=== PATIENT | female | born 1930 | race Caucasian/White ===

== ENCOUNTER 2020-03-03 10:48 | Inpatient (IN) | payer MEDICARE, OTHER ==
[~2020-03-03] VITALS: Ht 165.1 cm; Wt 74.6 kg
[2020-03-03] MEDS ORDERED: MORPHINE SULFATE 10 MG/ML VIAL. IV ONE ×3 (11:00→13:30)
--- NOTE | 2020-03-03 11:01 | EKG ---
[facility] [address] [place] [address] Test Date: 2020-03-03 Test Time: 10:59:15 Pat Name: CHANG RYAN Department: Room: Gender: F [employer]: : 1930 Requested By: GURINDER HATCH Order Number: [id number] Reading MD: Measurements Intervals [place] Rate: 105 P: 67 MO: 126 QRS: -36 QRSD: 150 T: 38 QT: 354 QTc: 472 Interpretive Statements SINUS TACHYCARDIA ATRIAL PREMATURE COMPLEX(ES) INTERPOLATED ATRIAL PREMATURE COMPLEX(ES) LEFT ATRIAL ABNORMALITY ABNORMAL LEFT AXIS DEVIATION LEFT ANTERIOR FASCICULAR BLOCK RIGHT BUNDLE BRANCH BLOCK BIFASCICULAR BLOCK QRS(T) CONTOUR ABNORMALITY CONSIDER INFERIOR MYOCARDIAL DAMAGE ABNORMAL ECG
[2020-03-03] MEDS ORDERED: ONDANSETRON PF 4 MG/2 ML VIAL. IVP ONE (11:15)
--- NOTE | 2020-03-03 11:18 | RAD ---
CHEST AP ONLY History: Reason: post CPR / Spl. Instructions: / History: Comparison: None. Findings: Diffuse interstitial thickening. Patchy mid lung opacities. Small left pleural effusion. Normal heart size. No pneumothorax. Impression: 1. Diffuse interstitial thickening and mid lung patchy opacities, may represent pulmonary edema or infection including viral pneumonia. 2. Small left pleural effusion. Electronically signed by: Hong Murray DO (03/03/2020 11:15 AM) [id number]
[2020-03-03 12:14] LABS: BASO # 0.2 x10^3/uL (0.0-0.2); BASO % 1 % (0-3); EOS # 0.9 x10^3/uL (0.0-0.7); EOS % 4 % (0-3); HEMATOCRIT 34.1 % (36.0-47.0); HEMOGLOBIN 11.3 g/dL (12.0-15.5); LYMPH # 2.3 x10^3/uL (1.0-4.8); LYMPH % 9 % (24-48); MEAN CORPUSCULAR HEMOGLOBIN 30 pg (25-35); MEAN CORPUSCULAR HGB CONC 33 g/dL (31-37); MEAN CORPUSCULAR VOLUME 90 fL (79-100); MONO # 0.9 x10^3/uL (0.0-1.1); MONO % 4 % (0-9); NEUT # 20.6 x10^3/uL (1.8-7.7); NEUT % 83 % (31-73); RED BLOOD COUNT 3.79 x10^6/uL (3.50-5.40); RED CELL DISTRIBUTION WIDTH 17.4 % (11.5-14.5); WHITE BLOOD COUNT 24.9 x10^3/uL (4.0-11.0)
[2020-03-03 12:23] LABS: CALCIUM 8.3 mg/dL (8.5-10.1); CREATININE 1.2 mg/dL (0.6-1.0); GFR 42.3; POTASSIUM 3.9 mmol/L (3.5-5.1)
[2020-03-03 13:28] LABS: PROTHROMBIN TIME PATIENT 16.6 SEC (11.7-14.0)
[2020-03-03 13:31] LABS: ALBUMIN 3.5 g/dL (3.4-5.0); DIRECT BILIRUBIN 0.1 mg/dL (0.0-0.2); TOTAL BILIRUBIN 0.3 mg/dL (0.2-1.0)
--- NOTE | 2020-03-03 14:10 | PHYS DOC ---
Past Medical History Past Medical History: Anemia, Arthritis, CHF, Constipation, COPD, Diverticulitis, Other Additional Past Medical Histor: Hypoxemia, Bursitis, Edema, Spinal Stenosis, see attached paperwork Past Surgical History: Other Additional Past Surgical Histo: unknown Smoking Status: Never Smoker Alcohol Use: None General Adult EDM: Chief Complaint: CPR/FULL ARREST HPI: HPI: Patient is a 89 year old female who presents after a possible code. According to EMS patient was at the diagnostic center getting a CT scan when she became apneic and lost a pulse. They did compressions for 9 minutes. She did not receive any medications. Upon EMS arrival patient had a pulse and was breathing on her own. Patient is moaning in pain but awake. She is complaining of shortness of breath. She is unable to provide much history at this time. Review of Systems: Review of Systems: Unable to obtain due to altered mental status Heart Score: Risk Factors: Risk Factors: DM, Current or recent (<one month) smoker, HTN, HLP, family history of CAD, obesity. Risk Scores: Score 0 - 3: 2.5% MACE over next 6 weeks - Discharge Home Score 4 - 6: 20.3% MACE over next 6 weeks - Admit for Clinical Observation Score 7 - 10: 72.7% MACE over next 6 weeks - Early Invasive Strategies Current Medications: Current Medications Medications (Trade) Dose Ordered Sig/Leobardo Start Time Stop Time Status Last Admin Dose Admin Morphine Sulfate (Morphine Sulfate) 5 mg 1X ONCE 03/03/20 13:30 03/03/20 13:31 DC 03/03/20 13:39 5 MG Ondansetron HCl (Zofran) 4 mg 1X ONCE 03/03/20 11:15 03/03/20 11:23 DC 03/03/20 11:46 4 MG Allergies: Allergies: Allergies Coded Allergies Type Severity Reaction Last Updated Verified Penicillins Allergy Intermediate rash 03/03/20 Yes Physical Exam: PE: General: Awake, alert, NAD. Well Nourished, well hydrated. Cooperative HEENT: Atraumatic, EOMI, PERRL, airway patent, moist oral mucosa Neck: Supple, trachea midline Respiratory: CTA bilaterally, normal effort, no wheezing/crackles CV: RRR, no murmur, cap refill <2 GI: Soft, nondistended, nontender, no masses MSK: No obvious deformities Skin: Warm, dry, intact Neuro: Moaning, sensory and motor grossly intact, no focal deficits Psych: Normal affect, normal mood, not suicidal or homicidal Current Patient Data: Labs: Laboratory Tests Test 03/03/20 11:55 White Blood Count 24.9 x10^3/uL (4.0-11.0) H Red Blood Count 3.79 x10^6/uL (3.50-5.40) Hemoglobin 11.3 g/dL (12.0-15.5) L Hematocrit 34.1 % (36.0-47.0) L Mean Corpuscular Volume 90 fL (79-100) Mean Corpuscular Hemoglobin 30 pg (25-35) Mean Corpuscular Hemoglobin Concent 33 g/dL (31-37) Red Cell Distribution Width 17.4 % (11.5-14.5) H Platelet Count 5410 x10^3/uL (140-400) *H Neutrophils (%) (Auto) 83 % (31-73) H Lymphocytes (%) (Auto) 9 % (24-48) L Monocytes (%) (Auto) 4 % (0-9) Eosinophils (%) (Auto) 4 % (0-3) H Basophils (%) (Auto) 1 % (0-3) Neutrophils # (Auto) 20.6 x10^3/uL (1.8-7.7) H Lymphocytes # (Auto) 2.3 x10^3/uL (1.0-4.8) Monocytes # (Auto) 0.9 x10^3/uL (0.0-1.1) Eosinophils # (Auto) 0.9 x10^3/uL (0.0-0.7) H Basophils # (Auto) 0.2 x10^3/uL (0.0-0.2) Platelet Estimate Pending Prothrombin Time 16.6 SEC (11.7-14.0) H Prothrombin Time INR 1.4 (0.8-1.1) H Sodium Level 134 mmol/L (136-145) L Potassium Level 3.9 mmol/L (3.5-5.1) Chloride Level 99 mmol/L (98-107) Carbon Dioxide Level 28 mmol/L (21-32) Anion Gap 7 (6-14) Blood Urea Nitrogen 18 mg/dL (7-20) Creatinine 1.2 mg/dL (0.6-1.0) H Estimated GFR (Cockcroft-Gault) 42.3 Glucose Level 130 mg/dL (70-99) H Calcium Level 8.3 mg/dL (8.5-10.1) L Total Bilirubin 0.3 mg/dL (0.2-1.0) Direct Bilirubin 0.1 mg/dL (0.0-0.2) Aspartate Amino Transferase (AST) 917 U/L (15-37) H Alanine Aminotransferase (ALT) 1067 U/L (14-59) H Alkaline Phosphatase 75 U/L (46-116) Total Protein 6.0 g/dL (6.4-8.2) L Albumin 3.5 g/dL (3.4-5.0) Laboratory Tests 03/03/20 11:55 Laboratory Tests 03/03/20 11:55 Vital Signs: Vital Signs Date Time Temp Pulse Resp B/P (MAP) Pulse Ox O2 Delivery O2 Flow Rate FiO2 03/03/20 13:39 21 90 NonRebreather Mask 03/03/20 10:48 96.6 92 159/73 (101) 96.6 EKG: EKG: [] Radiology/Procedures: Radiology/Procedures: [] Course & Med Decision Making: Course & Med Decision Making Pertinent Labs and Imaging studies reviewed. (See chart for details) Patient is an 89-year-old female presents to the emergency room after having a possible cardiac event. She did receive compressions. She is having chest pain or shortness of breath at this time. Is unclear if this why she had a cardiac event or if the symptoms are caused by her getting chest compressions. Patient is a DNR. This was noted as no further compressions will be done. CT chest, abdomen, pelvis will be ordered. Dragon Disclaimer: Dragon Disclaimer: This electronic medical record was generated, in whole or in part, using a voice recognition dictation system. Departure Departure Impression: Primary Impression: Cardiac arrest Additional Impression: Thrombocythemia Disposition: ADMITTED INPATIENT Condition: STABLE Referrals: JOHNNY BA MD (PCP) Justicifation of Admission Dx: Justifications for Admission: Justification of Admission Dx: Yes Critical Care Time Critical Care: Authorized and Performed by: Gurinder Max MD Total critical care time: approximately 35 minutes Due to a high probability of clinically significant, life threatening deterioration, the patient required my highest level of preparedness to intervene emergently and I personally spent this critical care time directly and personally managing the patient. This critical care time included obtaining a history; examining the patient; pulse oximetry; ventilator management if necessary; ordering and review of studies; arranging urgent treatment with development of a management plan; evaluation of patient's response to treatment; frequent reassessment; discussion with patient/family; and, discussions with other providers. This critical care time was performed to assess and manage the high probability of imminent, life-threatening deterioration that could result in multi-organ failure. It was exclusive of separately billable procedures and treating other patients and teaching time. Please see MDM section and the rest of the note for further information on patient assessment and treatment. GURINDER MAX MD Mar 03, 2020 14:10
--- NOTE | 2020-03-03 14:28 | PDOC1 ---
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 According to EMS patient was at the diagnostic center getting a CT scan of her abdomen and pelvis when she became apneic and lost a pulse. They did compressions for 9 minutes, no medications administered. EMS notes on arrival patient had a pulse and was breathing on her own and was able to talk. She is complaining of shortness of breath and abdominal and chest pain. She tells me she is tired and a little out of sorts. Does note she has had some right-sided numbness that been intermittent recently and is not told the other physicians about this is a little concerned. She does note that prior to this episode she did not have any chest pain. She has been struggling with abdominal pain and swelling and that is the reason she was going for CT scan. She has had dysuria and constipation for the past month. Labs significant for WBC 24.9, hemoglobin 11.3, platelets 5410, INR 1.4, AST 917, ALT 1067, NA 134, K3.4, BUN 18, CR 1.2 Admitted for further care. Past Medical History Cardiovascular: CHF, HTN, Hyperlipidemia Pulmonary: Other (Hypoxia) GI: Constipation, Diverticulosis Heme/Onc: Anemia NOS Hepatobiliary: No pertinent hx Psych: No pertinent hx Rheumatologic: No pertinent hx Infectious disease: No pertinent hx ENT: No pertinent hx Renal/: No pertinent hx Endocrine: No pertinent hx Dermatology: No pertinent hx Past Surgical History Past Surgical History: Total hip replacement (left) Family History Family History: Family History Unknown Social History Smoke: No ALCOHOL: none Drugs: None Current Problem List Problem List Problems Medical Problems: (1) Cardiac arrest Status: Acute (2) Thrombocythemia Status: Acute Current Medications Current Medications Current Medications Morphine Sulfate (Morphine Sulfate) 5 mg 1X ONCE IV Last administered on 03/03/20at 11:25; Start 03/03/20 at 11:00; Stop 03/03/20 at 11:23; Status DC Ondansetron HCl (Zofran) 4 mg 1X ONCE IVP Last administered on 03/03/20at 11:46; Start 03/03/20 at 11:15; Stop 03/03/20 at 11:23; Status DC Morphine Sulfate (Morphine Sulfate) 5 mg 1X ONCE IV Last administered on 03/03/20at 11:46; Start 03/03/20 at 11:45; Stop 03/03/20 at 11:46; Status DC Morphine Sulfate (Morphine Sulfate) 5 mg 1X ONCE IV Last administered on 03/03/20at 13:39; Start 03/03/20 at 13:30; Stop 03/03/20 at 13:31; Status DC Allergies Allergies: Coded Allergies: Penicillins (Verified Allergy, Intermediate, rash, 03/03/20) ROS General: YES: Fatigue, Malaise; No: Chills, Night Sweats, Appetite, Other PSYCHOLOGICAL ROS: YES: Disorientation; No: Anxiety, Behavioral Disorder, Concentration difficultie, Decreased libido, Depression, Hallucinations, Hostility, Irritablity, Memory difficulties, Mood Swings, Obsessive thoughts, Physical abuse, Sexual abuse, Sleep disturbances, Suicidal ideation, Other Eyes: No Blurry vision, No Decreased vision, No Double vision, No Dry eyes, No Excessive tearing, No Eye Pain, No Itchy Eyes, No Loss of vision, No Photo phobia, No Scotomata, No Uses contacts, No Uses glasses, No Other HEENT: No: Heacaches, Visual Changes, Hearing change, Nasal congestion, Nasal discharge, Oral lesions, Sinus pain, Sore Throat, Epistaxis, Sneezing, Snoring, Tinnitus, Vertigo, Vocal changes, Other ALLERGY AND IMMUNOLOGY: No: Hives, Insect Bite Sensitivity, Itchy/Watery Eyes, Nasal Congestion, Post Nasal Drip, Seasonal Allergies, Other Hematological and Lymphatic: No: Bleeding Problems, Blood Clots, Blood Transfusions, Brusing, Night Sweats, Pallor, Swollen Lymph Nodes, Other ENDOCRINE: No: Breast Changes, Galactorrhea, Hair Pattern Changes, Hot Flashes, Malaise/lethargy, Mood Swings, Palpitations, Polydipsia/polyuria, Skin Changes, Temperature Intolerance, Unexpected Weight Changes, Other Breast: No New/Changing Breast Lumps, No Nipple changes, No Nipple discharge, No Other Respiratory: YES: Shortness of breath; No: Cough, Hemoptysis, Orthopnea, Pleuritic Pain, SOB with excertion, Sputum Changes, Stridor, Tachypnea, Wheezing, Other Cardiovascular: yes Chest Pain; No Palpitations, No Orthopnea, No Paroxysmal Noc. Dyspnea, No Edema, No Lt Headedness, No Other Gastrointestinal: Yes Nausea, Yes Abdominal Pain, Yes Diarrhea, Yes Constipation; No Vomiting, No Melena, No Hematochezia, No Other Genitourinary: YES Dysuria, YES Frequency, YES Retention, YES Urgency; No Incontinence, No Hematuria, No Discharge, No Pain, No Flank Pain, No Other, No , No , No , No , No , No , No Musculoskeletal: No Gait Disturbance, No Joint Pain, No Joint Stiffness, No Joint Swelling, No Muscle Pain, No Muscular Weakness, No Pain In:, No Swelling In:, No Other Neurological: No Behavorial Changes, No Bowel/Bladder ControlChng, No Confusion, No Dizziness, No Gait Disturbance, No Headaches, No Impaired Coord/balance, No Memory Loss, No Numbness/Tingling, No Seizures, No Speech Problems, No Tremors, No Visual Changes, No Weakness, No Other Skin: No Dry Skin, No Eczema, No Hair Changes, No Lumps, No Mole Changes, No Mottling, No Nail Changes, No Pruritus, No Rash, No Skin Lesion Changes, No Other, No Acne Physical Exam General: Alert, Cooperative, moderate distress HEENT: Atraumatic, PERRLA, EOMI, Mucous membr. moist/pink Lungs: Other (Basilar crackles) Heart: S1S2, RRR, no thrills, no rubs, no gallops, no murmurs, other (Chest wall tenderness) Abdomen: Normal bowel sounds, No hepatosplenomegaly, No masses, Other (distended, tender RLQ) Rectal Exam: not examined Extremities: No clubbing, No cyanosis, No edema, Normal pulses, No tenderness/swelling Skin: No rashes, No breakdown, No significant lesion Neuro: Normal speech, Strength at 5/5 X4 ext, Normal tone, Sensation intact, Cranial nerves 3-12 NL, Reflexes 2+ Psych/Mental Status: Mental status NL, Mood NL Vitals Vitals Vital Signs Date Time Temp Pulse Resp B/P (MAP) Pulse Ox O2 Delivery O2 Flow Rate FiO2 03/03/20 13:49 98 23 100/56 (71) 100 NonRebreather Mask 15.0 03/03/20 10:48 96.6 96.6 Labs Labs Laboratory Tests Test 03/03/20 11:55 White Blood Count 24.9 x10^3/uL (4.0-11.0) Red Blood Count 3.79 x10^6/uL (3.50-5.40) Hemoglobin 11.3 g/dL (12.0-15.5) Hematocrit 34.1 % (36.0-47.0) Mean Corpuscular Volume 90 fL (79-100) Mean Corpuscular Hemoglobin 30 pg (25-35) Mean Corpuscular Hemoglobin Concent 33 g/dL (31-37) Red Cell Distribution Width 17.4 % (11.5-14.5) Platelet Count 5410 x10^3/uL (140-400) Neutrophils (%) (Auto) 83 % (31-73) Lymphocytes (%) (Auto) 9 % (24-48) Monocytes (%) (Auto) 4 % (0-9) Eosinophils (%) (Auto) 4 % (0-3) Basophils (%) (Auto) 1 % (0-3) Neutrophils # (Auto) 20.6 x10^3/uL (1.8-7.7) Lymphocytes # (Auto) 2.3 x10^3/uL (1.0-4.8) Monocytes # (Auto) 0.9 x10^3/uL (0.0-1.1) Eosinophils # (Auto) 0.9 x10^3/uL (0.0-0.7) Basophils # (Auto) 0.2 x10^3/uL (0.0-0.2) Prothrombin Time 16.6 SEC (11.7-14.0) Prothromb Time International Ratio 1.4 (0.8-1.1) Sodium Level 134 mmol/L (136-145) Potassium Level 3.9 mmol/L (3.5-5.1) Chloride Level 99 mmol/L (98-107) Carbon Dioxide Level 28 mmol/L (21-32) Anion Gap 7 (6-14) Blood Urea Nitrogen 18 mg/dL (7-20) Creatinine 1.2 mg/dL (0.6-1.0) Estimated GFR (Cockcroft-Gault) 42.3 Glucose Level 130 mg/dL (70-99) Calcium Level 8.3 mg/dL (8.5-10.1) Total Bilirubin 0.3 mg/dL (0.2-1.0) Direct Bilirubin 0.1 mg/dL (0.0-0.2) Aspartate Amino Transf (AST/SGOT) 917 U/L (15-37) Alanine Aminotransferase (ALT/SGPT) 1067 U/L (14-59) Alkaline Phosphatase 75 U/L (46-116) Total Protein 6.0 g/dL (6.4-8.2) Albumin 3.5 g/dL (3.4-5.0) Laboratory Tests Test 03/03/20 11:55 White Blood Count 24.9 x10^3/uL (4.0-11.0) Red Blood Count 3.79 x10^6/uL (3.50-5.40) Hemoglobin 11.3 g/dL (12.0-15.5) Hematocrit 34.1 % (36.0-47.0) Mean Corpuscular Volume 90 fL (79-100) Mean Corpuscular Hemoglobin 30 pg (25-35) Mean Corpuscular Hemoglobin Concent 33 g/dL (31-37) Red Cell Distribution Width 17.4 % (11.5-14.5) Platelet Count 5410 x10^3/uL (140-400) Neutrophils (%) (Auto) 83 % (31-73) Lymphocytes (%) (Auto) 9 % (24-48) Monocytes (%) (Auto) 4 % (0-9) Eosinophils (%) (Auto) 4 % (0-3) Basophils (%) (Auto) 1 % (0-3) Neutrophils # (Auto) 20.6 x10^3/uL (1.8-7.7) Lymphocytes # (Auto) 2.3 x10^3/uL (1.0-4.8) Monocytes # (Auto) 0.9 x10^3/uL (0.0-1.1) Eosinophils # (Auto) 0.9 x10^3/uL (0.0-0.7) Basophils # (Auto) 0.2 x10^3/uL (0.0-0.2) Prothrombin Time 16.6 SEC (11.7-14.0) Prothromb Time International Ratio 1.4 (0.8-1.1) Sodium Level 134 mmol/L (136-145) Potassium Level 3.9 mmol/L (3.5-5.1) Chloride Level 99 mmol/L (98-107) Carbon Dioxide Level 28 mmol/L (21-32) Anion Gap 7 (6-14) Blood Urea Nitrogen 18 mg/dL (7-20) Creatinine 1.2 mg/dL (0.6-1.0) Estimated GFR (Cockcroft-Gault) 42.3 Glucose Level 130 mg/dL (70-99) Calcium Level 8.3 mg/dL (8.5-10.1) Total Bilirubin 0.3 mg/dL (0.2-1.0) Direct Bilirubin 0.1 mg/dL (0.0-0.2) Aspartate Amino Transf (AST/SGOT) 917 U/L (15-37) Alanine Aminotransferase (ALT/SGPT) 1067 U/L (14-59) Alkaline Phosphatase 75 U/L (46-116) Total Protein 6.0 g/dL (6.4-8.2) Albumin 3.5 g/dL (3.4-5.0) Images Images CHEST: Findings: There are fairly prominent infiltrates bilaterally greatest of the lower lobes bilaterally, also involvement of the lingula and right upper lobe, minimally of the right middle lobe. There is possible left hilar lymphadenopathy with fullness in the left hilar region although poorly characterized without contrast, suspected more confluent joe mass about 1.6 cm short axis dimension. There is no pneumothorax. There is no pericardial fluid or significant dependent pleural fluid, likely trace right pleural fluid present. There is coronary calcification. Thoracic aortic caliber is within normal limits, no adjacent fluid collection. IMPRESSION: 1. There are prominent bilateral infiltrates greatest of the lower lobes bilaterally. Suboptimally characterized on this noncontrast exam, there is suspected left hilar lymphadenopathy. 2. There is coronary calcification. Abdomen pelvis FINDINGS: There is some motion degradation. There is residual enhancement of the bilateral kidneys presumably from previous outside facility postcontrast exam, no hydronephrosis. There is hypodense lesion of the medial left kidney 2.1 cm, density measurements greater than a simple cyst 30 Hounsfield units. There is another small hypodense lesion of the inferior left kidney about 1 cm with density measurements greater than a simple cyst 22 Hounsfield units. There is other tiny hypodense lesion of the lateral mid aspect of the right kidney too small to characterize 0.3 cm. There is also a 1.2 cm hypodense lesion of the superior left kidney, density measurements approximating a simple cyst 22 Hounsfield units. There is hypodense lesion of the medial right kidney about 3.3 cm with density measurements greater than a simple cyst 44 Hounsfield units. There is heterogeneity of the posterior right lobe of the liver otherwise difficult to accurately characterize without contrast and due to motion, area of heterogeneity at least 5.3 cm and some areas which are relatively hyperdense relative to the remainder of the hepatic parenchyma. Right lobe of liver is elongated measuring about 23 cm longitudinal. Gallbladder is present without obvious intraluminal abnormality by CT. There is some gas distention of the colon with air-fluid levels. There is mild hyperdense fluid/blood products in left paracolic gutter. There is mild dependent hyperdensity in the pelvis which may be due to mild hemorrhage. The margins of the spleen are indistinct which is suspicious for adjacent mild hemorrhage. There is scattered calcified plaque of the abdominal aorta and branches, greatest left renal artery. There is artifact in the pelvis created by left hip arthroplasty. There is contrast in the urinary bladder. There is degenerative disc disease greatest L1-L2. IMPRESSION: 1.There is mild hyperdense fluid or more likely blood products of the left paracolic gutter and also minimally dependently in the pelvis, also indistinct margins of the spleen which may be due to adjacent mild hemorrhage. 2. There is heterogeneity of the posterior right lobe of the liver possibly underlying mass poorly characterized on this exam. There is some relative increased density in this region which could be hyperdense mass or associated de gree of hemorrhage. 3. There is some gas distention of the colon with air-fluid levels, consideration of sequela of colitis. 4. There are hypodense foci of the bilateral kidneys as stated, may be somewhat complex cysts, do not have features of simple cysts based on density characteristics. Follow-up to assess stability such as in 6 months could be beneficial. VTE Prophylaxis Ordered VTE Prophylaxis Devices: No VTE Pharmacological Prophylaxi: Yes Assessment/Plan Assessment/Plan A/P: pulseless Apneic episode - s/p CPR with immediate return of spontaneous respiratory activity and pulse. conversant. No meds given during episode Acute on Chronic hypoxic respiratory failure - on chronic O2, now on 15 liters likely secondary to pulmonary contusions from CPR. Will consult pulmonology for further recs. COVID-19 testing is prudent. Thrombocytosis - likely 2/2 malignancy, will consult hematology/oncology Transaminitis - with abnormalities in liver this could be shock liver, but more likely has an active hepatitis process less likely viral more likely from underlying malignancy Acute encephalopathy - likely 2/2 resuscitative efforts. Will monitor mental status, has had some right sided numbness recently. CT head when stable Liver mass - likely from malignancy, will consult GI, trend transaminases Pulmonary infiltrates - likely pulmonary contusions Mediastinal lymphadenopathy - concerning for underling malignancy given her abnormal CT abdomen findings Elevated INR - no anticoagulants. Likely related to liver disease, shock liver vs infiltrative disease. Will monitor liver function RBBB - will find prior EKG Constipation - stool softeners Osteoporosis - s/p left hip fracture and replacement Hypertension - cont meds Allergic rhinitis - cont meds Insomnia - trazodone prn B12 deficiency - replace NACHO - on O2 Chronic combined systolic and diastolic congestive heart failure - no echo available, per SNF records - will watch fluid status closely Anemia of chronic disease FEN - ADAT PPX - lovenox DNR/DNI Dispo - guarded overall prognosis Justicifation of Admission Dx: Justifications for Admission: Justification of Admission Dx: Yes SIMON ZHANG MD Mar 03, 2020 14:27
[2020-03-03 14:32] LABS: % BANDS 23 % (0-9); % BASOS 3 % (0-3); % EOS 3 % (0-5); % LYMPHS 9 % (24-48); % METAS 6 % (0-0); % MONOS 5 % (0-10); % MYELOS 1 % (0-0)
[2020-03-03 14:33] LABS: PLT ESTIMATE INCREASED (ADEQUATE)
--- NOTE | 2020-03-03 15:26 | PDOC2 ---
LUZ BENITO MUTTON PUNCHER 03/03/20 1525: CARDIAC CONSULT DATE OF CONSULT Date of Consult DATE: 03/03/20 TIME: 15:05 REASON FOR CONSULT Reason for Consult: ?cardiac arrest REFERRING PHYSICIAN Referring Physician: Jose SOURCE Source: Chart review, Patient HISTORY OF PRESENT ILLNESS HISTORY OF PRESENT ILLNESS This is an 89 yo female admitted for complains of respiratory failure. 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 She was having CT abd today due to distended abd and pain and she was getting set up and was noted to be apneic and staff thought that she lost a pulse. CPR was performed for about 9 minutes per review and no medications given and byt the EMS came she was already waking up and fighting the oxygen. It was unclear what was her rhythm at that time but presently she has RBBB and no prior EKG to compare with. She is awake and appearing weak and painful to her chest likely from CPR and also tender to abdomen with firmness. She is somewhat a poor historian. No noted hx of CAD, CVA, VTE in the past but notable for high platelet count and was noted few weeks ago with PLT at 5400 x 103 and was recently referred to hematology but has not been seen yet. This is new and she has no meds currently for it. No nausea, no chest pain or SOA prior to CT. This is sudden onset. PAST MEDICAL HISTORY Cardiovascular: Hyperlipidemia GI: Constipation, GERD Heme/Onc: Other (thrombocythemia) Psych: Anxiety Musculoskeletal: Osteoarthritis ENT: Allergic Rhinitis Renal/: Urinary Incontinence PAST SURGICAL HISTORY Past Surgical History: Arthroscopy (right shoulder replacement) FAMILY HISTORY Family History: Family History Unknown SOCIAL HISTORY Smoke: No ALCOHOL: none Drugs: None Lives: Longterm CURRENT MEDICATIONS CURRENT MEDICATIONS Current Medications Medications (Trade) Dose Ordered Sig/Leobardo Route PRN Reason Start Time Stop Time Status Last Admin Dose Admin Morphine Sulfate (Morphine Sulfate) 5 mg 1X ONCE IV 03/03/20 11:00 03/03/20 11:23 DC 03/03/20 11:25 Ondansetron HCl (Zofran) 4 mg 1X ONCE IVP 03/03/20 11:15 03/03/20 11:23 DC 03/03/20 11:46 Morphine Sulfate (Morphine Sulfate) 5 mg 1X ONCE IV 03/03/20 11:45 03/03/20 11:46 DC 03/03/20 11:46 Morphine Sulfate (Morphine Sulfate) 5 mg 1X ONCE IV 03/03/20 13:30 03/03/20 13:31 DC 03/03/20 13:39 ALLERGIES ALLERGIES: Coded Allergies: Penicillins (Verified Allergy, Intermediate, rash, 03/03/20) ROS Review of System 14 point ROS evaluated with pertinent positives noted per HPI PHYSICAL EXAM General: Alert, Cooperative, moderate distress HEENT: Atraumatic, Mucous membr. moist/pink Lungs: Other (diminished, NRB in place) Heart: Regular rate (SR with RBBB) Abdomen: Other (distended abdomen and firm, tender) Extremities: No cyanosis, No edema Neuro: Normal speech, Sensation intact Psych/Mental Status: Other (flat affect) MUSCULOSKELETAL: Osteoarthritic changes both hands VITALS/I&O VITALS/I&O: Vital Signs Date Time Temp Pulse Resp B/P (MAP) Pulse Ox O2 Delivery O2 Flow Rate FiO2 03/03/20 13:49 98 23 100/56 (71) 100 NonRebreather Mask 15.0 03/03/20 10:48 96.6 96.6 LABS Lab: Laboratory Tests Test 03/03/20 11:55 White Blood Count 24.9 x10^3/uL (4.0-11.0) H Red Blood Count 3.79 x10^6/uL (3.50-5.40) Hemoglobin 11.3 g/dL (12.0-15.5) L Hematocrit 34.1 % (36.0-47.0) L Mean Corpuscular Volume 90 fL (79-100) Mean Corpuscular Hemoglobin 30 pg (25-35) Mean Corpuscular Hemoglobin Concent 33 g/dL (31-37) Red Cell Distribution Width 17.4 % (11.5-14.5) H Platelet Count 5410 x10^3/uL (140-400) *H Neutrophils (%) (Auto) 83 % (31-73) H Lymphocytes (%) (Auto) 9 % (24-48) L Monocytes (%) (Auto) 4 % (0-9) Eosinophils (%) (Auto) 4 % (0-3) H Basophils (%) (Auto) 1 % (0-3) Neutrophils # (Auto) 20.6 x10^3/uL (1.8-7.7) H Lymphocytes # (Auto) 2.3 x10^3/uL (1.0-4.8) Monocytes # (Auto) 0.9 x10^3/uL (0.0-1.1) Eosinophils # (Auto) 0.9 x10^3/uL (0.0-0.7) H Basophils # (Auto) 0.2 x10^3/uL (0.0-0.2) Segmented Neutrophils % 50 % (35-66) Band Neutrophils % 23 % (0-9) H Lymphocytes % 9 % (24-48) L Monocytes % 5 % (0-10) Eosinophils % 3 % (0-5) Basophils % 3 % (0-3) Metamyelocytes % 6 % (0-0) H Myelocytes % 1 % (0-0) H Platelet Estimate Increased (ADEQUATE) Large Platelets Mod Giant Platelets Few Prothrombin Time 16.6 SEC (11.7-14.0) H Prothrombin Time INR 1.4 (0.8-1.1) H Sodium Level 134 mmol/L (136-145) L Potassium Level 3.9 mmol/L (3.5-5.1) Chloride Level 99 mmol/L (98-107) Carbon Dioxide Level 28 mmol/L (21-32) Anion Gap 7 (6-14) Blood Urea Nitrogen 18 mg/dL (7-20) Creatinine 1.2 mg/dL (0.6-1.0) H Estimated GFR (Cockcroft-Gault) 42.3 Glucose Level 130 mg/dL (70-99) H Calcium Level 8.3 mg/dL (8.5-10.1) L Total Bilirubin 0.3 mg/dL (0.2-1.0) Direct Bilirubin 0.1 mg/dL (0.0-0.2) Aspartate Amino Transferase (AST) 917 U/L (15-37) H Alanine Aminotransferase (ALT) 1067 U/L (14-59) H Alkaline Phosphatase 75 U/L (46-116) Total Protein 6.0 g/dL (6.4-8.2) L Albumin 3.5 g/dL (3.4-5.0) Laboratory Tests 03/03/20 11:55 Laboratory Tests 03/03/20 11:55 ASSESSMENT/PLAN ASSESSMENT/PLAN 1. Acute respiratory failure: unclear if she truly had a cardiac arrest but noted with apnea. CPR performed 9 minutes, no medications nor established rhythm strips during the event. 2. Atypical Chest pain: likely from CPR, tender to touch 3. Severe Thrombocythemia: PLT 5410, this is recently noted as an outpt and she was referred to hematology but appears to have not been seen. ?malignancy/myelodysplasia? 4. Severe transaminitis with abdominal pain and distended abd 5. RBBB: S1Q3T3: no prior for comparison 6. Morphine allergy? noted per chart review in the past. Received in ED no reaction so far. 7. Leukocytosis 8. Diastolic CHF Recommendations 1. Mg, TSH, lipid, UA, DDIMER, ABG, troponin. TTE once covid is ruled out 2. Now a DNR. Awaiting CT chest/abd/pelvis 3. Will test for covid-19 and transfer to [facility] 4. Consult hematology and pulmonary and GI 5. Monitor rhythm supportive care. Lidoderm for her chest. LasJACQUE Curiel MD 03/03/20 1902: CARDIAC CONSULT ASSESSMENT/PLAN ASSESSMENT/PLAN Patient seen and examined. Agree with APPLICATION SPECIALIST's assessment and plan. Patient probably had PEA, no evidence for VT/VF based on review of records Tele did not show any significant arrhythmias Covid test pending Continue workup and management of ARF per pulm team - defer w/u for possible PE to them We will obtain 2D echo once Covid ruled out CP atypical, reproducible and most probably musculoskeletal from CPR GI w/u for abd pain and transaminitis Thank you for your consultation LUZ BENITO APRN Mar 03, 2020 15:25 JACQUE HU MD Mar 03, 2020 19:02
--- NOTE | 2020-03-03 15:32 | RAD ---
CT CHEST ABDOMEN PELVIS WO Indication: Distention, chest pain, status post CPR Technique: Noncontrast CT imaging was performed of the chest, abdomen, pelvis, multiplanar reconstruction images submitted. There is some oral contrast present. One or more of the following individualized dose reduction techniques were utilized for this examination: 1. Automated exposure control 2. Adjustment of the mA and/or kV according to patient size 3. Use of iterative reconstruction technique. Comparison: None CHEST: Findings: There are fairly prominent infiltrates bilaterally greatest of the lower lobes bilaterally, also involvement of the lingula and right upper lobe, minimally of the right middle lobe. There is possible left hilar lymphadenopathy with fullness in the left hilar region although poorly characterized without contrast, suspected more confluent joe mass about 1.6 cm short axis dimension. There is no pneumothorax. There is no pericardial fluid or significant dependent pleural fluid, likely trace right pleural fluid present. There is coronary calcification. Thoracic aortic caliber is within normal limits, no adjacent fluid collection. IMPRESSION: 1. There are prominent bilateral infiltrates greatest of the lower lobes bilaterally. Suboptimally characterized on this noncontrast exam, there is suspected left hilar lymphadenopathy. 2. There is coronary calcification. Abdomen pelvis FINDINGS: There is some motion degradation. There is residual enhancement of the bilateral kidneys presumably from previous outside facility postcontrast exam, no hydronephrosis. There is hypodense lesion of the medial left kidney 2.1 cm, density measurements greater than a simple cyst 30 Hounsfield units. There is another small hypodense lesion of the inferior left kidney about 1 cm with density measurements greater than a simple cyst 22 Hounsfield units. There is other tiny hypodense lesion of the lateral mid aspect of the right kidney too small to characterize 0.3 cm. There is also a 1.2 cm hypodense lesion of the superior left kidney, density measurements approximating a simple cyst 22 Hounsfield units. There is hypodense lesion of the medial right kidney about 3.3 cm with density measurements greater than a simple cyst 44 Hounsfield units. There is heterogeneity of the posterior right lobe of the liver otherwise difficult to accurately characterize without contrast and due to motion, area of heterogeneity at least 5.3 cm and some areas which are relatively hyperdense relative to the remainder of the hepatic parenchyma. Right lobe of liver is elongated measuring about 23 cm longitudinal. Gallbladder is present without obvious intraluminal abnormality by CT. There is some gas distention of the colon with air-fluid levels. There is mild hyperdense fluid/blood products in left paracolic gutter. There is mild dependent hyperdensity in the pelvis which may be due to mild hemorrhage. The margins of the spleen are indistinct which is suspicious for adjacent mild hemorrhage. There is scattered calcified plaque of the abdominal aorta and branches, greatest left renal artery. There is artifact in the pelvis created by left hip arthroplasty. There is contrast in the urinary bladder. There is degenerative disc disease greatest L1-L2. IMPRESSION: 1.There is mild hyperdense fluid or more likely blood products of the left paracolic gutter and also minimally dependently in the pelvis, also indistinct margins of the spleen which may be due to adjacent mild hemorrhage. 2. There is heterogeneity of the posterior right lobe of the liver possibly underlying mass poorly characterized on this exam. There is some relative increased density in this region which could be hyperdense mass or associated degree of hemorrhage. 3. There is some gas distention of the colon with air-fluid levels, consideration of sequela of colitis. 4. There are hypodense foci of the bilateral kidneys as stated, may be somewhat complex cysts, do not have features of simple cysts based on density characteristics. Follow-up to assess stability such as in 6 months could be beneficial. Electronically signed by: Stuart Cleveland MD (03/03/2020 3:29 PM) [facility]CR[facility]ENTOJignesh
--- NOTE | 2020-03-03 15:35 | NUR ---
PATIENT TO ROOM 246 PER [facility] BY ED RN. PATIENT ON 15L NON REBREATHER MASK. PATIENT COMPLAINING OF 10/10 PAIN AND MOANING AT THIS TIME. PATIENT REPOSITIONED IN BED. PATIENT ASSESSED AT THIS TIME . DR LEATHA GOMEZ. WILL CONTINUE TO MONITOR PATIENT.
[2020-03-03 15:45] VITALS: BP 138/62
[2020-03-03] MEDS: fentaNYL PF VIAL 100 MCG/2 ML VIAL IVP PRN ×2 (15:54→21:54)
[2020-03-03] MEDS ORDERED: traMADol 50 MG TABLET PO PRN (16:00)
--- NOTE | 2020-03-03 16:11 | PDOC2 ---
GI CONSULT Reason For Consult: transaminitis HPI: HPI: 89 y/o female admitted through ER. Per chart and discussion w/ staff, was [facility] A/P for abdominal distention/discomfort and constipation. From detention. Became unresponsive, lost pulse, had CPR. History limited from her - she is quite uncomfortable, seems overwhelmed. H/o GERD - can't remember what she takes. Eats "small meals." Stooled a little bit yesterday - has been taking Miralax and stool softeners. More than one colonoscopy in the past - recalls last 1-2 years ago as normal. "Diverticulitis" list in chart. "Liver problem" related to RA medication in the past, also "blood problem" related to medication in the past. Denies h/o cancer. PMH: PMH: per chart/pt CHF, bursitis, spinal stenosis, RA appendectomy FH: Family History: No pertinent hx ROS: chest pain after CPR, abd pain, hurts all over Vitals: Vitals: Vital Signs Date Time Temp Pulse Resp B/P (MAP) Pulse Ox O2 Delivery O2 Flow Rate FiO2 03/03/20 15:45 98.0 95 18 138/62 (87) 91 NonRebreather Mask 98.0 03/03/20 13:49 15.0 Labs: Labs: Laboratory Tests Test 03/03/20 11:55 White Blood Count 24.9 x10^3/uL (4.0-11.0) Red Blood Count 3.79 x10^6/uL (3.50-5.40) Hemoglobin 11.3 g/dL (12.0-15.5) Hematocrit 34.1 % (36.0-47.0) Mean Corpuscular Volume 90 fL (79-100) Mean Corpuscular Hemoglobin 30 pg (25-35) Mean Corpuscular Hemoglobin Concent 33 g/dL (31-37) Red Cell Distribution Width 17.4 % (11.5-14.5) Platelet Count 5410 x10^3/uL (140-400) Neutrophils (%) (Auto) 83 % (31-73) Lymphocytes (%) (Auto) 9 % (24-48) Monocytes (%) (Auto) 4 % (0-9) Eosinophils (%) (Auto) 4 % (0-3) Basophils (%) (Auto) 1 % (0-3) Neutrophils # (Auto) 20.6 x10^3/uL (1.8-7.7) Lymphocytes # (Auto) 2.3 x10^3/uL (1.0-4.8) Monocytes # (Auto) 0.9 x10^3/uL (0.0-1.1) Eosinophils # (Auto) 0.9 x10^3/uL (0.0-0.7) Basophils # (Auto) 0.2 x10^3/uL (0.0-0.2) Segmented Neutrophils % 50 % (35-66) Band Neutrophils % 23 % (0-9) Lymphocytes % 9 % (24-48) Monocytes % 5 % (0-10) Eosinophils % 3 % (0-5) Basophils % 3 % (0-3) Metamyelocytes % 6 % (0-0) Myelocytes % 1 % (0-0) Platelet Estimate Increased (ADEQUATE) Large Platelets Mod Giant Platelets Few Prothrombin Time 16.6 SEC (11.7-14.0) Prothromb Time International Ratio 1.4 (0.8-1.1) Sodium Level 134 mmol/L (136-145) Potassium Level 3.9 mmol/L (3.5-5.1) Chloride Level 99 mmol/L (98-107) Carbon Dioxide Level 28 mmol/L (21-32) Anion Gap 7 (6-14) Blood Urea Nitrogen 18 mg/dL (7-20) Creatinine 1.2 mg/dL (0.6-1.0) Estimated GFR (Cockcroft-Gault) 42.3 Glucose Level 130 mg/dL (70-99) Calcium Level 8.3 mg/dL (8.5-10.1) Total Bilirubin 0.3 mg/dL (0.2-1.0) Direct Bilirubin 0.1 mg/dL (0.0-0.2) Aspartate Amino Transf (AST/SGOT) 917 U/L (15-37) Alanine Aminotransferase (ALT/SGPT) 1067 U/L (14-59) Alkaline Phosphatase 75 U/L (46-116) Total Protein 6.0 g/dL (6.4-8.2) Albumin 3.5 g/dL (3.4-5.0) Allergies: Coded Allergies: Penicillins (Verified Allergy, Intermediate, rash, 03/03/20) Medications: Current Medications Medications (Trade) Dose Ordered Sig/Leobardo Route PRN Reason Start Time Stop Time Status Last Admin Dose Admin Morphine Sulfate (Morphine Sulfate) 5 mg 1X ONCE IV 03/03/20 11:00 03/03/20 11:23 DC 03/03/20 11:25 Ondansetron HCl (Zofran) 4 mg 1X ONCE IVP 03/03/20 11:15 03/03/20 11:23 DC 03/03/20 11:46 Morphine Sulfate (Morphine Sulfate) 5 mg 1X ONCE IV 03/03/20 11:45 03/03/20 11:46 DC 03/03/20 11:46 Morphine Sulfate (Morphine Sulfate) 5 mg 1X ONCE IV 03/03/20 13:30 03/03/20 13:31 DC 03/03/20 13:39 Imaging: Imaging: CXR Impression: 1. Diffuse interstitial thickening and mid lung patchy opacities, may represent pulmonary edema or infection including viral pneumonia. 2. Small left pleural effusion. CT A/P IMPRESSION: 1.There is mild hyperdense fluid or more likely blood products of the leftparacolic gutter and also minimally dependently in the pelvis, also indistinct margins of the spleen which may be due to adjacent mild hemorrhage. 2. There is heterogeneity of the posterior right lobe of the liver possibly underlying mass poorly characterized on this exam. There is some relative increased density in this region which could be hyperdense mass or associated degree of hemorrhage. 3. There is some gas distention of the colon with air-fluid levels, consideration of sequela of colitis. 4. There are hypodense foci of the bilateral kidneys as stated, may be somewhat complex cysts, do not have features of simple cysts based on density kennedy cteristics. Follow-up to assess stability such as in 6 months could be beneficial. PE: GEN: clearly not feeling well, staff at bedside HEENT: Atraumatic, PERRL LUNGS: breathing mask, diminished HEART: mildly tachycardic ABD: distended, uncomfortable - worst periumbilical but diffuse, occasional gurgle EXTREMITY: No edema SKIN: No rashes, no jaundice NEURO/PSYCH: awake and alert, moaning, anxious A/P: A/P: S/p arrest, resp failure Leukocytosis, thrombocytosis, transaminitis H/o abdominal distention, pain, constipation Abnormal CT - (as above) GERD CRC screen - more than one colonoscopy in the past H/o RA - ?past methotrexate use w/ "liver problem" -- Hopefully able to gather more information later on (where colonoscopy done, etc). D/w Dr. Valencia - monitor LFTs, check US re: liver and spleen findings on CT. PPI for GERD. MIGUEL ÁNGEL RODRIGUES Mar 03, 2020 16:11
[2020-03-03 16:19] LABS: CHOLESTEROL/HDL RATIO 6.3
--- NOTE | 2020-03-03 16:20 | NUR ---
CRITICAL TROPONIN CALLED TO ROMIE BENITO APRN. NO ORDERS RECEIVED AT THIS TIME. WILL CONTINUE TO MONITOR PATIENT.
[2020-03-03] MEDS ORDERED: BREO ELLIPTA 11 EACH IH (16:39)
[2020-03-03] MEDS ORDERED: DOCU-109 PO (16:39)
[2020-03-03] MEDS ORDERED: MULT-114 PO (16:39)
[2020-03-03] MEDS ORDERED: AMLO2.5T5 PO (16:39)
[2020-03-03] MEDS ORDERED: BISA10SU55 RC (16:39)
[2020-03-03] MEDS ORDERED: LIDO700A21 TP (16:39)
[2020-03-03] MEDS ORDERED: MONT10TA49 PO (16:39)
[2020-03-03] MEDS ORDERED: HYDR1KIT RC (16:39)
[2020-03-03] MEDS ORDERED: TRAZ-123 PO (16:39)
[2020-03-03] MEDS ORDERED: ATROVENT HFA12.9 GM IH (16:39)
[2020-03-03] MEDS ORDERED: PROP15DR EACHEYE (16:39)
[2020-03-03] MEDS ORDERED: TRAM50TA PO (16:39)
[2020-03-03] MEDS ORDERED: MAG-115 PO (16:39)
[2020-03-03] MEDS ORDERED: CETI10TA74 PO (16:39)
[2020-03-03] MEDS ORDERED: LORA0.5T96 PO (16:39)
[2020-03-03] MEDS ORDERED: ENOXAPARIN 40 MG/0.4 ML SYRINGE. SQ SCH (17:00)
--- NOTE | 2020-03-03 17:02 | PDOC ---
PULMONARY PROGRESS NOTES Vitals Vital Signs Date Time Temp Pulse Resp B/P (MAP) Pulse Ox O2 Delivery O2 Flow Rate FiO2 03/03/20 16:45 Non-Rebreather 15.0 03/03/20 15:54 94 03/03/20 15:45 98.0 95 18 138/62 (87) 98.0 Labs Laboratory Tests Test 03/03/20 11:55 White Blood Count 24.9 x10^3/uL (4.0-11.0) Red Blood Count 3.79 x10^6/uL (3.50-5.40) Hemoglobin 11.3 g/dL (12.0-15.5) Hematocrit 34.1 % (36.0-47.0) Mean Corpuscular Volume 90 fL (79-100) Mean Corpuscular Hemoglobin 30 pg (25-35) Mean Corpuscular Hemoglobin Concent 33 g/dL (31-37) Red Cell Distribution Width 17.4 % (11.5-14.5) Platelet Count 5410 x10^3/uL (140-400) Neutrophils (%) (Auto) 83 % (31-73) Lymphocytes (%) (Auto) 9 % (24-48) Monocytes (%) (Auto) 4 % (0-9) Eosinophils (%) (Auto) 4 % (0-3) Basophils (%) (Auto) 1 % (0-3) Neutrophils # (Auto) 20.6 x10^3/uL (1.8-7.7) Lymphocytes # (Auto) 2.3 x10^3/uL (1.0-4.8) Monocytes # (Auto) 0.9 x10^3/uL (0.0-1.1) Eosinophils # (Auto) 0.9 x10^3/uL (0.0-0.7) Basophils # (Auto) 0.2 x10^3/uL (0.0-0.2) Segmented Neutrophils % 50 % (35-66) Band Neutrophils % 23 % (0-9) Lymphocytes % 9 % (24-48) Monocytes % 5 % (0-10) Eosinophils % 3 % (0-5) Basophils % 3 % (0-3) Metamyelocytes % 6 % (0-0) Myelocytes % 1 % (0-0) Platelet Estimate Increased (ADEQUATE) Large Platelets Mod Giant Platelets Few Prothrombin Time 16.6 SEC (11.7-14.0) Prothromb Time International Ratio 1.4 (0.8-1.1) D-Dimer (Bonita) 5.50 ug/mlFEU (0.00-0.50) Sodium Level 134 mmol/L (136-145) Potassium Level 3.9 mmol/L (3.5-5.1) Chloride Level 99 mmol/L (98-107) Carbon Dioxide Level 28 mmol/L (21-32) Anion Gap 7 (6-14) Blood Urea Nitrogen 18 mg/dL (7-20) Creatinine 1.2 mg/dL (0.6-1.0) Estimated GFR (Cockcroft-Gault) 42.3 Glucose Level 130 mg/dL (70-99) Calcium Level 8.3 mg/dL (8.5-10.1) Magnesium Level 2.9 mg/dL (1.8-2.4) Total Bilirubin 0.3 mg/dL (0.2-1.0) Direct Bilirubin 0.1 mg/dL (0.0-0.2) Aspartate Amino Transf (AST/SGOT) 917 U/L (15-37) Alanine Aminotransferase (ALT/SGPT) 1067 U/L (14-59) Alkaline Phosphatase 75 U/L (46-116) Creatine Kinase 55 U/L (26-192) Troponin I Quantitative 0.153 ng/mL (0.000-0.055) CQ-Vvk-X-Type Natriuretic Peptide 490 pg/mL (0-449) Total Protein 6.0 g/dL (6.4-8.2) Albumin 3.5 g/dL (3.4-5.0) Triglycerides Level 149 mg/dL (0-150) Cholesterol Level 221 mg/dL (0-200) LDL Cholesterol, Calculated 156 mg/dL (0-100) VLDL Cholesterol, Calculated 30 mg/dL (0-40) Non-HDL Cholesterol Calculated 186 mg/dL (0-129) HDL Cholesterol 35 mg/dL (40-60) Cholesterol/HDL Ratio 6.3 Thyroid Stimulating Hormone (TSH) 6.540 uIU/mL (0.358-3.74) Laboratory Tests Test 03/03/20 11:55 White Blood Count 24.9 x10^3/uL (4.0-11.0) Red Blood Count 3.79 x10^6/uL (3.50-5.40) Hemoglobin 11.3 g/dL (12.0-15.5) Hematocrit 34.1 % (36.0-47.0) Mean Corpuscular Volume 90 fL (79-100) Mean Corpuscular Hemoglobin 30 pg (25-35) Mean Corpuscular Hemoglobin Concent 33 g/dL (31-37) Red Cell Distribution Width 17.4 % (11.5-14.5) Platelet Count 5410 x10^3/uL (140-400) Neutrophils (%) (Auto) 83 % (31-73) Lymphocytes (%) (Auto) 9 % (24-48) Monocytes (%) (Auto) 4 % (0-9) Eosinophils (%) (Auto) 4 % (0-3) Basophils (%) (Auto) 1 % (0-3) Neutrophils # (Auto) 20.6 x10^3/uL (1.8-7.7) Lymphocytes # (Auto) 2.3 x10^3/uL (1.0-4.8) Monocytes # (Auto) 0.9 x10^3/uL (0.0-1.1) Eosinophils # (Auto) 0.9 x10^3/uL (0.0-0.7) Basophils # (Auto) 0.2 x10^3/uL (0.0-0.2) Segmented Neutrophils % 50 % (35-66) Band Neutrophils % 23 % (0-9) Lymphocytes % 9 % (24-48) Monocytes % 5 % (0-10) Eosinophils % 3 % (0-5) Basophils % 3 % (0-3) Metamyelocytes % 6 % (0-0) Myelocytes % 1 % (0-0) Platelet Estimate Increased (ADEQUATE) Large Platelets Mod Giant Platelets Few Prothrombin Time 16.6 SEC (11.7-14.0) Prothromb Time International Ratio 1.4 (0.8-1.1) D-Dimer (Bonita) 5.50 ug/mlFEU (0.00-0.50) Sodium Level 134 mmol/L (136-145) Potassium Level 3.9 mmol/L (3.5-5.1) Chloride Level 99 mmol/L (98-107) Carbon Dioxide Level 28 mmol/L (21-32) Anion Gap 7 (6-14) Blood Urea Nitrogen 18 mg/dL (7-20) Creatinine 1.2 mg/dL (0.6-1.0) Estimated GFR (Cockcroft-Gault) 42.3 Glucose Level 130 mg/dL (70-99) Calcium Level 8.3 mg/dL (8.5-10.1) Magnesium Level 2.9 mg/dL (1.8-2.4) Total Bilirubin 0.3 mg/dL (0.2-1.0) Direct Bilirubin 0.1 mg/dL (0.0-0.2) Aspartate Amino Transf (AST/SGOT) 917 U/L (15-37) Alanine Aminotransferase (ALT/SGPT) 1067 U/L (14-59) Alkaline Phosphatase 75 U/L (46-116) Creatine Kinase 55 U/L (26-192) Troponin I Quantitative 0.153 ng/mL (0.000-0.055) LK-Lne-B-Type Natriuretic Peptide 490 pg/mL (0-449) Total Protein 6.0 g/dL (6.4-8.2) Albumin 3.5 g/dL (3.4-5.0) Triglycerides Level 149 mg/dL (0-150) Cholesterol Level 221 mg/dL (0-200) LDL Cholesterol, Calculated 156 mg/dL (0-100) VLDL Cholesterol, Calculated 30 mg/dL (0-40) Non-HDL Cholesterol Calculated 186 mg/dL (0-129) HDL Cholesterol 35 mg/dL (40-60) Cholesterol/HDL Ratio 6.3 Thyroid Stimulating Hormone (TSH) 6.540 uIU/mL (0.358-3.74) Medications Active Scripts Medications Dose Route/Sig Max Daily Dose Days Date Category Dose Instructions Atrovent Hfa (Ipratropium [place]) 12.9 Gm Hfa.aer.ad 2 Puff IH BID 03/03/20 Reported Lidocaine-Hc 3-1% Cream Kit (Hydrocortisone Ac/Lidocaine) 1 Each Kit 1 Each RC TID 03/03/20 Reported Tramadol Hcl 50 Mg Tablet 50 Mg PO Q4HRS PRN 03/03/20 Reported Systane 0.3-0.4% Eye Drops (Propylene Glycol/Peg 400) 15 Ml Drops 1 Drop EACHEYE QID 03/03/20 Reported Colace (Docusate Sodium) 100 Mg Capsule 200 Mg PO DAILY 03/03/20 Reported Ativan (Lorazepam) 0.5 Mg Tablet 0.5 Mg PO HS 03/03/20 Reported Lidocaine PATCH (Lidocaine) 1 Each Adh..patch 1 Each TP DAILY 03/03/20 Reported REMOVE AFTER 12 HOURS Multivitamins With Minerals (Multivitamin With Minerals) 1 Each Tablet 1 Tab PO DAILY 30 03/03/20 Reported Zyrtec (Cetirizine Hcl) 10 Mg Tablet 1 Tab PO DAILY 03/03/20 Reported Breo Ellipta 100-25 Mcg Inh (Fluticasone/Vilanterol) 1 Each Aer.pow.ba 1 Puff IH DAILY 03/03/20 Reported Dulcolax (Bisacodyl) 10 Mg Supp.rect 1 Supp RC DAILY 10 03/03/20 Reported Amlodipine Besylate 2.5 Mg Tablet 2.5 Mg PO DAILY 03/03/20 Reported Trazodone Hcl 100 Mg Tablet 1 Tab PO QHS 03/03/20 Reported Montelukast Sodium Tablet (Montelukast Sodium) 10 Mg Tablet 10 Mg PO HS 03/03/20 Reported Mylanta Maximum Strength Liq (Mag Hydrox/Aluminum Hyd/Simeth) 355 Ml Oral.susp 30 Ml PO PRN Q4HRS PRN 03/03/20 Reported Impression . Patient evaluated, full note dictated Complex medical decision making, presents with out of hospital cardiac possibly cardiopulmonary arrest, abnormal CT chest revealing bilateral pulmonary infiltrates leukocytosis thrombocytosis Needs to be ruled out for COVID-19, will add antibiotics for possible pneumonia Recommend IV fluids and possible CT angiogram in the morning if creatinine has improved INOCENCIO ORTA MD Mar 03, 2020 17:02
[2020-03-03] MEDS: IV RINGERS,LACTATED 1000ML 1,000 ML IV SCH ×2 (17:15→21:55)
--- NOTE | 2020-03-03 17:27 | CONS ---
DATE OF CONSULTATION: 03/03/2020 ATTENDING PHYSICIAN: Nicho Warren MD REASON FOR CONSULTATION: The patient seen in pulmonary consultation at the request of Dr. Warren for [id number] questionable cardiopulmonary arrest. HISTORY OF PRESENT ILLNESS: The patient is an 89-year-old who is being worked up as an outpatient for abdominal pain. Apparently, she has also had some abnormal CBC revealing thrombocytosis, was due to be seen at [facility] for an evaluation. The patient was undergoing a CT of the abdomen and pelvis. She became apneic and lost her pulse, there was 9 minutes of CPR. I discussed the case with Cardiology Service, it is unclear if she had an arrhythmia. She did receive some chest compression, but was never intubated, was not given any IV medications. Apparently when EMS arrived, the patient came around and she was awake, alert. She was transferred to [place] for further evaluation. A scan of the chest, abdomen and pelvis report was noted. From a pulmonary standpoint of view, there are bilateral infiltrates, some appeared to be alveolar in nature. There was no contrast given. There was a questionable left hilar lymphadenopathy. The patient reports that she has never smoked. She has had asthma in the past, but outside of that she has been pretty healthy otherwise. She denies fever, chills, nausea, vomiting. No COVID-19 exposures. No hemoptysis. PAST MEDICAL HISTORY: Hyperlipidemia, gastroesophageal reflux, thrombocytosis, anxiety, osteoarthritis. PAST SURGICAL HISTORY: Previous right shoulder replacement. SOCIAL HISTORY: She is a sister, currently resides at [facility] at [facility] in [place], [place]. REVIEW OF SYSTEMS: CONSTITUTIONAL: No fever or chills. EYES: No change in visual acuity. HENT: No nasal congestion or sore throat. PULMONARY: As indicated above. No prior history of DVT or pulmonary embolism. CARDIOVASCULAR: As indicated above. No prior history of myocardial infarction. GASTROINTESTINAL: As indicated above. GENITOURINARY: No dysuria or frequency. MUSCULOSKELETAL: No localized muscle aches or joint pain. SKIN: No new skin rashes. NEUROLOGIC: No headaches, diplopia or blurred vision. MEDICATIONS: List was reviewed. ALLERGIES: PENICILLIN. PHYSICAL EXAMINATION: VITAL SIGNS: Stable. O2 saturation was greater than 92%. LUNGS: Scattered rhonchi, no wheezes. CARDIOVASCULAR: Regular rate and rhythm with S1, S2, no S3. ABDOMEN: Soft, nontender, nondistended. EXTREMITIES: No clubbing, cyanosis or pitting edema. LABORATORY DATA: Reviewed. White count is elevated 24,000. She had a marked thrombocytosis 5410. Hemoglobin and hematocrit were noted. Electrolytes were noted. Troponin level was elevated. Triglycerides were elevated. TSH was high. Sodium was low. AST and ALT were elevated. IMPRESSION: 1. Mis-jt-dkyafbgj arrest, unclear if she had total cardiopulmonary arrest. 2. Abnormal CT chest revealing bilateral interstitial and alveolar type of infiltrates. 3. Acute hypoxemic respiratory failure. 4. Thrombocytosis. 5. Leukocytosis. 6. Elevated liver chemistries. 7. Elevated troponin. 8. History of abdominal distention. DISCUSSION: The patient presents with complex medical decision making. She had an [id number] possible cardiopulmonary arrest. The etiology is unclear at this time. She had 9 minutes of CPR, came through without any additional medication. She was never given any IV medications. Her CT reveals bilateral pulmonary infiltrates of unknown etiology. She has thrombocytosis and leukocytosis. For now, I recommend treatment for: 1. Possible pneumonia, gram-negative, gram-positive. 2. Rule out [id number], viral pneumonia. 3. Consider possibility of alveolar hemorrhage. 4. Workup for leukocytosis and thrombocytosis. Suspect the patient may require a bone marrow aspirate. 5. Follow Cardiology input. 6. The patient is being seen by GI Service, we will await their input. 7. Noticed D-dimer elevated. The patient did have a CT with no contrast given, difficult to rule out PE. We will diurese and possibly obtain CT chest with contrast in the a.m. if the creatinine improves. I do appreciate the privilege in sharing in the patient's care. INOCENCIO ORTA MD DR: PEACE/pauline JOB#: [id number] / [id number]
[2020-03-03] MEDS: ACETAMINOPHEN 500 MG TABLET PO PRN (17:52)
[2020-03-03] MEDS: PANTOPRAZOLE IV PUSH 40 MG VIAL. IVP SCH (17:53)
[2020-03-03] MEDS ORDERED: FUROSEMIDE 20 MG/2 ML VIAL. IVP ONE (18:00)
[2020-03-03 18:35] LABS: % SEGS 50 % (35-66)
[2020-03-03] MEDS ORDERED: ASPI325T8 PO (19:31)
[2020-03-03] MEDS ORDERED: PHEN26CR2 RC (19:31)
[2020-03-03] MEDS ORDERED: ACET325S PO (19:31)
[2020-03-03] MEDS ORDERED: POLY17PO29 PO (19:31)
[2020-03-03] MEDS ORDERED: OMEP20CA16 PO (19:31)
[2020-03-03] MEDS ORDERED: FURO40TA4 PO (19:31)
[2020-03-03] MEDS ORDERED: BACL10TA PO (19:31)
[2020-03-03] MEDS ORDERED: MAGN1TAB PO (19:31)
--- NOTE | 2020-03-03 19:58 | RAD ---
CT HEAD WO CONTRAST History: Right-sided numbness, post arrest Comparison: None. Technique: Noncontrast CT imaging was performed of the head. Exposure: One or more of the following individualized dose reduction techniques were utilized for this examination: 1. Automated exposure control 2. Adjustment of the mA and/or kV according to patient size 3. Use of iterative reconstruction technique. Findings: There is some residual contrast from previous postcontrast CT chest and pelvis. No convincing acute intracranial hemorrhage is identified, limited evaluation for subtle subarachnoid hemorrhage. There is no midline shift. Roth-white differentiation of the major vascular territories is maintained. Ventricular size is within normal limits. There are nasoantral windows bilaterally. There is variable ethmoid air cell opacification with thickened perry likely due to chronic opacification. There are also thickened perry of the visualized maxillary sinuses greater on the right. Mastoid air cells are aerated. Impression: 1. Accurate evaluation for subtle subarachnoid hemorrhage is limited due to the presence of residual contrast, otherwise no convincing acute intracranial hemorrhage or other abnormality. Electronically signed by: Stuart Cleveland MD (03/03/2020 7:56 PM) [facility] HOSPITALJignesh
[2020-03-03 20:30] VITALS: BP 107/54
[2020-03-03] MEDS: ASPIRIN ENTERIC COATED 325 MG TABLET.DR. PO SCH (21:54)
--- NOTE | 2020-03-03 22:00 | NUR ---
pt moaning with pain, unable to get up to bsc, or use the bedpan. placed call to dr anderson requesting a yusuf. see orders. pt still moans, asker her to try alternative ideas such as imaging etc. pt doesnt states she is in pain . lcrn
[2020-03-03 23:00] VITALS: BP 128/61
[2020-03-04] VITALS (7 sets, daily range): BP systolic 104–199; BP diastolic 48–77
[2020-03-04] MEDS: fentaNYL PF VIAL 100 MCG/2 ML VIAL IVP PRN ×6 (00:46→18:39)
[2020-03-04] MEDS: ACETAMINOPHEN 500 MG TABLET PO PRN (03:11)
[2020-03-04 05:27] LABS: BILIRUBIN,URINE NEGATIVE (NEG); CLARITY,URINE CLEAR; COLOR,URINE YELLOW; NITRITE,URINE NEGATIVE (NEG); PROTEIN,URINE 100 mg/dL (NEG-TRACE); UROBILINOGEN,URINE 0.2 mg/dL (0.2 mg/dL)
[2020-03-04 05:41] LABS: BACTERIA,URINE 0 /HPF (0-FEW); SQUAMOUS EPITHELIAL CELL,UR OCC /LPF; WBC,URINE OCC /HPF (0-4)
[2020-03-04 05:42] LABS: AMORPHOUS SEDIMENT,UR PRESENT /HPF
[2020-03-04 05:51] LABS: BASO # 0.5 x10^3/uL (0.0-0.2); BASO % 2 % (0-3); EOS # 0.4 x10^3/uL (0.0-0.7); EOS % 2 % (0-3); HEMATOCRIT 30.1 % (36.0-47.0); HEMOGLOBIN 10.1 g/dL (12.0-15.5); LYMPH # 0.8 x10^3/uL (1.0-4.8); LYMPH % 4 % (24-48); MEAN CORPUSCULAR HEMOGLOBIN 30 pg (25-35); MEAN CORPUSCULAR HGB CONC 34 g/dL (31-37); MEAN CORPUSCULAR VOLUME 90 fL (79-100); MONO # 2.2 x10^3/uL (0.0-1.1); MONO % 11 % (0-9); NEUT # 17.1 x10^3/uL (1.8-7.7); NEUT % 82 % (31-73); RED BLOOD COUNT 3.35 x10^6/uL (3.50-5.40); RED CELL DISTRIBUTION WIDTH 17.5 % (11.5-14.5); WHITE BLOOD COUNT 20.9 x10^3/uL (4.0-11.0)
[2020-03-04 06:00] LABS: PROTHROMBIN TIME PATIENT 16.5 SEC (11.7-14.0)
[2020-03-04 06:05] LABS: PLATELET COUNT 4860 x10^3/uL (140-400)
[2020-03-04 06:18] LABS: D-DIMER 3.74 ug/mlFEU (0.00-0.50)
[2020-03-04 06:28] LABS: ALBUMIN 3.3 g/dL (3.4-5.0); ALBUMIN/GLOBULIN RATIO 1.3 (1.0-1.7); CALCIUM 9.6 mg/dL (8.5-10.1); CREATININE 1.2 mg/dL (0.6-1.0); GFR 42.3; POTASSIUM 5.8 mmol/L (3.5-5.1); TOTAL BILIRUBIN 0.3 mg/dL (0.2-1.0); TOTAL PROTEIN 5.9 g/dL (6.4-8.2)
[2020-03-04 07:31] LABS: PLATELET COUNT 5410 x10^3/uL (140-400)
[2020-03-04] MEDS ORDERED: fentaNYL PF VIAL 100 MCG/2 ML VIAL ONE (08:01)
[2020-03-04] MEDS: PANTOPRAZOLE IV PUSH 40 MG VIAL. IVP SCH (08:10)
[2020-03-04] MEDS: ASPIRIN ENTERIC COATED 325 MG TABLET.DR. PO SCH (08:10)
--- NOTE | 2020-03-04 08:42 | PDOC ---
PULMONARY PROGRESS NOTES Subjective Patient continues to be in pain, short of air is about this Vitals Vital Signs Date Time Temp Pulse Resp B/P (MAP) Pulse Ox O2 Delivery O2 Flow Rate FiO2 03/04/20 04:19 94 15.0 03/04/20 03:00 98.9 88 20 134/60 (84) 98.9 03/03/20 20:00 Non-Rebreather ROS: No Nausea, No Abdominal Pain, No Increase Cough General: Alert Lungs: Crackles Cardiovascular: S1, S2 Abdomen: Soft Neuro Exam: Alert Extremities: No Edema Skin: Warm Labs Laboratory Tests Test 03/03/20 11:55 03/03/20 18:00 03/03/20 21:15 03/04/20 04:20 White Blood Count 24.9 x10^3/uL (4.0-11.0) Red Blood Count 3.79 x10^6/uL (3.50-5.40) Hemoglobin 11.3 g/dL (12.0-15.5) Hematocrit 34.1 % (36.0-47.0) Mean Corpuscular Volume 90 fL (79-100) Mean Corpuscular Hemoglobin 30 pg (25-35) Mean Corpuscular Hemoglobin Concent 33 g/dL (31-37) Red Cell Distribution Width 17.4 % (11.5-14.5) Platelet Count 5410 x10^3/uL (140-400) Neutrophils (%) (Auto) 83 % (31-73) Lymphocytes (%) (Auto) 9 % (24-48) Monocytes (%) (Auto) 4 % (0-9) Eosinophils (%) (Auto) 4 % (0-3) Basophils (%) (Auto) 1 % (0-3) Neutrophils # (Auto) 20.6 x10^3/uL (1.8-7.7) Lymphocytes # (Auto) 2.3 x10^3/uL (1.0-4.8) Monocytes # (Auto) 0.9 x10^3/uL (0.0-1.1) Eosinophils # (Auto) 0.9 x10^3/uL (0.0-0.7) Basophils # (Auto) 0.2 x10^3/uL (0.0-0.2) Segmented Neutrophils % 50 % (35-66) Band Neutrophils % 23 % (0-9) Lymphocytes % 9 % (24-48) Monocytes % 5 % (0-10) Eosinophils % 3 % (0-5) Basophils % 3 % (0-3) Metamyelocytes % 6 % (0-0) Myelocytes % 1 % (0-0) Platelet Estimate Increased (ADEQUATE) Large Platelets Mod Giant Platelets Few Prothrombin Time 16.6 SEC (11.7-14.0) Prothromb Time International Ratio 1.4 (0.8-1.1) D-Dimer (Bonita) 5.50 ug/mlFEU (0.00-0.50) Sodium Level 134 mmol/L (136-145) Potassium Level 3.9 mmol/L (3.5-5.1) Chloride Level 99 mmol/L (98-107) Carbon Dioxide Level 28 mmol/L (21-32) Anion Gap 7 (6-14) Blood Urea Nitrogen 18 mg/dL (7-20) Creatinine 1.2 mg/dL (0.6-1.0) Estimated GFR (Cockcroft-Gault) 42.3 Glucose Level 130 mg/dL (70-99) Calcium Level 8.3 mg/dL (8.5-10.1) Magnesium Level 2.9 mg/dL (1.8-2.4) Total Bilirubin 0.3 mg/dL (0.2-1.0) Direct Bilirubin 0.1 mg/dL (0.0-0.2) Aspartate Amino Transf (AST/SGOT) 917 U/L (15-37) Alanine Aminotransferase (ALT/SGPT) 1067 U/L (14-59) Alkaline Phosphatase 75 U/L (46-116) Lactate Dehydrogenase 1512 U/L (81-234) Creatine Kinase 55 U/L (26-192) Troponin I Quantitative 0.153 ng/mL (0.000-0.055) GP-Fen-A-Type Natriuretic Peptide 490 pg/mL (0-449) Total Protein 6.0 g/dL (6.4-8.2) Albumin 3.5 g/dL (3.4-5.0) Triglycerides Level 149 mg/dL (0-150) Cholesterol Level 221 mg/dL (0-200) LDL Cholesterol, Calculated 156 mg/dL (0-100) VLDL Cholesterol, Calculated 30 mg/dL (0-40) Non-HDL Cholesterol Calculated 186 mg/dL (0-129) HDL Cholesterol 35 mg/dL (40-60) Cholesterol/HDL Ratio 6.3 Thyroid Stimulating Hormone (TSH) 6.540 uIU/mL (0.358-3.74) Fibrinogen 263 mg/dL (200-440) Lactic Acid Level 3.6 mmol/L (0.4-2.0) 2.6 mmol/L (0.4-2.0) Urine Collection Type Unknown Urine Color Yellow Urine Clarity Clear Urine pH 5.0 (<5.0-8.0) Urine Specific Trinidad >=1.030 (1.000-1.030) Urine Protein 100 mg/dL (NEG-TRACE) Urine Glucose (UA) Negative mg/dL (NEG) Urine Ketones (Stick) Negative mg/dL (NEG) Urine Blood Trace (NEG) Urine Nitrite Negative (NEG) Urine Bilirubin Negative (NEG) Urine Urobilinogen Dipstick 0.2 mg/dL (0.2 mg/dL) Urine Leukocyte Esterase Negative (NEG) Urine RBC 1-2 /HPF (0-2) Urine WBC Occ /HPF (0-4) Urine Squamous Epithelial Cells Occ /LPF Urine Amorphous Sediment Present /HPF Urine Bacteria 0 /HPF (0-FEW) Test 03/04/20 04:40 White Blood Count 20.9 x10^3/uL (4.0-11.0) Red Blood Count 3.35 x10^6/uL (3.50-5.40) Hemoglobin 10.1 g/dL (12.0-15.5) Hematocrit 30.1 % (36.0-47.0) Mean Corpuscular Volume 90 fL (79-100) Mean Corpuscular Hemoglobin 30 pg (25-35) Mean Corpuscular Hemoglobin Concent 34 g/dL (31-37) Red Cell Distribution Width 17.5 % (11.5-14.5) Platelet Count 4860 x10^3/uL (140-400) Neutrophils (%) (Auto) 82 % (31-73) Lymphocytes (%) (Auto) 4 % (24-48) Monocytes (%) (Auto) 11 % (0-9) Eosinophils (%) (Auto) 2 % (0-3) Basophils (%) (Auto) 2 % (0-3) Neutrophils # (Auto) 17.1 x10^3/uL (1.8-7.7) Lymphocytes # (Auto) 0.8 x10^3/uL (1.0-4.8) Monocytes # (Auto) 2.2 x10^3/uL (0.0-1.1) Eosinophils # (Auto) 0.4 x10^3/uL (0.0-0.7) Basophils # (Auto) 0.5 x10^3/uL (0.0-0.2) Prothrombin Time 16.5 SEC (11.7-14.0) Prothromb Time International Ratio 1.4 (0.8-1.1) D-Dimer (Bonita) 3.74 ug/mlFEU (0.00-0.50) Sodium Level 134 mmol/L (136-145) Potassium Level 5.8 mmol/L (3.5-5.1) Chloride Level 98 mmol/L (98-107) Carbon Dioxide Level 25 mmol/L (21-32) Anion Gap 11 (6-14) Blood Urea Nitrogen 21 mg/dL (7-20) Creatinine 1.2 mg/dL (0.6-1.0) Estimated GFR (Cockcroft-Gault) 42.3 BUN/Creatinine Ratio 18 (6-20) Glucose Level 121 mg/dL (70-99) Calcium Level 9.6 mg/dL (8.5-10.1) Total Bilirubin 0.3 mg/dL (0.2-1.0) Aspartate Amino Transf (AST/SGOT) 467 U/L (15-37) Alanine Aminotransferase (ALT/SGPT) 852 U/L (14-59) Alkaline Phosphatase 74 U/L (46-116) Total Protein 5.9 g/dL (6.4-8.2) Albumin 3.3 g/dL (3.4-5.0) Albumin/Globulin Ratio 1.3 (1.0-1.7) Laboratory Tests Test 03/03/20 11:55 03/03/20 18:00 03/03/20 21:15 03/04/20 04:20 White Blood Count 24.9 x10^3/uL (4.0-11.0) Red Blood Count 3.79 x10^6/uL (3.50-5.40) Hemoglobin 11.3 g/dL (12.0-15.5) Hematocrit 34.1 % (36.0-47.0) Mean Corpuscular Volume 90 fL (79-100) Mean Corpuscular Hemoglobin 30 pg (25-35) Mean Corpuscular Hemoglobin Concent 33 g/dL (31-37) Red Cell Distribution Width 17.4 % (11.5-14.5) Platelet Count 5410 x10^3/uL (140-400) Neutrophils (%) (Auto) 83 % (31-73) Lymphocytes (%) (Auto) 9 % (24-48) Monocytes (%) (Auto) 4 % (0-9) Eosinophils (%) (Auto) 4 % (0-3) Basophils (%) (Auto) 1 % (0-3) Neutrophils # (Auto) 20.6 x10^3/uL (1.8-7.7) Lymphocytes # (Auto) 2.3 x10^3/uL (1.0-4.8) Monocytes # (Auto) 0.9 x10^3/uL (0.0-1.1) Eosinophils # (Auto) 0.9 x10^3/uL (0.0-0.7) Basophils # (Auto) 0.2 x10^3/uL (0.0-0.2) Segmented Neutrophils % 50 % (35-66) Band Neutrophils % 23 % (0-9) Lymphocytes % 9 % (24-48) Monocytes % 5 % (0-10) Eosinophils % 3 % (0-5) Basophils % 3 % (0-3) Metamyelocytes % 6 % (0-0) Myelocytes % 1 % (0-0) Platelet Estimate Increased (ADEQUATE) Large Platelets Mod Giant Platelets Few Prothrombin Time 16.6 SEC (11.7-14.0) Prothromb Time International Ratio 1.4 (0.8-1.1) D-Dimer (Bonita) 5.50 ug/mlFEU (0.00-0.50) Sodium Level 134 mmol/L (136-145) Potassium Level 3.9 mmol/L (3.5-5.1) Chloride Level 99 mmol/L (98-107) Carbon Dioxide Level 28 mmol/L (21-32) Anion Gap 7 (6-14) Blood Urea Nitrogen 18 mg/dL (7-20) Creatinine 1.2 mg/dL (0.6-1.0) Estimated GFR (Cockcroft-Gault) 42.3 Glucose Level 130 mg/dL (70-99) Calcium Level 8.3 mg/dL (8.5-10.1) Magnesium Level 2.9 mg/dL (1.8-2.4) Total Bilirubin 0.3 mg/dL (0.2-1.0) Direct Bilirubin 0.1 mg/dL (0.0-0.2) Aspartate Amino Transf (AST/SGOT) 917 U/L (15-37) Alanine Aminotransferase (ALT/SGPT) 1067 U/L (14-59) Alkaline Phosphatase 75 U/L (46-116) Lactate Dehydrogenase 1512 U/L (81-234) Creatine Kinase 55 U/L (26-192) Troponin I Quantitative 0.153 ng/mL (0.000-0.055) GT-Rdo-Z-Type Natriuretic Peptide 490 pg/mL (0-449) Total Protein 6.0 g/dL (6.4-8.2) Albumin 3.5 g/dL (3.4-5.0) Triglycerides Level 149 mg/dL (0-150) Cholesterol Level 221 mg/dL (0-200) LDL Cholesterol, Calculated 156 mg/dL (0-100) VLDL Cholesterol, Calculated 30 mg/dL (0-40) Non-HDL Cholesterol Calculated 186 mg/dL (0-129) HDL Cholesterol 35 mg/dL (40-60) Cholesterol/HDL Ratio 6.3 Thyroid Stimulating Hormone (TSH) 6.540 uIU/mL (0.358-3.74) Fibrinogen 263 mg/dL (200-440) Lactic Acid Level 3.6 mmol/L (0.4-2.0) 2.6 mmol/L (0.4-2.0) Urine Collection Type Unknown Urine Color Yellow Urine Clarity Clear Urine pH 5.0 (<5.0-8.0) Urine Specific Trinidad >=1.030 (1.000-1.030) Urine Protein 100 mg/dL (NEG-TRACE) Urine Glucose (UA) Negative mg/dL (NEG) Urine Ketones (Stick) Negative mg/dL (NEG) Urine Blood Trace (NEG) Urine Nitrite Negative (NEG) Urine Bilirubin Negative (NEG) Urine Urobilinogen Dipstick 0.2 mg/dL (0.2 mg/dL) Urine Leukocyte Esterase Negative (NEG) Urine RBC 1-2 /HPF (0-2) Urine WBC Occ /HPF (0-4) Urine Squamous Epithelial Cells Occ /LPF Urine Amorphous Sediment Present /HPF Urine Bacteria 0 /HPF (0-FEW) Test 03/04/20 04:40 White Blood Count 20.9 x10^3/uL (4.0-11.0) Red Blood Count 3.35 x10^6/uL (3.50-5.40) Hemoglobin 10.1 g/dL (12.0-15.5) Hematocrit 30.1 % (36.0-47.0) Mean Corpuscular Volume 90 fL (79-100) Mean Corpuscular Hemoglobin 30 pg (25-35) Mean Corpuscular Hemoglobin Concent 34 g/dL (31-37) Red Cell Distribution Width 17.5 % (11.5-14.5) Platelet Count 4860 x10^3/uL (140-400) Neutrophils (%) (Auto) 82 % (31-73) Lymphocytes (%) (Auto) 4 % (24-48) Monocytes (%) (Auto) 11 % (0-9) Eosinophils (%) (Auto) 2 % (0-3) Basophils (%) (Auto) 2 % (0-3) Neutrophils # (Auto) 17.1 x10^3/uL (1.8-7.7) Lymphocytes # (Auto) 0.8 x10^3/uL (1.0-4.8) Monocytes # (Auto) 2.2 x10^3/uL (0.0-1.1) Eosinophils # (Auto) 0.4 x10^3/uL (0.0-0.7) Basophils # (Auto) 0.5 x10^3/uL (0.0-0.2) Prothrombin Time 16.5 SEC (11.7-14.0) Prothromb Time International Ratio 1.4 (0.8-1.1) D-Dimer (Bonita) 3.74 ug/mlFEU (0.00-0.50) Sodium Level 134 mmol/L (136-145) Potassium Level 5.8 mmol/L (3.5-5.1) Chloride Level 98 mmol/L (98-107) Carbon Dioxide Level 25 mmol/L (21-32) Anion Gap 11 (6-14) Blood Urea Nitrogen 21 mg/dL (7-20) Creatinine 1.2 mg/dL (0.6-1.0) Estimated GFR (Cockcroft-Gault) 42.3 BUN/Creatinine Ratio 18 (6-20) Glucose Level 121 mg/dL (70-99) Calcium Level 9.6 mg/dL (8.5-10.1) Total Bilirubin 0.3 mg/dL (0.2-1.0) Aspartate Amino Transf (AST/SGOT) 467 U/L (15-37) Alanine Aminotransferase (ALT/SGPT) 852 U/L (14-59) Alkaline Phosphatase 74 U/L (46-116) Total Protein 5.9 g/dL (6.4-8.2) Albumin 3.3 g/dL (3.4-5.0) Albumin/Globulin Ratio 1.3 (1.0-1.7) Medications Active Scripts Medications Dose Route/Sig Max Daily Dose Days Date Category Dose Instructions Atrovent Hfa (Ipratropium [place]) 12.9 Gm Hfa.aer.ad 2 Puff IH BID 03/03/20 Reported Lidocaine-Hc 3-1% Cream Kit (Hydrocortisone Ac/Lidocaine) 1 Each Kit 1 Each RC TID 03/03/20 Reported Tramadol Hcl 50 Mg Tablet 50 Mg PO Q4HRS PRN 03/03/20 Reported Systane 0.3-0.4% Eye Drops (Propylene Glycol/Peg 400) 15 Ml Drops 1 Drop EACHEYE QID 03/03/20 Reported Colace (Docusate Sodium) 100 Mg Capsule 200 Mg PO DAILY 03/03/20 Reported Ativan (Lorazepam) 0.5 Mg Tablet 0.5 Mg PO HS 03/03/20 Reported Lidocaine PATCH (Lidocaine) 1 Each Adh..patch 1 Each TP DAILY 03/03/20 Reported REMOVE AFTER 12 HOURS Multivitamins With Minerals (Multivitamin With Minerals) 1 Each Tablet 1 Tab PO DAILY 30 03/03/20 Reported Zyrtec (Cetirizine Hcl) 10 Mg Tablet 1 Tab PO DAILY 03/03/20 Reported Breo Ellipta 100-25 Mcg Inh (Fluticasone/Vilanterol) 1 Each Aer.pow.ba 1 Puff IH DAILY 03/03/20 Reported Dulcolax (Bisacodyl) 10 Mg Supp.rect 1 Supp RC DAILY 10 03/03/20 Reported Amlodipine Besylate 2.5 Mg Tablet 2.5 Mg PO DAILY 03/03/20 Reported Trazodone Hcl 100 Mg Tablet 1 Tab PO QHS 03/03/20 Reported Montelukast Sodium Tablet (Montelukast Sodium) 10 Mg Tablet 10 Mg PO HS 03/03/20 Reported Mylanta Maximum Strength Liq (Mag Hydrox/Aluminum Hyd/Simeth) 355 Ml Oral.susp 30 Ml PO PRN Q4HRS PRN 03/03/20 Reported Impression . IMPRESSION: 1. Mcg-dg-eoxtjqsp arrest, unclear if she had total cardiopulmonary arrest. 2. Abnormal CT chest revealing bilateral interstitial and alveolar type of infiltrates. 3. Acute hypoxemic respiratory failure. 4. Thrombocytosis. 5. Leukocytosis. 6. Elevated liver chemistries. 7. Elevated troponin. 8. History of abdominal distention. Plan . 03/04, follow medical oncology input Patient in severe pain discussed with RN we will start fentanyl patch at 50 mcg SARS-CoV-2 pending Follow cardiology input GI following Clinical suspicion for PE is low, unable to perform CT angiogram secondary to renal insufficiency INOCENCIO ORTA MD Mar 04, 2020 08:42
[2020-03-04] MEDS ORDERED: FUROSEMIDE 40 MG/4 ML VIAL. IVP ONE (10:15)
[2020-03-04] MEDS: IV NORMAL SALINE 1000ML BAG 1,000 ML IV SCH ×2 (10:22→18:28)
--- NOTE | 2020-03-04 10:48 | PDOC2 ---
CONSULT Date of Consult Date of Consult DATE: 03/04/20 TIME: 10:26 Reason for Consult Reason for Consult: Thrombocytosis and leucocytosis Referring Physician Referring Physician: Nicho Rome MD Identification/Chief Complaint Chief Complaint Thrombocytosis Problems: (1) Thrombocythemia Source Source: Chart review, Patient History of Present Illness Reason for Visit: Vanesa Guardado is an 89 year old female who has been admitted after presenting with a suspected out of hospital cardiac arrest. She recalls that she was receiv ing a CT scan when she lost consciousness. Per chart review, she received CPR for 9 minutes until EMS arrival. She was brought to [facility] ED and was admitted for further eval and manaegment. She reported shortness of breath in the ED. She received further evaluation with labs and CT CAP. Her CBC showed neyutrophilic leucotysosis and extreme thrombocytosis with a platelet count of 5410. (~5.[address] million[address] CT chest showed bilateral pulmonary infiltrates suggestive of PNA and she has been started on abx accordingly. Pulmonary consutlation has been sought and COVID 19 testing has been requested. We have been consulted for evaluation of thrombocytosis. The patient reports that she follows with Dr Miller for primary care and was recently told that her platelets were elevated. She was scheduled to be seen at [facility] next week. She denies a hx of thrombosis, stroke or CAD. She denies a family hx of blood disorders or blood cancer. She reports chest pain from chest compressions. She also notes abdominal pain and distension. Past Medical History Cardiovascular: CHF, HTN, Hyperlipidemia Pulmonary: Other (Hypoxia) GI: Constipation, Diverticulosis Heme/Onc: Anemia NOS Hepatobiliary: No pertinent hx Psych: No pertinent hx Musculoskeletal: Osteoarthritis Rheumatologic: No pertinent hx Infectious disease: No pertinent hx ENT: No pertinent hx Renal/: No pertinent hx Endocrine: No pertinent hx Dermatology: No pertinent hx Past Surgical History Past Surgical History: Total hip replacement (left) Family History Family History: Family History Unknown Social History No ALCOHOL: none Drugs: None Lives: Detention Current Problem List Problem List Problems Medical Problems: (1) Cardiac arrest Status: Acute (2) Thrombocythemia Status: Acute Current Medications Current Medications Current Medications Morphine Sulfate (Morphine Sulfate) 5 mg 1X ONCE IV Last administered on 03/03/20at 11:25; Start 03/03/20 at 11:00; Stop 03/03/20 at 11:23; Status DC Ondansetron HCl (Zofran) 4 mg 1X ONCE IVP Last administered on 03/03/20at 11:46; Start 03/03/20 at 11:15; Stop 03/03/20 at 11:23; Status DC Morphine Sulfate (Morphine Sulfate) 5 mg 1X ONCE IV Last administered on 03/03/20at 11:46; Start 03/03/20 at 11:45; Stop 03/03/20 at 11:46; Status DC Morphine Sulfate (Morphine Sulfate) 5 mg 1X ONCE IV Last administered on 03/03/20at 13:39; Start 03/03/20 at 13:30; Stop 03/03/20 at 13:31; Status DC Fentanyl Citrate (Fentanyl 2ml Vial) 25 mcg PRN Q2HR PRN IVP PAIN Last administered on 03/04/20at 06:09; Start 03/03/20 at 15:45; Stop 03/04/20 at 07:56; Status DC Tramadol HCl (Ultram) 50 mg PRN Q6HRS PRN PO PAIN Last administered on 03/04/20at 03:11; Start 03/03/20 at 16:00 Pantoprazole Sodium (PROTONIX VIAL for IV PUSH) 40 mg DAILYAC IVP Last administered on 03/04/20at 08:10; Start 03/03/20 at 16:30 Acetaminophen (Tylenol) 1,000 mg PRN Q6HRS PRN PO PAIN Last administered on 03/04/20at 03:11; Start 03/03/20 at 16:45 Ringer's Solution 1,000 ml @ 100 mls/hr Q10H IV Last administered on 03/03/20at 21:55; Start 03/03/20 at 17:15; Stop 03/04/20 at 10:17; Status DC Enoxaparin Sodium (Lovenox 40mg Syringe) 40 mg BID SQ ; Start 03/03/20 at 17:00; Stop 03/03/20 at 17:51; Status DC Levofloxacin/ Dextrose 100 ml @ 100 mls/hr Q24H IV Last administered on 03/03/20at 17:55; Start 03/03/20 at 18:00; Stop 03/03/20 at 18:59; Status DC Furosemide (Lasix) 20 mg 1X ONCE IVP Last administered on 03/03/20at 17:52; Start 03/03/20 at 18:00; Stop 03/03/20 at 18:01; Status DC Levofloxacin/ Dextrose 50 ml @ 50 mls/hr Q24H IV ; Start 03/04/20 at 18:00 Aspirin (Ecotrin) 325 mg BID PO Last administered on 03/04/20at 08:10; Start 03/03/20 at 21:00 Fentanyl Citrate (Fentanyl 2ml Vial) 50 mcg PRN Q1HR PRN IVP PAIN Last administered on 03/04/20at 10:08; Start 03/04/20 at 08:00 Fentanyl Citrate (Fentanyl 2ml Vial) 100 mcg STK-MED ONCE .ROUTE ; Start 03/04/20 at 08:01; Stop 03/04/20 at 08:02; Status DC Furosemide (Lasix) 40 mg 1X ONCE IVP Last administered on 03/04/20at 10:22; Start 03/04/20 at 10:15; Stop 03/04/20 at 10:20; Status DC Sodium Chloride 1,000 ml @ 75 mls/hr [id number] IV Last administered on 03/04/20at 10:22; Start 03/04/20 at 10:15 Active Scripts Active Reported Furosemide 40 Mg Tablet 40 Mg PO DAILY Aspirin 325 Mg Tablet 1 Tab PO DAILY Acetaminophen 325 Mg/10.15 Ml Solution 650 Mg PO BID Omeprazole 20 Mg Capsule.dr 20 Mg PO DAILY Gaviscon Es Tablet Chew (Magnesium Carbonate/Al Hydrox) 1 Each Tab.chew 1 Each PO PRN Q6HRS PRN Miralax (Polyethylene Glycol 3350) 17 Gm Powd.pack 1 Packet PO BID 2 Days dissolve in water Preparation H Cream (Phenyleph/Pramoxin/Glycr/W.pet) 26 Gm Cream..g. 26 Gm RC PRN PRN Baclofen 10 Mg Tablet 5 Mg PO BID Atrovent Hfa (Ipratropium [place]) 12.9 Gm Hfa.aer.ad 2 Puff IH BID Lidocaine-Hc 3-1% Cream Kit (Hydrocortisone Ac/Lidocaine) 1 Each Kit 1 Each RC TID Tramadol Hcl 50 Mg Tablet 50 Mg PO Q4HRS PRN Systane 0.3-0.4% Eye Drops (Propylene Glycol/Peg 400) 15 Ml Drops 1 Drop EACHEYE QID Colace (Docusate Sodium) 100 Mg Capsule 200 Mg PO DAILY Ativan (Lorazepam) 0.5 Mg Tablet 0.5 Mg PO HS Lidocaine PATCH (Lidocaine) 1 Each Adh..patch 1 Each TP DAILY REMOVE AFTER 12 HOURS Multivitamins With Minerals (Multivitamin With Minerals) 1 Each Tablet 1 Tab PO DAILY 30 Days Zyrtec (Cetirizine Hcl) 10 Mg Tablet 1 Tab PO DAILY Breo Ellipta 100-25 Mcg Inh (Fluticasone/Vilanterol) 1 Each Aer.pow.ba 1 Puff IH DAILY Dulcolax (Bisacodyl) 10 Mg Supp.rect 1 Supp RC DAILY 10 Days Amlodipine Besylate 2.5 Mg Tablet 2.5 Mg PO DAILY Trazodone Hcl 100 Mg Tablet 1 Tab PO QHS Montelukast Sodium Tablet (Montelukast Sodium) 10 Mg Tablet 10 Mg PO HS Mylanta Maximum Strength Liq (Mag Hydrox/Aluminum Hyd/Simeth) 355 Ml Oral.susp 30 Ml PO PRN Q4HRS PRN Allergies Allergies: Coded Allergies: Penicillins (Verified Allergy, Intermediate, rash, 03/03/20) ROS General: YES: Fatigue Hematological and Lymphatic: YES: Brusing; No: Bleeding Problems, Blood Clots, Night Sweats Respiratory: YES: Shortness of breath; No: Cough Cardiovascular: yes Chest Pain Gastrointestinal: Yes Abdominal Pain; No Nausea, No Vomiting, No Diarrhea, No Melena Physical Exam General: Alert, mild distress HEENT: Atraumatic Lungs: Normal air movement Heart: Regular rate Abdomen: Other (Distended, tender to palpation diffusely, no rebound) Extremities: No edema Skin: No rashes Neuro: Other (Unable to assess) Psych/Mental Status: Mental status NL Vitals VITALS Vital Signs Date Time Temp Pulse Resp B/P (MAP) Pulse Ox O2 Delivery O2 Flow Rate FiO2 03/04/20 07:00 97.9 87 20 161/75 (103) 93 Nasal Cannula 5.0 97.9 Labs Labs Laboratory Tests Test 03/03/20 11:55 03/03/20 18:00 03/03/20 21:15 03/04/20 04:20 White Blood Count 24.9 x10^3/uL (4.0-11.0) Red Blood Count 3.79 x10^6/uL (3.50-5.40) Hemoglobin 11.3 g/dL (12.0-15.5) Hematocrit 34.1 % (36.0-47.0) Mean Corpuscular Volume 90 fL (79-100) Mean Corpuscular Hemoglobin 30 pg (25-35) Mean Corpuscular Hemoglobin Concent 33 g/dL (31-37) Red Cell Distribution Width 17.4 % (11.5-14.5) Platelet Count 5410 x10^3/uL (140-400) Neutrophils (%) (Auto) 83 % (31-73) Lymphocytes (%) (Auto) 9 % (24-48) Monocytes (%) (Auto) 4 % (0-9) Eosinophils (%) (Auto) 4 % (0-3) Basophils (%) (Auto) 1 % (0-3) Neutrophils # (Auto) 20.6 x10^3/uL (1.8-7.7) Lymphocytes # (Auto) 2.3 x10^3/uL (1.0-4.8) Monocytes # (Auto) 0.9 x10^3/uL (0.0-1.1) Eosinophils # (Auto) 0.9 x10^3/uL (0.0-0.7) Basophils # (Auto) 0.2 x10^3/uL (0.0-0.2) Segmented Neutrophils % 50 % (35-66) Band Neutrophils % 23 % (0-9) Lymphocytes % 9 % (24-48) Monocytes % 5 % (0-10) Eosinophils % 3 % (0-5) Basophils % 3 % (0-3) Metamyelocytes % 6 % (0-0) Myelocytes % 1 % (0-0) Platelet Estimate Increased (ADEQUATE) Large Platelets Mod Giant Platelets Few Prothrombin Time 16.6 SEC (11.7-14.0) Prothromb Time International Ratio 1.4 (0.8-1.1) D-Dimer (Bonita) 5.50 ug/mlFEU (0.00-0.50) Sodium Level 134 mmol/L (136-145) Potassium Level 3.9 mmol/L (3.5-5.1) Chloride Level 99 mmol/L (98-107) Carbon Dioxide Level 28 mmol/L (21-32) Anion Gap 7 (6-14) Blood Urea Nitrogen 18 mg/dL (7-20) Creatinine 1.2 mg/dL (0.6-1.0) Estimated GFR (Cockcroft-Gault) 42.3 Glucose Level 130 mg/dL (70-99) Calcium Level 8.3 mg/dL (8.5-10.1) Magnesium Level 2.9 mg/dL (1.8-2.4) Total Bilirubin 0.3 mg/dL (0.2-1.0) Direct Bilirubin 0.1 mg/dL (0.0-0.2) Aspartate Amino Transf (AST/SGOT) 917 U/L (15-37) Alanine Aminotransferase (ALT/SGPT) 1067 U/L (14-59) Alkaline Phosphatase 75 U/L (46-116) Lactate Dehydrogenase 1512 U/L (81-234) Creatine Kinase 55 U/L (26-192) Troponin I Quantitative 0.153 ng/mL (0.000-0.055) FR-Qyp-N-Type Natriuretic Peptide 490 pg/mL (0-449) Total Protein 6.0 g/dL (6.4-8.2) Albumin 3.5 g/dL (3.4-5.0) Triglycerides Level 149 mg/dL (0-150) Cholesterol Level 221 mg/dL (0-200) LDL Cholesterol, Calculated 156 mg/dL (0-100) VLDL Cholesterol, Calculated 30 mg/dL (0-40) Non-HDL Cholesterol Calculated 186 mg/dL (0-129) HDL Cholesterol 35 mg/dL (40-60) Cholesterol/HDL Ratio 6.3 Thyroid Stimulating Hormone (TSH) 6.540 uIU/mL (0.358-3.74) Fibrinogen 263 mg/dL (200-440) Lactic Acid Level 3.6 mmol/L (0.4-2.0) 2.6 mmol/L (0.4-2.0) Urine Collection Type Unknown Urine Color Yellow Urine Clarity Clear Urine pH 5.0 (<5.0-8.0) Urine Specific [place] >=1.030 (1.000-1.030) Urine Protein 100 mg/dL (NEG-TRACE) Urine Glucose (UA) Negative mg/dL (NEG) Urine Ketones (Stick) Negative mg/dL (NEG) Urine Blood Trace (NEG) Urine Nitrite Negative (NEG) Urine Bilirubin Negative (NEG) Urine Urobilinogen Dipstick 0.2 mg/dL (0.2 mg/dL) Urine Leukocyte Esterase Negative (NEG) Urine RBC 1-2 /HPF (0-2) Urine WBC Occ /HPF (0-4) Urine Squamous Epithelial Cells Occ /LPF Urine Amorphous Sediment Present /HPF Urine Bacteria 0 /HPF (0-FEW) Test 03/04/20 04:40 White Blood Count 20.9 x10^3/uL (4.0-11.0) Red Blood Count 3.35 x10^6/uL (3.50-5.40) Hemoglobin 10.1 g/dL (12.0-15.5) Hematocrit 30.1 % (36.0-47.0) Mean Corpuscular Volume 90 fL (79-100) Mean Corpuscular Hemoglobin 30 pg (25-35) Mean Corpuscular Hemoglobin Concent 34 g/dL (31-37) Red Cell Distribution Width 17.5 % (11.5-14.5) Platelet Count 4860 x10^3/uL (140-400) Neutrophils (%) (Auto) 82 % (31-73) Lymphocytes (%) (Auto) 4 % (24-48) Monocytes (%) (Auto) 11 % (0-9) Eosinophils (%) (Auto) 2 % (0-3) Basophils (%) (Auto) 2 % (0-3) Neutrophils # (Auto) 17.1 x10^3/uL (1.8-7.7) Lymphocytes # (Auto) 0.8 x10^3/uL (1.0-4.8) Monocytes # (Auto) 2.2 x10^3/uL (0.0-1.1) Eosinophils # (Auto) 0.4 x10^3/uL (0.0-0.7) Basophils # (Auto) 0.5 x10^3/uL (0.0-0.2) Prothrombin Time 16.5 SEC (11.7-14.0) Prothromb Time International Ratio 1.4 (0.8-1.1) D-Dimer (Bonita) 3.74 ug/mlFEU (0.00-0.50) Sodium Level 134 mmol/L (136-145) Potassium Level 5.8 mmol/L (3.5-5.1) Chloride Level 98 mmol/L (98-107) Carbon Dioxide Level 25 mmol/L (21-32) Anion Gap 11 (6-14) Blood Urea Nitrogen 21 mg/dL (7-20) Creatinine 1.2 mg/dL (0.6-1.0) Estimated GFR (Cockcroft-Gault) 42.3 BUN/Creatinine Ratio 18 (6-20) Glucose Level 121 mg/dL (70-99) Calcium Level 9.6 mg/dL (8.5-10.1) Total Bilirubin 0.3 mg/dL (0.2-1.0) Aspartate Amino Transf (AST/SGOT) 467 U/L (15-37) Alanine Aminotransferase (ALT/SGPT) 852 U/L (14-59) Alkaline Phosphatase 74 U/L (46-116) Total Protein 5.9 g/dL (6.4-8.2) Albumin 3.3 g/dL (3.4-5.0) Albumin/Globulin Ratio 1.3 (1.0-1.7) Laboratory Tests Test 03/03/20 11:55 03/03/20 18:00 03/03/20 21:15 03/04/20 04:20 White Blood Count 24.9 x10^3/uL (4.0-11.0) Red Blood Count 3.79 x10^6/uL (3.50-5.40) Hemoglobin 11.3 g/dL (12.0-15.5) Hematocrit 34.1 % (36.0-47.0) Mean Corpuscular Volume 90 fL (79-100) Mean Corpuscular Hemoglobin 30 pg (25-35) Mean Corpuscular Hemoglobin Concent 33 g/dL (31-37) Red Cell Distribution Width 17.4 % (11.5-14.5) Platelet Count 5410 x10^3/uL (140-400) Neutrophils (%) (Auto) 83 % (31-73) Lymphocytes (%) (Auto) 9 % (24-48) Monocytes (%) (Auto) 4 % (0-9) Eosinophils (%) (Auto) 4 % (0-3) Basophils (%) (Auto) 1 % (0-3) Neutrophils # (Auto) 20.6 x10^3/uL (1.8-7.7) Lymphocytes # (Auto) 2.3 x10^3/uL (1.0-4.8) Monocytes # (Auto) 0.9 x10^3/uL (0.0-1.1) Eosinophils # (Auto) 0.9 x10^3/uL (0.0-0.7) Basophils # (Auto) 0.2 x10^3/uL (0.0-0.2) Segmented Neutrophils % 50 % (35-66) Band Neutrophils % 23 % (0-9) Lymphocytes % 9 % (24-48) Monocytes % 5 % (0-10) Eosinophils % 3 % (0-5) Basophils % 3 % (0-3) Metamyelocytes % 6 % (0-0) Myelocytes % 1 % (0-0) Platelet Estimate Increased (ADEQUATE) Large Platelets Mod Giant Platelets Few Prothrombin Time 16.6 SEC (11.7-14.0) Prothromb Time International Ratio 1.4 (0.8-1.1) D-Dimer (Bonita) 5.50 ug/mlFEU (0.00-0.50) Sodium Level 134 mmol/L (136-145) Potassium Level 3.9 mmol/L (3.5-5.1) Chloride Level 99 mmol/L (98-107) Carbon Dioxide Level 28 mmol/L (21-32) Anion Gap 7 (6-14) Blood Urea Nitrogen 18 mg/dL (7-20) Creatinine 1.2 mg/dL (0.6-1.0) Estimated GFR (Cockcroft-Gault) 42.3 Glucose Level 130 mg/dL (70-99) Calcium Level 8.3 mg/dL (8.5-10.1) Magnesium Level 2.9 mg/dL (1.8-2.4) Total Bilirubin 0.3 mg/dL (0.2-1.0) Direct Bilirubin 0.1 mg/dL (0.0-0.2) Aspartate Amino Transf (AST/SGOT) 917 U/L (15-37) Alanine Aminotransferase (ALT/SGPT) 1067 U/L (14-59) Alkaline Phosphatase 75 U/L (46-116) Lactate Dehydrogenase 1512 U/L (81-234) Creatine Kinase 55 U/L (26-192) Troponin I Quantitative 0.153 ng/mL (0.000-0.055) CM-Esz-W-Type Natriuretic Peptide 490 pg/mL (0-449) Total Protein 6.0 g/dL (6.4-8.2) Albumin 3.5 g/dL (3.4-5.0) Triglycerides Level 149 mg/dL (0-150) Cholesterol Level 221 mg/dL (0-200) LDL Cholesterol, Calculated 156 mg/dL (0-100) VLDL Cholesterol, Calculated 30 mg/dL (0-40) Non-HDL Cholesterol Calculated 186 mg/dL (0-129) HDL Cholesterol 35 mg/dL (40-60) Cholesterol/HDL Ratio 6.3 Thyroid Stimulating Hormone (TSH) 6.540 uIU/mL (0.358-3.74) Fibrinogen 263 mg/dL (200-440) Lactic Acid Level 3.6 mmol/L (0.4-2.0) 2.6 mmol/L (0.4-2.0) Urine Collection Type Unknown Urine Color Yellow Urine Clarity Clear Urine pH 5.0 (<5.0-8.0) Urine Specific [place] >=1.030 (1.000-1.030) Urine Protein 100 mg/dL (NEG-TRACE) Urine Glucose (UA) Negative mg/dL (NEG) Urine Ketones (Stick) Negative mg/dL (NEG) Urine Blood Trace (NEG) Urine Nitrite Negative (NEG) Urine Bilirubin Negative (NEG) Urine Urobilinogen Dipstick 0.2 mg/dL (0.2 mg/dL) Urine Leukocyte Esterase Negative (NEG) Urine RBC 1-2 /HPF (0-2) Urine WBC Occ /HPF (0-4) Urine Squamous Epithelial Cells Occ /LPF Urine Amorphous Sediment Present /HPF Urine Bacteria 0 /HPF (0-FEW) Test 03/04/20 04:40 White Blood Count 20.9 x10^3/uL (4.0-11.0) Red Blood Count 3.35 x10^6/uL (3.50-5.40) Hemoglobin 10.1 g/dL (12.0-15.5) Hematocrit 30.1 % (36.0-47.0) Mean Corpuscular Volume 90 fL (79-100) Mean Corpuscular Hemoglobin 30 pg (25-35) Mean Corpuscular Hemoglobin Concent 34 g/dL (31-37) Red Cell Distribution Width 17.5 % (11.5-14.5) Platelet Count 4860 x10^3/uL (140-400) Neutrophils (%) (Auto) 82 % (31-73) Lymphocytes (%) (Auto) 4 % (24-48) Monocytes (%) (Auto) 11 % (0-9) Eosinophils (%) (Auto) 2 % (0-3) Basophils (%) (Auto) 2 % (0-3) Neutrophils # (Auto) 17.1 x10^3/uL (1.8-7.7) Lymphocytes # (Auto) 0.8 x10^3/uL (1.0-4.8) Monocytes # (Auto) 2.2 x10^3/uL (0.0-1.1) Eosinophils # (Auto) 0.4 x10^3/uL (0.0-0.7) Basophils # (Auto) 0.5 x10^3/uL (0.0-0.2) Prothrombin Time 16.5 SEC (11.7-14.0) Prothromb Time International Ratio 1.4 (0.8-1.1) D-Dimer (Bonita) 3.74 ug/mlFEU (0.00-0.50) Sodium Level 134 mmol/L (136-145) Potassium Level 5.8 mmol/L (3.5-5.1) Chloride Level 98 mmol/L (98-107) Carbon Dioxide Level 25 mmol/L (21-32) Anion Gap 11 (6-14) Blood Urea Nitrogen 21 mg/dL (7-20) Creatinine 1.2 mg/dL (0.6-1.0) Estimated GFR (Cockcroft-Gault) 42.3 BUN/Creatinine Ratio 18 (6-20) Glucose Level 121 mg/dL (70-99) Calcium Level 9.6 mg/dL (8.5-10.1) Total Bilirubin 0.3 mg/dL (0.2-1.0) Aspartate Amino Transf (AST/SGOT) 467 U/L (15-37) Alanine Aminotransferase (ALT/SGPT) 852 U/L (14-59) Alkaline Phosphatase 74 U/L (46-116) Total Protein 5.9 g/dL (6.4-8.2) Albumin 3.3 g/dL (3.4-5.0) Albumin/Globulin Ratio 1.3 (1.0-1.7) Assessment/Plan Assessment/Plan Thrombocytosis Neutrophilic leucocytosis - DDx: ET vs CML vs MPN vs less likely reactive process given severe elevation in platelets - Check PT, APTT, VWF - Recommend peripheral smear, JAK2 w reflex to CALR and MPL, FISH for BCR-ABL - Bone marrow bx with NGS - Repeat CBC and will discuss cytoreduction with [facility] Pulmonary infitlrates: - Pulm following -COVID19 test pending LUPE CHEN MD Mar 04, 2020 10:48
[2020-03-04 11:22] LABS: CALCIUM 8.8 mg/dL (8.5-10.1); CREATININE 1.2 mg/dL (0.6-1.0); GFR 42.3; POTASSIUM 4.8 mmol/L (3.5-5.1)
[2020-03-04] MEDS: fentaNYL 50MCG/HR PATCH 1 PATCH PATCH.TD72 TD SCH (11:42)
[2020-03-04] MEDS: ENOXAPARIN 30 MG/0.3 ML SYRINGE. SQ SCH (11:42)
[2020-03-04] MEDS: LIDOCAINE (700MG/PATCH) PATCH. TD SCH (11:42)
--- NOTE | 2020-03-04 11:44 | PDOC ---
Subjective: Subjective: "Miserable." Wants the sheets on her bed adjusted, wants pillow between her legs. Abdomen hurts, no stool. Thinks colonoscopy done somewhere in [place]. Objective: Objective: CK normal, lactic 3.6 to 2.6 Vital Signs: Vital Signs Date Time Temp Pulse Resp B/P (MAP) Pulse Ox O2 Delivery O2 Flow Rate FiO2 03/04/20 07:00 97.9 87 20 161/75 (103) 93 Nasal Cannula 5.0 97.9 Labs: Laboratory Tests Test 03/03/20 11:55 03/03/20 18:00 03/03/20 21:15 03/04/20 04:20 White Blood Count 24.9 x10^3/uL Red Blood Count 3.79 x10^6/uL Hemoglobin 11.3 g/dL Hematocrit 34.1 % Mean Corpuscular Volume 90 fL Mean Corpuscular Hemoglobin 30 pg Mean Corpuscular Hemoglobin Concent 33 g/dL Red Cell Distribution Width 17.4 % Platelet Count 5410 x10^3/uL Neutrophils (%) (Auto) 83 % Lymphocytes (%) (Auto) 9 % Monocytes (%) (Auto) 4 % Eosinophils (%) (Auto) 4 % Basophils (%) (Auto) 1 % Neutrophils # (Auto) 20.6 x10^3/uL Lymphocytes # (Auto) 2.3 x10^3/uL Monocytes # (Auto) 0.9 x10^3/uL Eosinophils # (Auto) 0.9 x10^3/uL Basophils # (Auto) 0.2 x10^3/uL Segmented Neutrophils % 50 % Band Neutrophils % 23 % Lymphocytes % 9 % Monocytes % 5 % Eosinophils % 3 % Basophils % 3 % Metamyelocytes % 6 % Myelocytes % 1 % Platelet Estimate Increased Large Platelets Mod Giant Platelets Few Prothrombin Time 16.6 SEC Prothromb Time International Ratio 1.4 D-Dimer (Bonita) 5.50 ug/mlFEU Sodium Level 134 mmol/L Potassium Level 3.9 mmol/L Chloride Level 99 mmol/L Carbon Dioxide Level 28 mmol/L Anion Gap 7 Blood Urea Nitrogen 18 mg/dL Creatinine 1.2 mg/dL Estimated GFR (Cockcroft-Gault) 42.3 Glucose Level 130 mg/dL Calcium Level 8.3 mg/dL Magnesium Level 2.9 mg/dL Total Bilirubin 0.3 mg/dL Direct Bilirubin 0.1 mg/dL Aspartate Amino Transf (AST/SGOT) 917 U/L Alanine Aminotransferase (ALT/SGPT) 1067 U/L Alkaline Phosphatase 75 U/L Lactate Dehydrogenase 1512 U/L Creatine Kinase 55 U/L Troponin I Quantitative 0.153 ng/mL UX-Epe-L-Type Natriuretic Peptide 490 pg/mL Total Protein 6.0 g/dL Albumin 3.5 g/dL Triglycerides Level 149 mg/dL Cholesterol Level 221 mg/dL LDL Cholesterol, Calculated 156 mg/dL VLDL Cholesterol, Calculated 30 mg/dL Non-HDL Cholesterol Calculated 186 mg/dL HDL Cholesterol 35 mg/dL Cholesterol/HDL Ratio 6.3 Thyroid Stimulating Hormone (TSH) 6.540 uIU/mL Fibrinogen 263 mg/dL Lactic Acid Level 3.6 mmol/L 2.6 mmol/L Urine Collection Type Unknown Urine Color Yellow Urine Clarity Clear Urine pH 5.0 Urine Specific [place] >=1.030 Urine Protein 100 mg/dL Urine Glucose (UA) Negative mg/dL Urine Ketones (Stick) Negative mg/dL Urine Blood Trace Urine Nitrite Negative Urine Bilirubin Negative Urine Urobilinogen Dipstick 0.2 mg/dL Urine Leukocyte Esterase Negative Urine RBC 1-2 /HPF Urine WBC Occ /HPF Urine Squamous Epithelial Cells Occ /LPF Urine Amorphous Sediment Present /HPF Urine Bacteria 0 /HPF Test 03/04/20 04:40 03/04/20 10:45 White Blood Count 20.9 x10^3/uL Red Blood Count 3.35 x10^6/uL Hemoglobin 10.1 g/dL Hematocrit 30.1 % Mean Corpuscular Volume 90 fL Mean Corpuscular Hemoglobin 30 pg Mean Corpuscular Hemoglobin Concent 34 g/dL Red Cell Distribution Width 17.5 % Platelet Count 4860 x10^3/uL Neutrophils (%) (Auto) 82 % Lymphocytes (%) (Auto) 4 % Monocytes (%) (Auto) 11 % Eosinophils (%) (Auto) 2 % Basophils (%) (Auto) 2 % Neutrophils # (Auto) 17.1 x10^3/uL Lymphocytes # (Auto) 0.8 x10^3/uL Monocytes # (Auto) 2.2 x10^3/uL Eosinophils # (Auto) 0.4 x10^3/uL Basophils # (Auto) 0.5 x10^3/uL Prothrombin Time 16.5 SEC Prothromb Time International Ratio 1.4 D-Dimer (Bonita) 3.74 ug/mlFEU Sodium Level 134 mmol/L 136 mmol/L Potassium Level 5.8 mmol/L 4.8 mmol/L Chloride Level 98 mmol/L 99 mmol/L Carbon Dioxide Level 25 mmol/L 30 mmol/L Anion Gap 11 7 Blood Urea Nitrogen 21 mg/dL 19 mg/dL Creatinine 1.2 mg/dL 1.2 mg/dL Estimated GFR (Cockcroft-Gault) 42.3 42.3 BUN/Creatinine Ratio 18 Glucose Level 121 mg/dL 137 mg/dL Calcium Level 9.6 mg/dL 8.8 mg/dL Total Bilirubin 0.3 mg/dL Aspartate Amino Transf (AST/SGOT) 467 U/L Alanine Aminotransferase (ALT/SGPT) 852 U/L Alkaline Phosphatase 74 U/L Total Protein 5.9 g/dL Albumin 3.3 g/dL Albumin/Globulin Ratio 1.3 Imaging: Head CT 03/03 Impression: 1. Accurate evaluation for subtle subarachnoid hemorrhage is limited due to the presence of residual contrast, otherwise no convincing acute intracranial h emorrhage or other abnormality. PE: GEN: uncomfortable LUNGS: breathing mask HEART: RR ABD: distended, few if any BS, tender diffusely NEURO/PSYCH: A & O 3, moaning A/P: Resp failure, abnormal chest imaging, r/o COVID-19 Thrombocytosis - per heme/onc Transaminitis (better) Abdominal distention, pain, constipation - abnormal liver/spleen/colon on CT, US ordered 03/03 H/o RA -- Still quite uncomfortable. Await pending studies. Justicifation of Admission Dx: Justifications for Admission: Justification of Admission Dx: Yes MIGUEL ÁNGEL RODRIGUES Mar 04, 2020 11:44
[2020-03-04] MEDS ORDERED: hydrALAZINE 20 MG/ML VIAL. IVP PRN (12:30)
--- NOTE | 2020-03-04 12:40 | PDOC ---
LUZ BENITO BUSINESS DEVELOPMENT SALES EXECUTIVE 03/04/20 1240: CARDIO Progress Notes Date and Time Date of Service 03/04/2020 Time of Evaluation 1030 Subjective Subjective: No Chest Pain, Other (SOA) Vitals Vitals Vital Signs Date Time Temp Pulse Resp B/P (MAP) Pulse Ox O2 Delivery O2 Flow Rate FiO2 03/04/20 11:41 98.5 90 22 199/77 (117) 91 Nasal Cannula 5.0 98.5 Weight Weight [ ] Input and Output Intake and Output Intake and Output 03/04/20 07:00 Intake Total 200 ml Output Total 525 ml Balance -325 ml Intake Oral 200 ml Output Urine Total 525 ml # Voids 1 Laboratory Labs Laboratory Tests Test 03/03/20 17:30 03/03/20 18:00 03/03/20 21:15 03/04/20 04:20 Coronavirus (COVID-19)(PCR) Negative (NEGATIVE) Fibrinogen 263 mg/dL (200-440) Lactic Acid Level 3.6 mmol/L (0.4-2.0) 2.6 mmol/L (0.4-2.0) Urine Collection Type Unknown Urine Color Yellow Urine Clarity Clear Urine pH 5.0 (<5.0-8.0) Urine Specific [place] >=1.030 (1.000-1.030) Urine Protein 100 mg/dL (NEG-TRACE) Urine Glucose (UA) Negative mg/dL (NEG) Urine Ketones (Stick) Negative mg/dL (NEG) Urine Blood Trace (NEG) Urine Nitrite Negative (NEG) Urine Bilirubin Negative (NEG) Urine Urobilinogen Dipstick 0.2 mg/dL (0.2 mg/dL) Urine Leukocyte Esterase Negative (NEG) Urine RBC 1-2 /HPF (0-2) Urine WBC Occ /HPF (0-4) Urine Squamous Epithelial Cells Occ /LPF Urine Amorphous Sediment Present /HPF Urine Bacteria 0 /HPF (0-FEW) Test 03/04/20 04:40 03/04/20 10:45 White Blood Count 20.9 x10^3/uL (4.0-11.0) Red Blood Count 3.35 x10^6/uL (3.50-5.40) Hemoglobin 10.1 g/dL (12.0-15.5) Hematocrit 30.1 % (36.0-47.0) Mean Corpuscular Volume 90 fL (79-100) Mean Corpuscular Hemoglobin 30 pg (25-35) Mean Corpuscular Hemoglobin Concent 34 g/dL (31-37) Red Cell Distribution Width 17.5 % (11.5-14.5) Platelet Count 4860 x10^3/uL (140-400) Neutrophils (%) (Auto) 82 % (31-73) Lymphocytes (%) (Auto) 4 % (24-48) Monocytes (%) (Auto) 11 % (0-9) Eosinophils (%) (Auto) 2 % (0-3) Basophils (%) (Auto) 2 % (0-3) Neutrophils # (Auto) 17.1 x10^3/uL (1.8-7.7) Lymphocytes # (Auto) 0.8 x10^3/uL (1.0-4.8) Monocytes # (Auto) 2.2 x10^3/uL (0.0-1.1) Eosinophils # (Auto) 0.4 x10^3/uL (0.0-0.7) Basophils # (Auto) 0.5 x10^3/uL (0.0-0.2) Prothrombin Time 16.5 SEC (11.7-14.0) Prothromb Time International Ratio 1.4 (0.8-1.1) D-Dimer (Bonita) 3.74 ug/mlFEU (0.00-0.50) Sodium Level 134 mmol/L (136-145) 136 mmol/L (136-145) Potassium Level 5.8 mmol/L (3.5-5.1) 4.8 mmol/L (3.5-5.1) Chloride Level 98 mmol/L (98-107) 99 mmol/L (98-107) Carbon Dioxide Level 25 mmol/L (21-32) 30 mmol/L (21-32) Anion Gap 11 (6-14) 7 (6-14) Blood Urea Nitrogen 21 mg/dL (7-20) 19 mg/dL (7-20) Creatinine 1.2 mg/dL (0.6-1.0) 1.2 mg/dL (0.6-1.0) Estimated GFR (Cockcroft-Gault) 42.3 42.3 BUN/Creatinine Ratio 18 (6-20) Glucose Level 121 mg/dL (70-99) 137 mg/dL (70-99) Calcium Level 9.6 mg/dL (8.5-10.1) 8.8 mg/dL (8.5-10.1) Total Bilirubin 0.3 mg/dL (0.2-1.0) Aspartate Amino Transf (AST/SGOT) 467 U/L (15-37) Alanine Aminotransferase (ALT/SGPT) 852 U/L (14-59) Alkaline Phosphatase 74 U/L (46-116) Total Protein 5.9 g/dL (6.4-8.2) Albumin 3.3 g/dL (3.4-5.0) Albumin/Globulin Ratio 1.3 (1.0-1.7) Physical Exam Chest: Symmetric LUNGS: Other (coarse on NRB) Heart: RRR (SR), other (Chest wall tenderness) Abdomen: Other (distended) Extremities: Other (2+ bilateral LE pitting edema) Neurology: alert, follow commands Other Exams Discussed with RN, no pain but pt still SOA. Assessment Assessment 1. Acute respiratory failure with possible pneumonia: No rhythm ectopies so far. 2. Atypical Chest pain: likely from CPR, tender to touch 3. Severe Thrombocythemia: PLT 5410 down to 4850, this is recently noted as an outpt and she was referred to hematology but appears to have not been seen. ?malignancy/myelodysplasia? w/u per hematology 4. Severe transaminitis with abdominal pain and distended abd: per GI. LFTs decreasing 5. RBBB: S1Q3T3: no prior for comparison. No arrhythmias overnight 6. Morphine allergy? noted per chart review in the past. Received in ED no reaction so far. 7. Leukocytosis 8. Diastolic CHF 9. ROBSON with hyperkalemia: treatment given 10. HTN urgency 11. HLP 12. Coronary calcification per CT 13. Elevated troponin: 0.115, suspect demand mediated with multiple culprits above. Recommendations 1. Covid negative, TTE today 2. unclear if she truly had a cardiac arrest but noted with apnea. CPR performed 9 minutes, no medications nor established rhythm strips during the event. Follow pulmonary recommendation. Await TTE result 3. ABG, Mg. Titrate O2 4. Monitor rhythm supportive care. Lidoderm for her chest. Lasix PRN. x1 dose today. Hydralazine IV PRN. May restart home norvasc at higher dose if able to take PO. low dose ASA/statin 5. Will consider for ischemic workup as an outpt pending completion of hematology workup 6. DC LR, switch to NS at lower rate. Repeat BMP. Justicifation of Admission Dx: Justifications for Admission: Justification of Admission Dx: Yes JACQUE HU MD 03/04/20 1352: CARDIO Progress Notes Assessment Assessment Patient seen and examined. Agree with DAIRY EQUIPMENT REPAIRER's assessment and plan. Telemetry did not show any significant arrhythmias. Covid test negative. Continue management of ARF/pneumonia per pulm team Check 2D echo to assess LV systolic function. CP atypical, reproducible and most probably musculoskeletal from CPR We will consider ischemic evaluation as outpatient GI w/u for abd pain and transaminitis LUZ BENITO APRN Mar 04, 2020 12:40 JACQUE HU MD Mar 04, 2020 13:52
--- NOTE | 2020-03-04 12:46 | PDOC2 ---
CONSULT Date of Consult Date of Consult DATE: 03/04/20 TIME: 12:24 Reason for Consult Reason for Consult: Thrombocytosis and leukocytosis Referring Physician Referring Physician: Dr. Nicho Warren. Identification/Chief Complaint Chief Complaint Thrombocytosis. Source Source: Chart review, Patient History of Present Illness Reason for Visit: Vanesa Guardado is an 89 year old female who has been admitted after presenting wit h a suspected out of hospital cardiac arrest. She recalls that she was receiving a CT scan when she lost consciousness. Per chart review, she received CPR for 9 minutes until EMS arrival. She was brought to [place] ED and was admitted for further eval and management. She reported shortness of breath in the ED. She received further evaluation with labs and CT CAP. Her CBC showed neutrophilic leukocytosis and extreme thrombocytosis with a platelet count of 5410. (~5.[address]). CT chest showed bilateral pulmonary infiltrates suggestive of PNA and she has been started on abx accordingly. Pulmonary consutlation has been sought and COVID 19 testing has been requested. We have been consulted for evaluation of thrombocytosis. The patient reports that she follows with Dr Miller for primary care and was recently told that her platelets were elevated. She was scheduled to be seen at [facility] next week. She denies a hx of thrombosis, stroke or CAD. She denies a family hx of blood disorders or blood cancer. She reports chest pain from chest compressions. She also notes abdominal pain and distention. Past Medical History Cardiovascular: CHF, HTN, Hyperlipidemia Pulmonary: Other (Hypoxia) GI: Constipation, Diverticulosis Heme/Onc: Anemia NOS Hepatobiliary: No pertinent hx Psych: No pertinent hx Musculoskeletal: Osteoarthritis Rheumatologic: No pertinent hx Infectious disease: No pertinent hx ENT: No pertinent hx Renal/: No pertinent hx Endocrine: No pertinent hx Dermatology: No pertinent hx Past Surgical History Past Surgical History: Total hip replacement (left) Family History Family History: Family History Unknown Social History No ALCOHOL: none Drugs: None Lives: [facility] Current Problem List Problem List Problems Medical Problems: (1) Cardiac arrest Status: Acute (2) Thrombocythemia Status: Acute Current Medications Current Medications Current Medications Morphine Sulfate (Morphine Sulfate) 5 mg 1X ONCE IV Last administered on 03/03/20at 11:25; Start 03/03/20 at 11:00; Stop 03/03/20 at 11:23; Status DC Ondansetron HCl (Zofran) 4 mg 1X ONCE IVP Last administered on 03/03/20at 11:46; Start 03/03/20 at 11:15; Stop 03/03/20 at 11:23; Status DC Morphine Sulfate (Morphine Sulfate) 5 mg 1X ONCE IV Last administered on 03/03/20at 11:46; Start 03/03/20 at 11:45; Stop 03/03/20 at 11:46; Status DC Morphine Sulfate (Morphine Sulfate) 5 mg 1X ONCE IV Last administered on 03/03/20at 13:39; Start 03/03/20 at 13:30; Stop 03/03/20 at 13:31; Status DC Fentanyl Citrate (Fentanyl 2ml Vial) 25 mcg PRN Q2HR PRN IVP PAIN Last a dministered on 03/04/20at 06:09; Start 03/03/20 at 15:45; Stop 03/04/20 at 07:56; Status DC Tramadol HCl (Ultram) 50 mg PRN Q6HRS PRN PO MODERATE - SEVERE PAIN Last administered on 03/04/20at 03:11; Start 03/03/20 at 16:00 Pantoprazole Sodium (PROTONIX VIAL for IV PUSH) 40 mg DAILYAC IVP Last administered on 03/04/20at 08:10; Start 03/03/20 at 16:30 Acetaminophen (Tylenol) 1,000 mg PRN Q6HRS PRN PO MILD PAIN 1-3 Last administered on 03/04/20at 03:11; Start 03/03/20 at 16:45 Ringer's Solution 1,000 ml @ 100 mls/hr Q10H IV Last administered on 03/03/20at 21:55; Start 03/03/20 at 17:15; Stop 03/04/20 at 10:17; Status DC Enoxaparin Sodium (Lovenox 40mg Syringe) 40 mg BID SQ ; Start 03/03/20 at 17:00; Stop 03/03/20 at 17:51; Status DC Levofloxacin/ Dextrose 100 ml @ 100 mls/hr Q24H IV Last administered on 03/03/20at 17:55; Start 03/03/20 at 18:00; Stop 03/03/20 at 18:59; Status DC Furosemide (Lasix) 20 mg 1X ONCE IVP Last administered on 03/03/20at 17:52; Start 03/03/20 at 18:00; Stop 03/03/20 at 18:01; Status DC Levofloxacin/ Dextrose 50 ml @ 50 mls/hr Q24H IV ; Start 03/04/20 at 18:00 Aspirin (Ecotrin) 325 mg BID PO Last administered on 03/04/20at 08:10; Start 03/03/20 at 21:00; Stop 03/04/20 at 11:00; Status DC Fentanyl Citrate (Fentanyl 2ml Vial) 50 mcg PRN Q1HR PRN IVP PAIN Last administered on 03/04/20at 10:08; Start 03/04/20 at 08:00 Fentanyl Citrate (Fentanyl 2ml Vial) 100 mcg STK-MED ONCE .ROUTE ; Start 03/04/20 at 08:01; Stop 03/04/20 at 08:02; Status DC Furosemide (Lasix) 40 mg 1X ONCE IVP Last administered on 03/04/20at 10:22; Start 03/04/20 at 10:15; Stop 03/04/20 at 10:20; Status DC Sodium Chloride 1,000 ml @ 75 mls/hr [id number] IV Last administered on 03/04/20at 10:22; Start 03/04/20 at 10:15 Fentanyl (Duragesic 50mcg/ Hr Patch) 1 patch Q3DAYS TD Last administered on 03/04/20at 11:42; Start 03/04/20 at 11:00 Lidocaine (Lidoderm) 1 patch DAILY TD Last administered on 03/04/20at 11:42; Start 03/04/20 at 11:00 Miscellaneous (Lidoderm Patch Removal) 1 ea QHS ; Start 03/04/20 at 21:00 Enoxaparin Sodium (Lovenox 30mg Syringe) 30 mg Q24H SQ Last administered on 03/04/20at 11:42; Start 03/04/20 at 11:00 Hydralazine HCl (Apresoline Inj) 10 mg PRN Q4HRS PRN IVP ELEVATED BP, SEE COMMENTS; Start 03/04/20 at 12:30; Status UNV Active Scripts Active Reported Furosemide 40 Mg Tablet 40 Mg PO DAILY Aspirin 325 Mg Tablet 1 Tab PO DAILY Acetaminophen 325 Mg/10.15 Ml Solution 650 Mg PO BID Omeprazole 20 Mg Capsule.dr 20 Mg PO DAILY Gaviscon Es Tablet Chew (Magnesium Carbonate/Al Hydrox) 1 Each Tab.chew 1 Each PO PRN Q6HRS PRN Miralax (Polyethylene Glycol 3350) 17 Gm Powd.pack 1 Packet PO BID 2 Days dissolve in water Preparation H Cream (Phenyleph/Pramoxin/Glycr/W.pet) 26 Gm Cream..g. 26 Gm RC PRN PRN Baclofen 10 Mg Tablet 5 Mg PO BID Atrovent Hfa (Ipratropium [place]) 12.9 Gm Hfa.aer.ad 2 Puff IH BID Lidocaine-Hc 3-1% Cream Kit (Hydrocortisone Ac/Lidocaine) 1 Each Kit 1 Each RC TID Tramadol Hcl 50 Mg Tablet 50 Mg PO Q4HRS PRN Systane 0.3-0.4% Eye Drops (Propylene Glycol/Peg 400) 15 Ml Drops 1 Drop EACHEYE QID Colace (Docusate Sodium) 100 Mg Capsule 200 Mg PO DAILY Ativan (Lorazepam) 0.5 Mg Tablet 0.5 Mg PO HS Lidocaine PATCH (Lidocaine) 1 Each Adh..patch 1 Each TP DAILY REMOVE AFTER 12 HOURS Multivitamins With Minerals (Multivitamin With Minerals) 1 Each Tablet 1 Tab PO DAILY 30 Days Zyrtec (Cetirizine Hcl) 10 Mg Tablet 1 Tab PO DAILY Breo Ellipta 100-25 Mcg Inh (Fluticasone/Vilanterol) 1 Each Aer.pow.ba 1 Puff IH DAILY Dulcolax (Bisacodyl) 10 Mg Supp.rect 1 Supp RC DAILY 10 Days Amlodipine Besylate 2.5 Mg Tablet 2.5 Mg PO DAILY Trazodone Hcl 100 Mg Tablet 1 Tab PO QHS Montelukast Sodium Tablet (Montelukast Sodium) 10 Mg Tablet 10 Mg PO HS Mylanta Maximum Strength Liq (Mag Hydrox/Aluminum Hyd/Simeth) 355 Ml Oral.susp 30 Ml PO PRN Q4HRS PRN Allergies Allergies: Coded Allergies: Penicillins (Verified Allergy, Intermediate, rash, 03/03/20) Physical Exam General: Alert, mild distress HEENT: Atraumatic Lungs: Clear to auscultation Heart: Regular rate Abdomen: Other (Distended, tender to palpation diffusely, no rebound.) Extremities: No edema Skin: No rashes Neuro: Other (Unable to assess.) Vitals VITALS Vital Signs Date Time Temp Pulse Resp B/P (MAP) Pulse Ox O2 Delivery O2 Flow Rate FiO2 03/04/20 11:41 98.5 90 22 199/77 (117) 91 Nasal Cannula 5.0 98.5 Labs Labs Laboratory Tests Test 03/03/20 11:55 03/03/20 17:30 03/03/20 18:00 03/03/20 21:15 White Blood Count 24.9 x10^3/uL (4.0-11.0) Red Blood Count 3.79 x10^6/uL (3.50-5.40) Hemoglobin 11.3 g/dL (12.0-15.5) Hematocrit 34.1 % (36.0-47.0) Mean Corpuscular Volume 90 fL (79-100) Mean Corpuscular Hemoglobin 30 pg (25-35) Mean Corpuscular Hemoglobin Concent 33 g/dL (31-37) Red Cell Distribution Width 17.4 % (11.5-14.5) Platelet Count 5410 x10^3/uL (140-400) Neutrophils (%) (Auto) 83 % (31-73) Lymphocytes (%) (Auto) 9 % (24-48) Monocytes (%) (Auto) 4 % (0-9) Eosinophils (%) (Auto) 4 % (0-3) Basophils (%) (Auto) 1 % (0-3) Neutrophils # (Auto) 20.6 x10^3/uL (1.8-7.7) Lymphocytes # (Auto) 2.3 x10^3/uL (1.0-4.8) Monocytes # (Auto) 0.9 x10^3/uL (0.0-1.1) Eosinophils # (Auto) 0.9 x10^3/uL (0.0-0.7) Basophils # (Auto) 0.2 x10^3/uL (0.0-0.2) Segmented Neutrophils % 50 % (35-66) Band Neutrophils % 23 % (0-9) Lymphocytes % 9 % (24-48) Monocytes % 5 % (0-10) Eosinophils % 3 % (0-5) Basophils % 3 % (0-3) Metamyelocytes % 6 % (0-0) Myelocytes % 1 % (0-0) Platelet Estimate Increased (ADEQUATE) Large Platelets Mod Giant Platelets Few Prothrombin Time 16.6 SEC (11.7-14.0) Prothromb Time International Ratio 1.4 (0.8-1.1) D-Dimer (Bonita) 5.50 ug/mlFEU (0.00-0.50) Sodium Level 134 mmol/L (136-145) Potassium Level 3.9 mmol/L (3.5-5.1) Chloride Level 99 mmol/L (98-107) Carbon Dioxide Level 28 mmol/L (21-32) Anion Gap 7 (6-14) Blood Urea Nitrogen 18 mg/dL (7-20) Creatinine 1.2 mg/dL (0.6-1.0) Estimated GFR (Cockcroft-Gault) 42.3 Glucose Level 130 mg/dL (70-99) Calcium Level 8.3 mg/dL (8.5-10.1) Magnesium Level 2.9 mg/dL (1.8-2.4) Total Bilirubin 0.3 mg/dL (0.2-1.0) Direct Bilirubin 0.1 mg/dL (0.0-0.2) Aspartate Amino Transf (AST/SGOT) 917 U/L (15-37) Alanine Aminotransferase (ALT/SGPT) 1067 U/L (14-59) Alkaline Phosphatase 75 U/L (46-116) Lactate Dehydrogenase 1512 U/L (81-234) Creatine Kinase 55 U/L (26-192) Troponin I Quantitative 0.153 ng/mL (0.000-0.055) WT-Keu-J-Type Natriuretic Peptide 490 pg/mL (0-449) Total Protein 6.0 g/dL (6.4-8.2) Albumin 3.5 g/dL (3.4-5.0) Triglycerides Level 149 mg/dL (0-150) Cholesterol Level 221 mg/dL (0-200) LDL Cholesterol, Calculated 156 mg/dL (0-100) VLDL Cholesterol, Calculated 30 mg/dL (0-40) Non-HDL Cholesterol Calculated 186 mg/dL (0-129) HDL Cholesterol 35 mg/dL (40-60) Cholesterol/HDL Ratio 6.3 Thyroid Stimulating Hormone (TSH) 6.540 uIU/mL (0.358-3.74) Coronavirus (COVID-19)(PCR) Negative (NEGATIVE) Fibrinogen 263 mg/dL (200-440) Lactic Acid Level 3.6 mmol/L (0.4-2.0) 2.6 mmol/L (0.4-2.0) Test 03/04/20 04:20 03/04/20 04:40 03/04/20 10:45 Urine Collection Type Unknown Urine Color Yellow Urine Clarity Clear Urine pH 5.0 (<5.0-8.0) Urine Specific [place] >=1.030 (1.000-1.030) Urine Protein 100 mg/dL (NEG-TRACE) Urine Glucose (UA) Negative mg/dL (NEG) Urine Ketones (Stick) Negative mg/dL (NEG) Urine Blood Trace (NEG) Urine Nitrite Negative (NEG) Urine Bilirubin Negative (NEG) Urine Urobilinogen Dipstick 0.2 mg/dL (0.2 mg/dL) Urine Leukocyte Esterase Negative (NEG) Urine RBC 1-2 /HPF (0-2) Urine WBC Occ /HPF (0-4) Urine Squamous Epithelial Cells Occ /LPF Urine Amorphous Sediment Present /HPF Urine Bacteria 0 /HPF (0-FEW) White Blood Count 20.9 x10^3/uL (4.0-11.0) Red Blood Count 3.35 x10^6/uL (3.50-5.40) Hemoglobin 10.1 g/dL (12.0-15.5) Hematocrit 30.1 % (36.0-47.0) Mean Corpuscular Volume 90 fL (79-100) Mean Corpuscular Hemoglobin 30 pg (25-35) Mean Corpuscular Hemoglobin Concent 34 g/dL (31-37) Red Cell Distribution Width 17.5 % (11.5-14.5) Platelet Count 4860 x10^3/uL (140-400) Neutrophils (%) (Auto) 82 % (31-73) Lymphocytes (%) (Auto) 4 % (24-48) Monocytes (%) (Auto) 11 % (0-9) Eosinophils (%) (Auto) 2 % (0-3) Basophils (%) (Auto) 2 % (0-3) Neutrophils # (Auto) 17.1 x10^3/uL (1.8-7.7) Lymphocytes # (Auto) 0.8 x10^3/uL (1.0-4.8) Monocytes # (Auto) 2.2 x10^3/uL (0.0-1.1) Eosinophils # (Auto) 0.4 x10^3/uL (0.0-0.7) Basophils # (Auto) 0.5 x10^3/uL (0.0-0.2) Prothrombin Time 16.5 SEC (11.7-14.0) Prothromb Time International Ratio 1.4 (0.8-1.1) D-Dimer (Bonita) 3.74 ug/mlFEU (0.00-0.50) Sodium Level 134 mmol/L (136-145) 136 mmol/L (136-145) Potassium Level 5.8 mmol/L (3.5-5.1) 4.8 mmol/L (3.5-5.1) Chloride Level 98 mmol/L (98-107) 99 mmol/L (98-107) Carbon Dioxide Level 25 mmol/L (21-32) 30 mmol/L (21-32) Anion Gap 11 (6-14) 7 (6-14) Blood Urea Nitrogen 21 mg/dL (7-20) 19 mg/dL (7-20) Creatinine 1.2 mg/dL (0.6-1.0) 1.2 mg/dL (0.6-1.0) Estimated GFR (Cockcroft-Gault) 42.3 42.3 BUN/Creatinine Ratio 18 (6-20) Glucose Level 121 mg/dL (70-99) 137 mg/dL (70-99) Calcium Level 9.6 mg/dL (8.5-10.1) 8.8 mg/dL (8.5-10.1) Total Bilirubin 0.3 mg/dL (0.2-1.0) Aspartate Amino Transf (AST/SGOT) 467 U/L (15-37) Alanine Aminotransferase (ALT/SGPT) 852 U/L (14-59) Alkaline Phosphatase 74 U/L (46-116) Total Protein 5.9 g/dL (6.4-8.2) Albumin 3.3 g/dL (3.4-5.0) Albumin/Globulin Ratio 1.3 (1.0-1.7) Laboratory Tests Test 03/03/20 17:30 03/03/20 18:00 03/03/20 21:15 03/04/20 04:20 Coronavirus (COVID-19)(PCR) Negative (NEGATIVE) Fibrinogen 263 mg/dL (200-440) Lactic Acid Level 3.6 mmol/L (0.4-2.0) 2.6 mmol/L (0.4-2.0) Urine Collection Type Unknown Urine Color Yellow Urine Clarity Clear Urine pH 5.0 (<5.0-8.0) Urine Specific [place] >=1.030 (1.000-1.030) Urine Protein 100 mg/dL (NEG-TRACE) Urine Glucose (UA) Negative mg/dL (NEG) Urine Ketones (Stick) Negative mg/dL (NEG) Urine Blood Trace (NEG) Urine Nitrite Negative (NEG) Urine Bilirubin Negative (NEG) Urine Urobilinogen Dipstick 0.2 mg/dL (0.2 mg/dL) Urine Leukocyte Esterase Negative (NEG) Urine RBC 1-2 /HPF (0-2) Urine WBC Occ /HPF (0-4) Urine Squamous Epithelial Cells Occ /LPF Urine Amorphous Sediment Present /HPF Urine Bacteria 0 /HPF (0-FEW) Test 03/04/20 04:40 03/04/20 10:45 White Blood Count 20.9 x10^3/uL (4.0-11.0) Red Blood Count 3.35 x10^6/uL (3.50-5.40) Hemoglobin 10.1 g/dL (12.0-15.5) Hematocrit 30.1 % (36.0-47.0) Mean Corpuscular Volume 90 fL (79-100) Mean Corpuscular Hemoglobin 30 pg (25-35) Mean Corpuscular Hemoglobin Concent 34 g/dL (31-37) Red Cell Distribution Width 17.5 % (11.5-14.5) Platelet Count 4860 x10^3/uL (140-400) Neutrophils (%) (Auto) 82 % (31-73) Lymphocytes (%) (Auto) 4 % (24-48) Monocytes (%) (Auto) 11 % (0-9) Eosinophils (%) (Auto) 2 % (0-3) Basophils (%) (Auto) 2 % (0-3) Neutrophils # (Auto) 17.1 x10^3/uL (1.8-7.7) Lymphocytes # (Auto) 0.8 x10^3/uL (1.0-4.8) Monocytes # (Auto) 2.2 x10^3/uL (0.0-1.1) Eosinophils # (Auto) 0.4 x10^3/uL (0.0-0.7) Basophils # (Auto) 0.5 x10^3/uL (0.0-0.2) Prothrombin Time 16.5 SEC (11.7-14.0) Prothromb Time International Ratio 1.4 (0.8-1.1) D-Dimer (Bonita) 3.74 ug/mlFEU (0.00-0.50) Sodium Level 134 mmol/L (136-145) 136 mmol/L (136-145) Potassium Level 5.8 mmol/L (3.5-5.1) 4.8 mmol/L (3.5-5.1) Chloride Level 98 mmol/L (98-107) 99 mmol/L (98-107) Carbon Dioxide Level 25 mmol/L (21-32) 30 mmol/L (21-32) Anion Gap 11 (6-14) 7 (6-14) Blood Urea Nitrogen 21 mg/dL (7-20) 19 mg/dL (7-20) Creatinine 1.2 mg/dL (0.6-1.0) 1.2 mg/dL (0.6-1.0) Estimated GFR (Cockcroft-Gault) 42.3 42.3 BUN/Creatinine Ratio 18 (6-20) Glucose Level 121 mg/dL (70-99) 137 mg/dL (70-99) Calcium Level 9.6 mg/dL (8.5-10.1) 8.8 mg/dL (8.5-10.1) Total Bilirubin 0.3 mg/dL (0.2-1.0) Aspartate Amino Transf (AST/SGOT) 467 U/L (15-37) Alanine Aminotransferase (ALT/SGPT) 852 U/L (14-59) Alkaline Phosphatase 74 U/L (46-116) Total Protein 5.9 g/dL (6.4-8.2) Albumin 3.3 g/dL (3.4-5.0) Albumin/Globulin Ratio 1.3 (1.0-1.7) Assessment/Plan Assessment/Plan Thrombocytosis, platelets 5.4 million. Evidence of recent bleeding based on 03/03/2020 CT abdomen/pelvis. Patients with marked thrombocytosis usually have propensity for bleeding due to acquired VWF deficiency. Neutrophilic leukocytosis could be related to recent cardiac arrest.Alternatively, it could be manifestation of P. vera. DDx: ET vs CML vs MPN vs less likely reactive process given severe elevation in platelets. PLAN: 1. Check APTT, VWF. Follow CBC 1-2 x per day due to evidence of intra-abdominal bleeding. 2. Recommend peripheral smear, JAK2 w reflex to CALR and MPL, FISH for BCR-ABL. 3. Hydrea 500 mg bid. 4. Will follow. Thank you for the opportunity to see your patient. Please call with any questions. Jean Carlos Hutson MD. [phone]. YING HUTSON MD Mar 04, 2020 12:46
--- NOTE | 2020-03-04 12:58 | PDOC ---
[facility] [facility] PROGRESS NOTE Chief Complaint Chief Complaint See next progress note from 13:02 Vitals/I&O Vitals/I&O: Vital Signs Date Time Temp Pulse Resp B/P (MAP) Pulse Ox O2 Delivery O2 Flow Rate FiO2 03/04/20 11:41 98.5 90 22 199/77 (117) 91 Nasal Cannula 5.0 98.5 I & O 03/03/20 03/03/20 03/04/20 15:00 23:00 07:00 Intake Total 200 ml Output Total 125 ml 400 ml Balance 75 ml -400 ml Physical Exam General: Alert, mild distress Heart: Regular rate Lungs: Crackles Abdomen: Other (Distended, tender to palpation diffusely, no rebound.) Extremities: No edema Skin: No rashes Labs Labs: Laboratory Tests Test 03/03/20 17:30 03/03/20 18:00 03/03/20 21:15 03/04/20 04:20 Coronavirus (COVID-19)(PCR) Negative (NEGATIVE) Fibrinogen 263 mg/dL (200-440) Lactic Acid Level 3.6 mmol/L (0.4-2.0) 2.6 mmol/L (0.4-2.0) Urine Collection Type Unknown Urine Color Yellow Urine Clarity Clear Urine pH 5.0 (<5.0-8.0) Urine Specific [place] >=1.030 (1.000-1.030) Urine Protein 100 mg/dL (NEG-TRACE) Urine Glucose (UA) Negative mg/dL (NEG) Urine Ketones (Stick) Negative mg/dL (NEG) Urine Blood Trace (NEG) Urine Nitrite Negative (NEG) Urine Bilirubin Negative (NEG) Urine Urobilinogen Dipstick 0.2 mg/dL (0.2 mg/dL) Urine Leukocyte Esterase Negative (NEG) Urine RBC 1-2 /HPF (0-2) Urine WBC Occ /HPF (0-4) Urine Squamous Epithelial Cells Occ /LPF Urine Amorphous Sediment Present /HPF Urine Bacteria 0 /HPF (0-FEW) Test 03/04/20 04:40 03/04/20 10:45 White Blood Count 20.9 x10^3/uL (4.0-11.0) Red Blood Count 3.35 x10^6/uL (3.50-5.40) Hemoglobin 10.1 g/dL (12.0-15.5) Hematocrit 30.1 % (36.0-47.0) Mean Corpuscular Volume 90 fL (79-100) Mean Corpuscular Hemoglobin 30 pg (25-35) Mean Corpuscular Hemoglobin Concent 34 g/dL (31-37) Red Cell Distribution Width 17.5 % (11.5-14.5) Platelet Count 4860 x10^3/uL (140-400) Neutrophils (%) (Auto) 82 % (31-73) Lymphocytes (%) (Auto) 4 % (24-48) Monocytes (%) (Auto) 11 % (0-9) Eosinophils (%) (Auto) 2 % (0-3) Basophils (%) (Auto) 2 % (0-3) Neutrophils # (Auto) 17.1 x10^3/uL (1.8-7.7) Lymphocytes # (Auto) 0.8 x10^3/uL (1.0-4.8) Monocytes # (Auto) 2.2 x10^3/uL (0.0-1.1) Eosinophils # (Auto) 0.4 x10^3/uL (0.0-0.7) Basophils # (Auto) 0.5 x10^3/uL (0.0-0.2) Prothrombin Time 16.5 SEC (11.7-14.0) Prothromb Time International Ratio 1.4 (0.8-1.1) D-Dimer (Bonita) 3.74 ug/mlFEU (0.00-0.50) Sodium Level 134 mmol/L (136-145) 136 mmol/L (136-145) Potassium Level 5.8 mmol/L (3.5-5.1) 4.8 mmol/L (3.5-5.1) Chloride Level 98 mmol/L (98-107) 99 mmol/L (98-107) Carbon Dioxide Level 25 mmol/L (21-32) 30 mmol/L (21-32) Anion Gap 11 (6-14) 7 (6-14) Blood Urea Nitrogen 21 mg/dL (7-20) 19 mg/dL (7-20) Creatinine 1.2 mg/dL (0.6-1.0) 1.2 mg/dL (0.6-1.0) Estimated GFR (Cockcroft-Gault) 42.3 42.3 BUN/Creatinine Ratio 18 (6-20) Glucose Level 121 mg/dL (70-99) 137 mg/dL (70-99) Calcium Level 9.6 mg/dL (8.5-10.1) 8.8 mg/dL (8.5-10.1) Total Bilirubin 0.3 mg/dL (0.2-1.0) Aspartate Amino Transf (AST/SGOT) 467 U/L (15-37) Alanine Aminotransferase (ALT/SGPT) 852 U/L (14-59) Alkaline Phosphatase 74 U/L (46-116) Total Protein 5.9 g/dL (6.4-8.2) Albumin 3.3 g/dL (3.4-5.0) Albumin/Globulin Ratio 1.3 (1.0-1.7) Iron Level 31 ug/dL (50-170) Total Iron Binding Capacity 281 ug/dL (250-450) Iron Saturation 11 % (15-34) Assessment and Plan Assessmemt and Plan Problems Medical Problems: (1) Cardiac arrest Status: Acute (2) Thrombocythemia Status: Acute Comment Review of Relevant I have reviewed the following items juan (where applicable) has been applied. Medications: Current Medications Medications (Trade) Dose Ordered Sig/Leobardo Route PRN Reason Start Time Stop Time Status Last Admin Dose Admin Morphine Sulfate (Morphine Sulfate) 5 mg 1X ONCE IV 03/03/20 13:30 03/03/20 13:31 DC 03/03/20 13:39 Fentanyl Citrate (Fentanyl 2ml Vial) 25 mcg PRN Q2HR PRN IVP PAIN 03/03/20 15:45 03/04/20 07:56 DC 03/04/20 06:09 Tramadol HCl (Ultram) 50 mg PRN Q6HRS PRN PO MODERATE - SEVERE PAIN 03/03/20 16:00 03/04/20 03:11 Pantoprazole Sodium (PROTONIX VIAL for IV PUSH) 40 mg DAILYAC IVP 03/03/20 16:30 03/04/20 08:10 Acetaminophen (Tylenol) 1,000 mg PRN Q6HRS PRN PO MILD PAIN 1-3 03/03/20 16:45 03/04/20 03:11 Ringer's Solution 1,000 ml @ 100 mls/hr Q10H IV 03/03/20 17:15 03/04/20 10:17 DC 03/03/20 21:55 Levofloxacin/ Dextrose 100 ml @ 100 mls/hr Q24H IV 03/03/20 18:00 03/03/20 18:59 DC 03/03/20 17:55 Furosemide (Lasix) 20 mg 1X ONCE IVP 03/03/20 18:00 03/03/20 18:01 DC 03/03/20 17:52 Aspirin (Ecotrin) 325 mg BID PO 03/03/20 21:00 03/04/20 11:00 DC 03/04/20 08:10 Fentanyl Citrate (Fentanyl 2ml Vial) 50 mcg PRN Q1HR PRN IVP PAIN 03/04/20 08:00 03/04/20 10:08 Furosemide (Lasix) 40 mg 1X ONCE IVP 03/04/20 10:15 03/04/20 10:20 DC 03/04/20 10:22 Sodium Chloride 1,000 ml @ 75 mls/hr [id number] IV 03/04/20 10:15 03/04/20 10:22 Fentanyl (Duragesic 50mcg/ Hr Patch) 1 patch Q3DAYS TD 03/04/20 11:00 03/04/20 11:42 Lidocaine (Lidoderm) 1 patch DAILY TD 03/04/20 11:00 03/04/20 11:42 Enoxaparin Sodium (Lovenox 30mg Syringe) 30 mg Q24H SQ 03/04/20 11:00 03/04/20 11:42 Justicifation of Admission Dx: Justifications for Admission: Justification of Admission Dx: Yes DARLYN HUYNH III DO Mar 04, 2020 12:57
[2020-03-04] MEDS: ASPIRIN ENTERIC COATED 81 MG TABLET.DR. PO SCH (13:00)
--- NOTE | 2020-03-04 13:02 | PDOC ---
[facility] [facility] PROGRESS NOTE Chief Complaint Chief Complaint Recent cardiac arrest with resuscitation pulseless Apneic episode - s/p CPR with immediate return of spontaneous respiratory activity and pulse. conversant. 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 According to EMS patient was at the diagnostic center getting a CT scan of her abdomen and pelvis when she became apneic and lost a pulse. They did compressions for 9 minutes, no medications administered. EMS notes on arrival patient had a pulse and was breathing on her own and was able to talk. She is complaining of shortness of breath and abdominal and chest pain. History of Present Illness History of Present Illness 03/04/2020 Patient seen and examined Resting with no apparent distress Chart reviewed Discussed with RN Vitals/I&O Vitals/I&O: Vital Signs Date Time Temp Pulse Resp B/P (MAP) Pulse Ox O2 Delivery O2 Flow Rate FiO2 03/04/20 11:41 98.5 90 22 199/77 (117) 91 Nasal Cannula 5.0 98.5 I & O 03/03/20 03/03/20 03/04/20 15:00 23:00 07:00 Intake Total 200 ml Output Total 125 ml 400 ml Balance 75 ml -400 ml Physical Exam General: No acute distress Heart: Regular rate Lungs: Clear Abdomen: Normal bowel sounds, Other (Distended, tender to palpation diffusely, no rebound.) Extremities: No clubbing, No edema Skin: No rashes Labs Labs: Laboratory Tests Test 03/03/20 17:30 03/03/20 18:00 03/03/20 21:15 03/04/20 04:20 Coronavirus (COVID-19)(PCR) Negative (NEGATIVE) Fibrinogen 263 mg/dL (200-440) Lactic Acid Level 3.6 mmol/L (0.4-2.0) 2.6 mmol/L (0.4-2.0) Urine Collection Type Unknown Urine Color Yellow Urine Clarity Clear Urine pH 5.0 (<5.0-8.0) Urine Specific [place] >=1.030 (1.000-1.030) Urine Protein 100 mg/dL (NEG-TRACE) Urine Glucose (UA) Negative mg/dL (NEG) Urine Ketones (Stick) Negative mg/dL (NEG) Urine Blood Trace (NEG) Urine Nitrite Negative (NEG) Urine Bilirubin Negative (NEG) Urine Urobilinogen Dipstick 0.2 mg/dL (0.2 mg/dL) Urine Leukocyte Esterase Negative (NEG) Urine RBC 1-2 /HPF (0-2) Urine WBC Occ /HPF (0-4) Urine Squamous Epithelial Cells Occ /LPF Urine Amorphous Sediment Present /HPF Urine Bacteria 0 /HPF (0-FEW) Test 03/04/20 04:40 03/04/20 10:45 White Blood Count 20.9 x10^3/uL (4.0-11.0) Red Blood Count 3.35 x10^6/uL (3.50-5.40) Hemoglobin 10.1 g/dL (12.0-15.5) Hematocrit 30.1 % (36.0-47.0) Mean Corpuscular Volume 90 fL (79-100) Mean Corpuscular Hemoglobin 30 pg (25-35) Mean Corpuscular Hemoglobin Concent 34 g/dL (31-37) Red Cell Distribution Width 17.5 % (11.5-14.5) Platelet Count 4860 x10^3/uL (140-400) Neutrophils (%) (Auto) 82 % (31-73) Lymphocytes (%) (Auto) 4 % (24-48) Monocytes (%) (Auto) 11 % (0-9) Eosinophils (%) (Auto) 2 % (0-3) Basophils (%) (Auto) 2 % (0-3) Neutrophils # (Auto) 17.1 x10^3/uL (1.8-7.7) Lymphocytes # (Auto) 0.8 x10^3/uL (1.0-4.8) Monocytes # (Auto) 2.2 x10^3/uL (0.0-1.1) Eosinophils # (Auto) 0.4 x10^3/uL (0.0-0.7) Basophils # (Auto) 0.5 x10^3/uL (0.0-0.2) Prothrombin Time 16.5 SEC (11.7-14.0) Prothromb Time International Ratio 1.4 (0.8-1.1) D-Dimer (Bonita) 3.74 ug/mlFEU (0.00-0.50) Sodium Level 134 mmol/L (136-145) 136 mmol/L (136-145) Potassium Level 5.8 mmol/L (3.5-5.1) 4.8 mmol/L (3.5-5.1) Chloride Level 98 mmol/L (98-107) 99 mmol/L (98-107) Carbon Dioxide Level 25 mmol/L (21-32) 30 mmol/L (21-32) Anion Gap 11 (6-14) 7 (6-14) Blood Urea Nitrogen 21 mg/dL (7-20) 19 mg/dL (7-20) Creatinine 1.2 mg/dL (0.6-1.0) 1.2 mg/dL (0.6-1.0) Estimated GFR (Cockcroft-Gault) 42.3 42.3 BUN/Creatinine Ratio 18 (6-20) Glucose Level 121 mg/dL (70-99) 137 mg/dL (70-99) Calcium Level 9.6 mg/dL (8.5-10.1) 8.8 mg/dL (8.5-10.1) Total Bilirubin 0.3 mg/dL (0.2-1.0) Aspartate Amino Transf (AST/SGOT) 467 U/L (15-37) Alanine Aminotransferase (ALT/SGPT) 852 U/L (14-59) Alkaline Phosphatase 74 U/L (46-116) Total Protein 5.9 g/dL (6.4-8.2) Albumin 3.3 g/dL (3.4-5.0) Albumin/Globulin Ratio 1.3 (1.0-1.7) Iron Level 31 ug/dL (50-170) Total Iron Binding Capacity 281 ug/dL (250-450) Iron Saturation 11 % (15-34) Assessment and Plan Assessmemt and Plan Problems Medical Problems: (1) Cardiac arrest Status: Acute (2) Thrombocythemia Status: Acute Status post cardiac arrest with CPR with immediate return of spontaneous respiratory activity and pulse. conversant. No meds given during episode Acute on Chronic hypoxic respiratory failure - on chronic O2, now on 15 liters likely secondary to pulmonary contusions from CPR. Thrombocytosis - likely 2/2 malignancy, will consult hematology/oncology Transaminitis - with abnormalities in liver this could be shock liver, but more likely has an active hepatitis process less likely viral more likely from underlying malignancy Acute encephalopathy - likely 2/2 resuscitative efforts. Will monitor mental status, has had some right sided numbness recently. CT head when stable Liver mass Pulmonary infiltrates - likely pulmonary contusions Mediastinal lymphadenopathy - concerning for underling malignancy given her abnormal CT abdomen findings Elevated INR - no anticoagulants. Likely related to liver disease, shock liver vs infiltrative disease. Will monitor liver function RBBB - will find prior EKG Constipation - stool softeners Osteoporosis - s/p left hip fracture and replacement Hypertension - cont meds Allergic rhinitis - cont meds Insomnia - trazodone prn B12 deficiency - replace NACHO - on O2 Chronic combined systolic and diastolic congestive heart failure - no echo available, per SNF records - will watch fluid status closely Anemia of chronic disease Home meds Rule out COVID-19 Consult pulmonary Consult GI DVT prophylaxis Trend labs Appreciate subspecialist input DO NOT RESUSCITATE Long-term prognosis guarded Per hematology and oncology note please see below: Thrombocytosis, platelets 5.4 million. Evidence of recent bleeding based on 03/03/2020 CT abdomen/pelvis. Patients with marked thrombocytosis usually have propensity for bleeding due to acquired VWF deficiency. Neutrophilic leukocytosis could be related to recent cardiac arres t.Alternatively, it could be manifestation of P. vera. DDx: ET vs CML vs MPN vs less likely reactive process given severe elevation in platelets. PLAN: 1. Check APTT, VWF. Follow CBC 1-2 x per day due to evidence of intra-abdominal bleeding. 2. Recommend peripheral smear, JAK2 w reflex to CALR and MPL, FISH for BCR-ABL. 3. Hydrea 500 mg bid. Comment Review of Relevant I have reviewed the following items juan (where applicable) has been applied. Medications: Current Medications Medications (Trade) Dose Ordered Sig/Leobardo Route PRN Reason Start Time Stop Time Status Last Admin Dose Admin Morphine Sulfate (Morphine Sulfate) 5 mg 1X ONCE IV 03/03/20 13:30 03/03/20 13:31 DC 03/03/20 13:39 Fentanyl Citrate (Fentanyl 2ml Vial) 25 mcg PRN Q2HR PRN IVP PAIN 03/03/20 15:45 03/04/20 07:56 DC 03/04/20 06:09 Tramadol HCl (Ultram) 50 mg PRN Q6HRS PRN PO MODERATE - SEVERE PAIN 03/03/20 16:00 03/04/20 03:11 Pantoprazole Sodium (PROTONIX VIAL for IV PUSH) 40 mg DAILYAC IVP 03/03/20 16:30 03/04/20 08:10 Acetaminophen (Tylenol) 1,000 mg PRN Q6HRS PRN PO MILD PAIN 1-3 03/03/20 16:45 03/04/20 03:11 Ringer's Solution 1,000 ml @ 100 mls/hr Q10H IV 03/03/20 17:15 03/04/20 10:17 DC 03/03/20 21:55 Levofloxacin/ Dextrose 100 ml @ 100 mls/hr Q24H IV 03/03/20 18:00 03/03/20 18:59 DC 03/03/20 17:55 Furosemide (Lasix) 20 mg 1X ONCE IVP 03/03/20 18:00 03/03/20 18:01 DC 03/03/20 17:52 Aspirin (Ecotrin) 325 mg BID PO 03/03/20 21:00 03/04/20 11:00 DC 03/04/20 08:10 Fentanyl Citrate (Fentanyl 2ml Vial) 50 mcg PRN Q1HR PRN IVP PAIN 03/04/20 08:00 03/04/20 10:08 Furosemide (Lasix) 40 mg 1X ONCE IVP 03/04/20 10:15 03/04/20 10:20 DC 03/04/20 10:22 Sodium Chloride 1,000 ml @ 75 mls/hr [id number] IV 03/04/20 10:15 03/04/20 10:22 Fentanyl (Duragesic 50mcg/ Hr Patch) 1 patch Q3DAYS TD 03/04/20 11:00 03/04/20 11:42 Lidocaine (Lidoderm) 1 patch DAILY TD 03/04/20 11:00 03/04/20 11:42 Enoxaparin Sodium (Lovenox 30mg Syringe) 30 mg Q24H SQ 03/04/20 11:00 03/04/20 11:42 Justicifation of Admission Dx: Justifications for Admission: Justification of Admission Dx: Yes DARLYN HUYNH III DO Mar 04, 2020 13:02
--- NOTE | 2020-03-04 15:30 | NUR ---
Patient transferred to room 201 from 6th floor. Patient on 15L nonrebreather with 4L NC. Oxygen saturation at 88%. Patient moaning, breathing shallow, and complaining of 4/10 pain in chest. Fentanyl patch in place on left shoulder. Assessment done at this time. Call light within reach. Will continue to monitor.
--- NOTE | 2020-03-04 15:52 | CARD ---
MR#: [id number] Date of Study: 03/04/2020 Ordering Physician: LUZ BENITO, Referring Physician: LUZ BENITO Tech: Rosalie Munoz [facility] APPROVED REPORT EXAM: Two-dimensional and M-mode echocardiogram with Doppler and color Doppler. Other Information Quality : PoorTechnically LimitedHR: 98bpm Rhythm : NSRTechnically limited study due to body habitus. INDICATION Dyspnea 2D DIMENSIONS Left Atrium(2D)3.1 (1.6-4.0cm)IVSd1.4 (0.7-1.1cm) Aortic Root(2D)3.5 (2.0-3.7cm)LVDd3.7 (3.9-5.9cm) LVOT Diameter1.9 (1.8-2.4cm)PWd1.2 (0.7-1.1cm) LVDs2.3 (2.5-4.0cm)FS (%) 36.6 % SV39.0 mlLVEF(%)67.3 (>50%) Aortic Valve AoV Peak Drew.168.9cm/sAoV VTI31.5cm AO Peak GR.11.4mmHgLVOT Peak Drew.144.8cm/s AO Mean GR.5mmHgAVA (VMAX)2.54cm2 Tricuspid Valve TR P. [id number] Peak Gr.37mmHg LEFT VENTRICLE The left ventricle is normal size. There is borderline to mild concentric left ventricular hypertroph y. The left ventricular systolic function is normal and the ejection fraction is within normal range. Estimated ef 60-65%. There is normal LV segmental wall motion. Tissue Doppler imaging reveals modera te left ventricular diastolic dysfunction. RIGHT VENTRICLE The right ventricle is normal size. There is normal right ventricular wall thickness. The right ventr icular systolic function is normal. ATRIA The left atrium size is normal. The right atrium size is normal. The interatrial septum is intact wit h no evidence for an atrial septal defect or patent foramen ovale as noted on 2-D or Doppler imaging. AORTIC VALVE The aortic valve is normal in structure and function. Doppler and Color Flow revealed no significant aortic regurgitation. There is no significant aortic valvular stenosis. MITRAL VALVE The mitral valve is normal in structure and function. There is no evidence of mitral valve prolapse. There is no mitral valve stenosis. TRICUSPID VALVE The tricuspid valve is normal in structure and function. Doppler and Color Flow revealed trace tricus pid regurgitation. Estimated PAP 40-45 mmHg. There is no tricuspid valve prolapse or vegetation. PULMONIC VALVE Doppler and Color Flow revealed no pulmonic valvular regurgitation. There is no pulmonic valvular loly nosis. GREAT VESSELS The aortic root is normal in size. The IVC is normal in size and collapses >50% with inspiration. PERICARDIAL EFFUSION There is no evidence of significant pericardial effusion. Critical Notification Critical Value: No <Conclusion> The left ventricular systolic function is normal and the ejection fraction is within normal range. E stimated ef 60-65%. There is normal LV segmental wall motion. Signed by : Haseeb Joel, Electronically Approved : 03/04/2020 15:51:49
[2020-03-04] MEDS ORDERED: IPRATRPIUM/ALBUTEROL 0.5/2.5MG 3 ML NEBU. NEB SCH (18:15)
[2020-03-04] MEDS ORDERED: ALBUTEROL SULFATE 2.5 MG/3 ML NEBU. NEB PRN (18:30)
[2020-03-04] MEDS: IPRATRPIUM/ALBUTEROL 0.5/2.5MG 3 ML NEBU. NEB SCH (20:54)
[2020-03-04] MEDS: ATORVASTATIN CALCIUM 10 MG TABLET. PO SCH (21:00)
[2020-03-04] MEDS: PATCH REMOVAL. MC SCH (21:00)
[2020-03-04] MEDS: methylPREDNISolone SOD SUCC PF 125 MG/2 ML VIAL. IV SCH (21:35)
[2020-03-04] MEDS: KETOROLAC 15 MG/ML VIAL. IVP PRN (21:50)
[2020-03-05 02:46] VITALS: BP 120/72
[2020-03-05 06:57] VITALS: BP 146/57
[2020-03-05] MEDS: IPRATRPIUM/ALBUTEROL 0.5/2.5MG 3 ML NEBU. NEB SCH ×3 (07:38→19:30)
[2020-03-05] MEDS: ASPIRIN ENTERIC COATED 81 MG TABLET.DR. PO SCH (08:00)
[2020-03-05] MEDS: methylPREDNISolone SOD SUCC PF 125 MG/2 ML VIAL. IV SCH (08:27)
[2020-03-05] MEDS: LIDOCAINE (700MG/PATCH) PATCH. TD SCH (08:27)
[2020-03-05] MEDS: PANTOPRAZOLE IV PUSH 40 MG VIAL. IVP SCH (08:27)
[2020-03-05 10:11] VITALS: BP 145/48
--- NOTE | 2020-03-05 10:13 | PDOC ---
PULMONARY PROGRESS NOTES Subjective on bipap, weak, has sob Vitals Vital Signs Date Time Temp Pulse Resp B/P (MAP) Pulse Ox O2 Delivery O2 Flow Rate FiO2 03/05/20 08:00 Bi-pap 03/05/20 07:41 89 15.0 03/05/20 06:57 98.0 85 32 146/57 (86) 98.0 ROS: No Nausea, No Abdominal Pain, No Increase Cough General: Alert Lungs: Clear Cardiovascular: S1, S2 Abdomen: Soft Neuro Exam: Alert Extremities: No Edema Skin: Warm Labs Laboratory Tests Test 03/03/20 11:55 03/03/20 17:30 03/03/20 18:00 03/03/20 21:15 White Blood Count 24.9 x10^3/uL (4.0-11.0) Red Blood Count 3.79 x10^6/uL (3.50-5.40) Hemoglobin 11.3 g/dL (12.0-15.5) Hematocrit 34.1 % (36.0-47.0) Mean Corpuscular Volume 90 fL (79-100) Mean Corpuscular Hemoglobin 30 pg (25-35) Mean Corpuscular Hemoglobin Concent 33 g/dL (31-37) Red Cell Distribution Width 17.4 % (11.5-14.5) Platelet Count 5410 x10^3/uL (140-400) Neutrophils (%) (Auto) 83 % (31-73) Lymphocytes (%) (Auto) 9 % (24-48) Monocytes (%) (Auto) 4 % (0-9) Eosinophils (%) (Auto) 4 % (0-3) Basophils (%) (Auto) 1 % (0-3) Neutrophils # (Auto) 20.6 x10^3/uL (1.8-7.7) Lymphocytes # (Auto) 2.3 x10^3/uL (1.0-4.8) Monocytes # (Auto) 0.9 x10^3/uL (0.0-1.1) Eosinophils # (Auto) 0.9 x10^3/uL (0.0-0.7) Basophils # (Auto) 0.2 x10^3/uL (0.0-0.2) Segmented Neutrophils % 50 % (35-66) Band Neutrophils % 23 % (0-9) Lymphocytes % 9 % (24-48) Monocytes % 5 % (0-10) Eosinophils % 3 % (0-5) Basophils % 3 % (0-3) Metamyelocytes % 6 % (0-0) Myelocytes % 1 % (0-0) Platelet Estimate Increased (ADEQUATE) Large Platelets Mod Giant Platelets Few Prothrombin Time 16.6 SEC (11.7-14.0) Prothromb Time International Ratio 1.4 (0.8-1.1) D-Dimer (Bonita) 5.50 ug/mlFEU (0.00-0.50) Sodium Level 134 mmol/L (136-145) Potassium Level 3.9 mmol/L (3.5-5.1) Chloride Level 99 mmol/L (98-107) Carbon Dioxide Level 28 mmol/L (21-32) Anion Gap 7 (6-14) Blood Urea Nitrogen 18 mg/dL (7-20) Creatinine 1.2 mg/dL (0.6-1.0) Estimated GFR (Cockcroft-Gault) 42.3 Glucose Level 130 mg/dL (70-99) Calcium Level 8.3 mg/dL (8.5-10.1) Magnesium Level 2.9 mg/dL (1.8-2.4) Total Bilirubin 0.3 mg/dL (0.2-1.0) Direct Bilirubin 0.1 mg/dL (0.0-0.2) Aspartate Amino Transf (AST/SGOT) 917 U/L (15-37) Alanine Aminotransferase (ALT/SGPT) 1067 U/L (14-59) Alkaline Phosphatase 75 U/L (46-116) Lactate Dehydrogenase 1512 U/L (81-234) Creatine Kinase 55 U/L (26-192) Troponin I Quantitative 0.153 ng/mL (0.000-0.055) AM-Sgo-B-Type Natriuretic Peptide 490 pg/mL (0-449) Total Protein 6.0 g/dL (6.4-8.2) Albumin 3.5 g/dL (3.4-5.0) Triglycerides Level 149 mg/dL (0-150) Cholesterol Level 221 mg/dL (0-200) LDL Cholesterol, Calculated 156 mg/dL (0-100) VLDL Cholesterol, Calculated 30 mg/dL (0-40) Non-HDL Cholesterol Calculated 186 mg/dL (0-129) HDL Cholesterol 35 mg/dL (40-60) Cholesterol/HDL Ratio 6.3 Thyroid Stimulating Hormone (TSH) 6.540 uIU/mL (0.358-3.74) Coronavirus (COVID-19)(PCR) Negative (NEGATIVE) Fibrinogen 263 mg/dL (200-440) Lactic Acid Level 3.6 mmol/L (0.4-2.0) 2.6 mmol/L (0.4-2.0) Test 03/04/20 04:20 03/04/20 04:40 03/04/20 10:45 Urine Collection Type Unknown Urine Color Yellow Urine Clarity Clear Urine pH 5.0 (<5.0-8.0) Urine Specific [place] >=1.030 (1.000-1.030) Urine Protein 100 mg/dL (NEG-TRACE) Urine Glucose (UA) Negative mg/dL (NEG) Urine Ketones (Stick) Negative mg/dL (NEG) Urine Blood Trace (NEG) Urine Nitrite Negative (NEG) Urine Bilirubin Negative (NEG) Urine Urobilinogen Dipstick 0.2 mg/dL (0.2 mg/dL) Urine Leukocyte Esterase Negative (NEG) Urine RBC 1-2 /HPF (0-2) Urine WBC Occ /HPF (0-4) Urine Squamous Epithelial Cells Occ /LPF Urine Amorphous Sediment Present /HPF Urine Bacteria 0 /HPF (0-FEW) White Blood Count 20.9 x10^3/uL (4.0-11.0) Red Blood Count 3.35 x10^6/uL (3.50-5.40) Hemoglobin 10.1 g/dL (12.0-15.5) Hematocrit 30.1 % (36.0-47.0) Mean Corpuscular Volume 90 fL (79-100) Mean Corpuscular Hemoglobin 30 pg (25-35) Mean Corpuscular Hemoglobin Concent 34 g/dL (31-37) Red Cell Distribution Width 17.5 % (11.5-14.5) Platelet Count 4860 x10^3/uL (140-400) Neutrophils (%) (Auto) 82 % (31-73) Lymphocytes (%) (Auto) 4 % (24-48) Monocytes (%) (Auto) 11 % (0-9) Eosinophils (%) (Auto) 2 % (0-3) Basophils (%) (Auto) 2 % (0-3) Neutrophils # (Auto) 17.1 x10^3/uL (1.8-7.7) Lymphocytes # (Auto) 0.8 x10^3/uL (1.0-4.8) Monocytes # (Auto) 2.2 x10^3/uL (0.0-1.1) Eosinophils # (Auto) 0.4 x10^3/uL (0.0-0.7) Basophils # (Auto) 0.5 x10^3/uL (0.0-0.2) Prothrombin Time 16.5 SEC (11.7-14.0) Prothromb Time International Ratio 1.4 (0.8-1.1) D-Dimer (Bonita) 3.74 ug/mlFEU (0.00-0.50) Sodium Level 134 mmol/L (136-145) 136 mmol/L (136-145) Potassium Level 5.8 mmol/L (3.5-5.1) 4.8 mmol/L (3.5-5.1) Chloride Level 98 mmol/L (98-107) 99 mmol/L (98-107) Carbon Dioxide Level 25 mmol/L (21-32) 30 mmol/L (21-32) Anion Gap 11 (6-14) 7 (6-14) Blood Urea Nitrogen 21 mg/dL (7-20) 19 mg/dL (7-20) Creatinine 1.2 mg/dL (0.6-1.0) 1.2 mg/dL (0.6-1.0) Estimated GFR (Cockcroft-Gault) 42.3 42.3 BUN/Creatinine Ratio 18 (6-20) Glucose Level 121 mg/dL (70-99) 137 mg/dL (70-99) Calcium Level 9.6 mg/dL (8.5-10.1) 8.8 mg/dL (8.5-10.1) Total Bilirubin 0.3 mg/dL (0.2-1.0) Aspartate Amino Transf (AST/SGOT) 467 U/L (15-37) Alanine Aminotransferase (ALT/SGPT) 852 U/L (14-59) Alkaline Phosphatase 74 U/L (46-116) Total Protein 5.9 g/dL (6.4-8.2) Albumin 3.3 g/dL (3.4-5.0) Albumin/Globulin Ratio 1.3 (1.0-1.7) Iron Level 31 ug/dL (50-170) Total Iron Binding Capacity 281 ug/dL (250-450) Iron Saturation 11 % (15-34) Troponin I Quantitative 0.287 ng/mL (0.000-0.055) Laboratory Tests Test 03/04/20 10:45 Sodium Level 136 mmol/L (136-145) Potassium Level 4.8 mmol/L (3.5-5.1) Chloride Level 99 mmol/L (98-107) Carbon Dioxide Level 30 mmol/L (21-32) Anion Gap 7 (6-14) Blood Urea Nitrogen 19 mg/dL (7-20) Creatinine 1.2 mg/dL (0.6-1.0) Estimated GFR (Cockcroft-Gault) 42.3 Glucose Level 137 mg/dL (70-99) Calcium Level 8.8 mg/dL (8.5-10.1) Iron Level 31 ug/dL (50-170) Total Iron Binding Capacity 281 ug/dL (250-450) Iron Saturation 11 % (15-34) Troponin I Quantitative 0.287 ng/mL (0.000-0.055) Medications Active Scripts Medications Dose Route/Sig Max Daily Dose Days Date Category Dose Instructions Atrovent Hfa (Ipratropium [place]) 12.9 Gm Hfa.aer.ad 2 Puff IH BID 03/03/20 Reported Lidocaine-Hc 3-1% Cream Kit (Hydrocortisone Ac/Lidocaine) 1 Each Kit 1 Each RC TID 03/03/20 Reported Tramadol Hcl 50 Mg Tablet 50 Mg PO Q4HRS PRN 03/03/20 Reported Systane 0.3-0.4% Eye Drops (Propylene Glycol/Peg 400) 15 Ml Drops 1 Drop EACHEYE QID 03/03/20 Reported Colace (Docusate Sodium) 100 Mg Capsule 200 Mg PO DAILY 03/03/20 Reported Ativan (Lorazepam) 0.5 Mg Tablet 0.5 Mg PO HS 03/03/20 Reported Lidocaine PATCH (Lidocaine) 1 Each Adh..patch 1 Each TP DAILY 03/03/20 Reported REMOVE AFTER 12 HOURS Multivitamins With Minerals (Multivitamin With Minerals) 1 Each Tablet 1 Tab PO DAILY 30 03/03/20 Reported Zyrtec (Cetirizine Hcl) 10 Mg Tablet 1 Tab PO DAILY 03/03/20 Reported Breo Ellipta 100-25 Mcg Inh (Fluticasone/Vilanterol) 1 Each Aer.pow.ba 1 Puff IH DAILY 03/03/20 Reported Dulcolax (Bisacodyl) 10 Mg Supp.rect 1 Supp RC DAILY 10 03/03/20 Reported Amlodipine Besylate 2.5 Mg Tablet 2.5 Mg PO DAILY 03/03/20 Reported Trazodone Hcl 100 Mg Tablet 1 Tab PO QHS 03/03/20 Reported Montelukast Sodium Tablet (Montelukast Sodium) 10 Mg Tablet 10 Mg PO HS 03/03/20 Reported Mylanta Maximum Strength Liq (Mag Hydrox/Aluminum Hyd/Simeth) 355 Ml Oral.susp 30 Ml PO PRN Q4HRS PRN 03/03/20 Reported Impression . IMPRESSION: 1. [id number] arrest, unclear if she had total cardiopulmonary arrest. 2. Abnormal CT chest revealing bilateral interstitial and alveolar type of infiltrates. 3. Acute hypoxemic respiratory failure. 4. Thrombocytosis. 5. Leukocytosis. 6. Elevated liver chemistries. 7. Elevated troponin. 8. History of abdominal distention. Plan . cont bipap, setting reviewed follow medical oncology input fentanyl patch at 50 mcg for pain, avoid over sedation cont abx SARS-CoV-2 neg BD change solumedrol to 40 bid Follow cardiology input GI following Clinical suspicion for PE is low, unable to perform CT angiogram secondary to renal insufficiency discussed w KARLA Gallego MD Mar 05, 2020 10:13
[2020-03-05] MEDS: ENOXAPARIN 30 MG/0.3 ML SYRINGE. SQ SCH (11:47)
[2020-03-05] MEDS: IV NORMAL SALINE 1000ML BAG 1,000 ML IV SCH ×2 (12:55→17:28)
--- NOTE | 2020-03-05 13:02 | PDOC ---
PROGRESS NOTES Chief Complaint Chief Complaint A/P: pulseless Apneic episode - s/p CPR with immediate return of spontaneous respiratory activity and pulse. conversant. No meds given during episode Acute on Chronic hypoxic respiratory failure - on chronic O2, now on 15 liters likely secondary to pulmonary contusions from CPR. Will consult pulmonology for further recs. COVID-19 testing is negative Thrombocytosis - likely 2/2 malignancy, will consult hematology/oncology Transaminitis - with abnormalities in liver this could be shock liver, but more likely has an active hepatitis process less likely viral more likely from underlying malignancy Acute encephalopathy - likely 2/2 resuscitative efforts. Will monitor mental status, has had some right sided numbness recently. CT head when stable Liver mass - likely from malignancy, will consult GI, trend transaminases Pulmonary infiltrates - likely pulmonary contusions Mediastinal lymphadenopathy - concerning for underling malignancy given her abnormal CT abdomen findings Elevated INR - no anticoagulants. Likely related to liver disease, shock liver vs infiltrative disease. 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 According to EMS patient was at the diagnostic center getting a CT scan of her abdomen and pelvis when she became apneic and lost a pulse. They did compressions for 9 minutes, no medications administered. EMS notes on arrival patient had a pulse and was breathing on her own and was able to talk. She is complaining of shortness of breath and abdominal and chest pain. She tells me she is tired and a little out of sorts. Does note she has had some right-sided numbness that been intermittent recently and is not told the other physicians about this is a little concerned. She does note that prior to this episode she did not have any chest pain. She has been struggling with abdominal pain and swelling and that is the reason she was going for CT scan. She has had dysuria and constipation for the past month. Labs significant for WBC 24.9, hemoglobin 11.3, platelets 5410, INR 1.4, AST 917, ALT 1067, NA 134, K3.4, BUN 18, CR 1.2 Admitted for further care. 03/04: Seen by pulm, Hematology/oncology, cardiology Still hypoxic to 86% on facemask, back on BIPAP. Still with chest pain, slight cough, large abdomen. Vitals Vitals Vital Signs Date Time Temp Pulse Resp B/P (MAP) Pulse Ox O2 Delivery O2 Flow Rate FiO2 03/05/20 11:23 100 BiPAP/CPAP 03/05/20 10:11 98.6 84 32 145/48 (80) 98.6 03/05/20 07:41 15.0 Physical Exam General: No acute distress Heart: Regular rate Lungs: Clear Abdomen: Normal bowel sounds, Other (Distended, tender to palpation diffusely, no rebound.) Extremities: No clubbing, No edema Skin: No rashes Assessment and Plan Assessmemt and Plan Problems Medical Problems: (1) Cardiac arrest Status: Acute (2) Thrombocythemia Status: Acute Comment Review of Relevant I have reviewed the following items juan (where applicable) has been applied. Labs Laboratory Tests Test 03/03/20 17:30 03/03/20 18:00 03/03/20 21:15 03/04/20 04:20 Coronavirus (COVID-19)(PCR) Negative (NEGATIVE) Fibrinogen 263 mg/dL (200-440) Lactic Acid Level 3.6 mmol/L (0.4-2.0) 2.6 mmol/L (0.4-2.0) Urine Collection Type Unknown Urine Color Yellow Urine Clarity Clear Urine pH 5.0 (<5.0-8.0) Urine Specific [place] >=1.030 (1.000-1.030) Urine Protein 100 mg/dL (NEG-TRACE) Urine Glucose (UA) Negative mg/dL (NEG) Urine Ketones (Stick) Negative mg/dL (NEG) Urine Blood Trace (NEG) Urine Nitrite Negative (NEG) Urine Bilirubin Negative (NEG) Urine Urobilinogen Dipstick 0.2 mg/dL (0.2 mg/dL) Urine Leukocyte Esterase Negative (NEG) Urine RBC 1-2 /HPF (0-2) Urine WBC Occ /HPF (0-4) Urine Squamous Epithelial Cells Occ /LPF Urine Amorphous Sediment Present /HPF Urine Bacteria 0 /HPF (0-FEW) Test 03/04/20 04:40 03/04/20 10:45 White Blood Count 20.9 x10^3/uL (4.0-11.0) Red Blood Count 3.35 x10^6/uL (3.50-5.40) Hemoglobin 10.1 g/dL (12.0-15.5) Hematocrit 30.1 % (36.0-47.0) Mean Corpuscular Volume 90 fL (79-100) Mean Corpuscular Hemoglobin 30 pg (25-35) Mean Corpuscular Hemoglobin Concent 34 g/dL (31-37) Red Cell Distribution Width 17.5 % (11.5-14.5) Platelet Count 4860 x10^3/uL (140-400) Neutrophils (%) (Auto) 82 % (31-73) Lymphocytes (%) (Auto) 4 % (24-48) Monocytes (%) (Auto) 11 % (0-9) Eosinophils (%) (Auto) 2 % (0-3) Basophils (%) (Auto) 2 % (0-3) Neutrophils # (Auto) 17.1 x10^3/uL (1.8-7.7) Lymphocytes # (Auto) 0.8 x10^3/uL (1.0-4.8) Monocytes # (Auto) 2.2 x10^3/uL (0.0-1.1) Eosinophils # (Auto) 0.4 x10^3/uL (0.0-0.7) Basophils # (Auto) 0.5 x10^3/uL (0.0-0.2) Prothrombin Time 16.5 SEC (11.7-14.0) Prothromb Time International Ratio 1.4 (0.8-1.1) D-Dimer (Bonita) 3.74 ug/mlFEU (0.00-0.50) Sodium Level 134 mmol/L (136-145) 136 mmol/L (136-145) Potassium Level 5.8 mmol/L (3.5-5.1) 4.8 mmol/L (3.5-5.1) Chloride Level 98 mmol/L (98-107) 99 mmol/L (98-107) Carbon Dioxide Level 25 mmol/L (21-32) 30 mmol/L (21-32) Anion Gap 11 (6-14) 7 (6-14) Blood Urea Nitrogen 21 mg/dL (7-20) 19 mg/dL (7-20) Creatinine 1.2 mg/dL (0.6-1.0) 1.2 mg/dL (0.6-1.0) Estimated GFR (Cockcroft-Gault) 42.3 42.3 BUN/Creatinine Ratio 18 (6-20) Glucose Level 121 mg/dL (70-99) 137 mg/dL (70-99) Calcium Level 9.6 mg/dL (8.5-10.1) 8.8 mg/dL (8.5-10.1) Total Bilirubin 0.3 mg/dL (0.2-1.0) Aspartate Amino Transf (AST/SGOT) 467 U/L (15-37) Alanine Aminotransferase (ALT/SGPT) 852 U/L (14-59) Alkaline Phosphatase 74 U/L (46-116) Total Protein 5.9 g/dL (6.4-8.2) Albumin 3.3 g/dL (3.4-5.0) Albumin/Globulin Ratio 1.3 (1.0-1.7) Iron Level 31 ug/dL (50-170) Total Iron Binding Capacity 281 ug/dL (250-450) Iron Saturation 11 % (15-34) Troponin I Quantitative 0.287 ng/mL (0.000-0.055) Medications Current Medications Morphine Sulfate (Morphine Sulfate) 5 mg 1X ONCE IV Last administered on 03/03/20at 11:25; Start 03/03/20 at 11:00; Stop 03/03/20 at 11:23; Status DC Ondansetron HCl (Zofran) 4 mg 1X ONCE IVP Last administered on 03/03/20at 11:46; Start 03/03/20 at 11:15; Stop 03/03/20 at 11:23; Status DC Morphine Sulfate (Morphine Sulfate) 5 mg 1X ONCE IV Last administered on 03/03/20at 11:46; Start 03/03/20 at 11:45; Stop 03/03/20 at 11:46; Status DC Morphine Sulfate (Morphine Sulfate) 5 mg 1X ONCE IV Last administered on 03/03/20at 13:39; Start 03/03/20 at 13:30; Stop 03/03/20 at 13:31; Status DC Fentanyl Citrate (Fentanyl 2ml Vial) 25 mcg PRN Q2HR PRN IVP PAIN Last administered on 03/04/20at 06:09; Start 03/03/20 at 15:45; Stop 03/04/20 at 07:56; Status DC Tramadol HCl (Ultram) 50 mg PRN Q6HRS PRN PO MODERATE - SEVERE PAIN Last administered on 03/04/20at 03:11; Start 03/03/20 at 16:00 Pantoprazole Sodium (PROTONIX VIAL for IV PUSH) 40 mg DAILYAC IVP Last administered on 03/05/20at 08:27; Start 03/03/20 at 16:30 Acetaminophen (Tylenol) 1,000 mg PRN Q6HRS PRN PO MILD PAIN 1-3 Last administered on 03/04/20at 03:11; Start 03/03/20 at 16:45 Ringer's Solution 1,000 ml @ 100 mls/hr Q10H IV Last administered on 03/03/20at 21:55; Start 03/03/20 at 17:15; Stop 03/04/20 at 10:17; Status DC Enoxaparin Sodium (Lovenox 40mg Syringe) 40 mg BID SQ ; Start 03/03/20 at 17:00; Stop 03/03/20 at 17:51; Status DC Levofloxacin/ Dextrose 100 ml @ 100 mls/hr Q24H IV Last administered on 03/03/20at 17:55; Start 03/03/20 at 18:00; Stop 03/03/20 at 18:59; Status DC Furosemide (Lasix) 20 mg 1X ONCE IVP Last administered on 03/03/20at 17:52; Start 03/03/20 at 18:00; Stop 03/03/20 at 18:01; Status DC Levofloxacin/ Dextrose 50 ml @ 50 mls/hr Q24H IV Last administered on 03/04/20at 17:28; Start 03/04/20 at 18:00 Aspirin (Ecotrin) 325 mg BID PO Last administered on 03/04/20at 08:10; Start 03/03/20 at 21:00; Stop 03/04/20 at 11:00; Status DC Fentanyl Citrate (Fentanyl 2ml Vial) 50 mcg PRN Q1HR PRN IVP SEVERE PAIN 7-10 Last administered on 03/04/20at 18:39; Start 03/04/20 at 08:00 Fentanyl Citrate (Fentanyl 2ml Vial) 100 mcg STK-MED ONCE .ROUTE ; Start 03/04/20 at 08:01; Stop 03/04/20 at 08:02; Status DC Furosemide (Lasix) 40 mg 1X ONCE IVP Last administered on 03/04/20at 10:22; Start 03/04/20 at 10:15; Stop 03/04/20 at 10:20; Status DC Sodium Chloride 1,000 ml @ 75 mls/hr [id number] IV Last administered on 03/04/20at 18:28; Start 03/04/20 at 10:15 Fentanyl (Duragesic 50mcg/ Hr Patch) 1 patch Q3DAYS TD Last administered on 03/04/20at 11:42; Start 03/04/20 at 11:00 Lidocaine (Lidoderm) 1 patch DAILY TD Last administered on 03/05/20 08:27; Start 03/04/20 at 11:00 Miscellaneous (Lidoderm Patch Removal) 1 ea QHS MC Last administered on 03/04/20at 21:00; Start 03/04/20 at 21:00 Enoxaparin Sodium (Lovenox 30mg Syringe) 30 mg Q24H SQ Last administered on 03/05/20at 11:47; Start 03/04/20 at 11:00 Hydralazine HCl (Apresoline Inj) 10 mg PRN Q4HRS PRN IVP ELEVATED BP, SEE COMMENTS; Start 03/04/20 at 12:30 Aspirin (Ecotrin) 81 mg [id number] PO ; Start 03/04/20 at 13:00 Atorvastatin Calcium (Lipitor) 10 mg QHS PO ; Start 03/04/20 at 21:00 Ketorolac Tromethamine (Toradol 15mg Vial) 15 mg PRN Q8HRS PRN IVP MODERATE PAIN 4-6 Last administered on 03/04/20at 21:50; Start 03/04/20 at 18:15; Stop 03/09/20 at 18:14 Methylprednisolone Sodium Succinate (SOLU-Medrol 125MG VIAL) 125 mg BID IV Last administered on 03/05/20at 08:27; Start 03/04/20 at 21:00 Albuterol/ Ipratropium (Duoneb) 3 ml TID NEB Last administered on 03/05/20at 07:38; Start 03/04/20 at 21:00 Albuterol/ Ipratropium (Duoneb) 3 ml PRN Q2HRS NEB ; Start 03/04/20 at 18:15; Stop 03/04/20 at 18:27; Status DC Albuterol Sulfate (Ventolin Neb Soln) 2.5 mg PRN Q2HR PRN NEB SHORTNESS OF BREATH; Start 03/04/20 at 18:30 Lorazepam (Ativan Inj) 1 mg PRN Q6HRS PRN IVP ANXIETY / AGITATION Last administered on 03/05/20at 08:42; Start 03/05/20 at 02:45 Lactobacillus Rhamnosus (Culturelle) 1 cap BID PO ; Start 03/05/20 at 21:00; Status Cancel Active Scripts Active Reported Furosemide 40 Mg Tablet 40 Mg PO DAILY Aspirin 325 Mg Tablet 1 Tab PO DAILY Acetaminophen 325 Mg/10.15 Ml Solution 650 Mg PO BID Omeprazole 20 Mg Capsule.dr 20 Mg PO DAILY Gaviscon Es Tablet Chew (Magnesium Carbonate/Al Hydrox) 1 Each Tab.chew 1 Each PO PRN Q6HRS PRN Miralax (Polyethylene Glycol 3350) 17 Gm Powd.pack 1 Packet PO BID 2 Days dissolve in water Preparation H Cream (Phenyleph/Pramoxin/Glycr/W.pet) 26 Gm Cream..g. 26 Gm RC PRN PRN Baclofen 10 Mg Tablet 5 Mg PO BID Atrovent Hfa (Ipratropium [place]) 12.9 Gm Hfa.aer.ad 2 Puff IH BID Lidocaine-Hc 3-1% Cream Kit (Hydrocortisone Ac/Lidocaine) 1 Each Kit 1 Each RC TID Tramadol Hcl 50 Mg Tablet 50 Mg PO Q4HRS PRN Systane 0.3-0.4% Eye Drops (Propylene Glycol/Peg 400) 15 Ml Drops 1 Drop EACHEYE QID Colace (Docusate Sodium) 100 Mg Capsule 200 Mg PO DAILY Ativan (Lorazepam) 0.5 Mg Tablet 0.5 Mg PO HS Lidocaine PATCH (Lidocaine) 1 Each Adh..patch 1 Each TP DAILY REMOVE AFTER 12 HOURS Multivitamins With Minerals (Multivitamin With Minerals) 1 Each Tablet 1 Tab PO DAILY 30 Days Zyrtec (Cetirizine Hcl) 10 Mg Tablet 1 Tab PO DAILY Breo Ellipta 100-25 Mcg Inh (Fluticasone/Vilanterol) 1 Each Aer.pow.ba 1 Puff IH DAILY Dulcolax (Bisacodyl) 10 Mg Supp.rect 1 Supp RC DAILY 10 Days Amlodipine Besylate 2.5 Mg Tablet 2.5 Mg PO DAILY Trazodone Hcl 100 Mg Tablet 1 Tab PO QHS Montelukast Sodium Tablet (Montelukast Sodium) 10 Mg Tablet 10 Mg PO HS Mylanta Maximum Strength Liq (Mag Hydrox/Aluminum Hyd/Simeth) 355 Ml Oral.susp 30 Ml PO PRN Q4HRS PRN Vitals/I & O Vital Sign - Last 24 Hours 03/04/20 03/04/20 03/04/20 03/04/20 15:04 15:35 15:42 15:53 Temp 97.3 101.1 97.3 101.1 Pulse 98 99 Resp 19 44 40 40 B/P (MAP) 175/74 (107) 159/62 (94) Pulse Ox 87 87 88 88 O2 Delivery NonRebreather Mask NonRebreather Mask NonRebreather Mask NonRebreather Mask O2 Flow Rate 15.0 15.0 15.0 15.0 03/04/20 03/04/20 03/04/20 03/04/20 16:08 16:23 16:33 18:39 Temp 98.8 98.8 Resp 30 30 Pulse Ox 91 O2 Delivery Non-Rebreather NonRebreather Mask BiPAP/CPAP O2 Flow Rate 15.0 15.0 03/04/20 03/04/20 03/04/20 03/04/20 18:51 19:00 19:09 19:41 Temp 99.9 99.9 Pulse 95 Resp 32 20 B/P (MAP) 113/49 (70) Pulse Ox 92 95 O2 Delivery BiPAP/CPAP NonRebreather Mask BiPAP/CPAP Bi-pap O2 Flow Rate 15.0 15.0 03/04/20 03/04/20 03/05/20/11/20 20:55 22:59 02:46 03:01 Temp 98.6 97.6 98.6 97.6 Pulse 89 86 Resp 33 32 B/P (MAP) 104/48 (66) 120/72 (88) Pulse Ox 93 100 95 100 O2 Delivery BiPAP/CPAP NonRebreather Mask NonRebreather Mask BiPAP/CPAP O2 Flow Rate 15.0 15.0 03/05/20 03/05/20 03/05/20 03/05/20 06:57 07:41 08:00 10:11 Temp 98.0 98.6 98.0 98.6 Pulse 85 84 Resp 32 32 B/P (MAP) 146/57 (86) 145/48 (80) Pulse Ox 100 89 99 O2 Delivery BiPAP/CPAP Venturi Mask Bi-pap BiPAP/CPAP O2 Flow Rate 15.0 03/05/20 11:23 Pulse Ox 100 O2 Delivery BiPAP/CPAP Intake and Output 03/04/20 03/04/20 03/05/20 15:00 23:00 07:00 Intake Total 0 ml 0 ml 0 ml Output Total 1600 ml 275 ml Balance 0 ml -1600 ml -275 ml Justicifation of Admission Dx: Justifications for Admission: Justification of Admission Dx: Yes SIMON ZHANG MD Mar 05, 2020 13:02
--- NOTE | 2020-03-05 13:17 | PDOC ---
G I PROGRESS NOTE Subjective On BIPAP; difficult to understand. Seems to indicate some abdominal pain. Physical Exam Lungs noisy. RRR Abdomen soft, protuberant. Tender? Review of Relevant I have reviewed the following items juan (where applicable) has been applied. Labs Laboratory Tests Test 03/03/20 17:30 03/03/20 18:00 03/03/20 21:15 03/04/20 04:20 Coronavirus (COVID-19)(PCR) Negative (NEGATIVE) Fibrinogen 263 mg/dL (200-440) Lactic Acid Level 3.6 mmol/L (0.4-2.0) 2.6 mmol/L (0.4-2.0) Urine Collection Type Unknown Urine Color Yellow Urine Clarity Clear Urine pH 5.0 (<5.0-8.0) Urine Specific [place] >=1.030 (1.000-1.030) Urine Protein 100 mg/dL (NEG-TRACE) Urine Glucose (UA) Negative mg/dL (NEG) Urine Ketones (Stick) Negative mg/dL (NEG) Urine Blood Trace (NEG) Urine Nitrite Negative (NEG) Urine Bilirubin Negative (NEG) Urine Urobilinogen Dipstick 0.2 mg/dL (0.2 mg/dL) Urine Leukocyte Esterase Negative (NEG) Urine RBC 1-2 /HPF (0-2) Urine WBC Occ /HPF (0-4) Urine Squamous Epithelial Cells Occ /LPF Urine Amorphous Sediment Present /HPF Urine Bacteria 0 /HPF (0-FEW) Test 03/04/20 04:40 03/04/20 10:45 White Blood Count 20.9 x10^3/uL (4.0-11.0) Red Blood Count 3.35 x10^6/uL (3.50-5.40) Hemoglobin 10.1 g/dL (12.0-15.5) Hematocrit 30.1 % (36.0-47.0) Mean Corpuscular Volume 90 fL (79-100) Mean Corpuscular Hemoglobin 30 pg (25-35) Mean Corpuscular Hemoglobin Concent 34 g/dL (31-37) Red Cell Distribution Width 17.5 % (11.5-14.5) Platelet Count 4860 x10^3/uL (140-400) Neutrophils (%) (Auto) 82 % (31-73) Lymphocytes (%) (Auto) 4 % (24-48) Monocytes (%) (Auto) 11 % (0-9) Eosinophils (%) (Auto) 2 % (0-3) Basophils (%) (Auto) 2 % (0-3) Neutrophils # (Auto) 17.1 x10^3/uL (1.8-7.7) Lymphocytes # (Auto) 0.8 x10^3/uL (1.0-4.8) Monocytes # (Auto) 2.2 x10^3/uL (0.0-1.1) Eosinophils # (Auto) 0.4 x10^3/uL (0.0-0.7) Basophils # (Auto) 0.5 x10^3/uL (0.0-0.2) Prothrombin Time 16.5 SEC (11.7-14.0) Prothromb Time International Ratio 1.4 (0.8-1.1) D-Dimer (Bonita) 3.74 ug/mlFEU (0.00-0.50) Sodium Level 134 mmol/L (136-145) 136 mmol/L (136-145) Potassium Level 5.8 mmol/L (3.5-5.1) 4.8 mmol/L (3.5-5.1) Chloride Level 98 mmol/L (98-107) 99 mmol/L (98-107) Carbon Dioxide Level 25 mmol/L (21-32) 30 mmol/L (21-32) Anion Gap 11 (6-14) 7 (6-14) Blood Urea Nitrogen 21 mg/dL (7-20) 19 mg/dL (7-20) Creatinine 1.2 mg/dL (0.6-1.0) 1.2 mg/dL (0.6-1.0) Estimated GFR (Cockcroft-Gault) 42.3 42.3 BUN/Creatinine Ratio 18 (6-20) Glucose Level 121 mg/dL (70-99) 137 mg/dL (70-99) Calcium Level 9.6 mg/dL (8.5-10.1) 8.8 mg/dL (8.5-10.1) Total Bilirubin 0.3 mg/dL (0.2-1.0) Aspartate Amino Transf (AST/SGOT) 467 U/L (15-37) Alanine Aminotransferase (ALT/SGPT) 852 U/L (14-59) Alkaline Phosphatase 74 U/L (46-116) Total Protein 5.9 g/dL (6.4-8.2) Albumin 3.3 g/dL (3.4-5.0) Albumin/Globulin Ratio 1.3 (1.0-1.7) Iron Level 31 ug/dL (50-170) Total Iron Binding Capacity 281 ug/dL (250-450) Iron Saturation 11 % (15-34) Troponin I Quantitative 0.287 ng/mL (0.000-0.055) Vitals/I & O Vital Sign - Last 24 Hours 03/04/20 03/04/20 03/04/20 03/04/20 15:04 15:35 15:42 15:53 Temp 97.3 101.1 97.3 101.1 Pulse 98 99 Resp 19 44 40 40 B/P (MAP) 175/74 (107) 159/62 (94) Pulse Ox 87 87 88 88 O2 Delivery NonRebreather Mask NonRebreather Mask NonRebreather Mask NonRebreather Mask O2 Flow Rate 15.0 15.0 15.0 15.0 03/04/20 03/04/20 03/04/20 03/04/20 16:08 16:23 16:33 18:39 Temp 98.8 98.8 Resp 30 30 Pulse Ox 91 O2 Delivery Non-Rebreather NonRebreather Mask BiPAP/CPAP O2 Flow Rate 15.0 15.0 03/04/20 03/04/20 03/04/20 03/04/20 18:51 19:00 19:09 19:41 Temp 99.9 99.9 Pulse 95 Resp 32 20 B/P (MAP) 113/49 (70) Pulse Ox 92 95 O2 Delivery BiPAP/CPAP NonRebreather Mask BiPAP/CPAP Bi-pap O2 Flow Rate 15.0 15.0 03/04/20 03/04/20 03/05/20 03/05/20 20:55 22:59 02:46 03:01 Temp 98.6 97.6 98.6 97.6 Pulse 89 86 Resp 33 32 B/P (MAP) 104/48 (66) 120/72 (88) Pulse Ox 93 100 95 100 O2 Delivery BiPAP/CPAP NonRebreather Mask NonRebreather Mask BiPAP/CPAP O2 Flow Rate 15.0 15.0 03/05/20 03/05/20 03/05/20 03/05/20 06:57 07:41 08:00 10:11 Temp 98.0 98.6 98.0 98.6 Pulse 85 84 Resp 32 32 B/P (MAP) 146/57 (86) 145/48 (80) Pulse Ox 100 89 99 O2 Delivery BiPAP/CPAP Venturi Mask Bi-pap BiPAP/CPAP O2 Flow Rate 15.0 03/05/20 03/05/20 11:23 13:07 Pulse Ox 100 100 O2 Delivery BiPAP/CPAP BiPAP/CPAP Intake and Output 03/04/20 03/04/20 03/05/20 15:00 23:00 07:00 Intake Total 0 ml 0 ml 0 ml Output Total 1600 ml 275 ml Balance 0 ml -1600 ml -275 ml Images Ultrasound done; report pending. Problem List Problems Medical Problems: (1) Cardiac arrest Status: Acute (2) Thrombocythemia Status: Acute Assessment Abdominal pain? Difficult to separate from post-code injury. Respiratory issues continue. Plan of Care Note Continue pulmonary treatment. Observe abdomen, LFT's. Fairly recent colonoscopy is somewhat reassuring. Justicifation of Admission Dx: Justifications for Admission: Justification of Admission Dx: Yes DIOMEDES RIOS MD Mar 05, 2020 13:17
[2020-03-05 14:05] VITALS: BP 149/58
--- NOTE | 2020-03-05 14:14 | RAD ---
Abdominal ultrasound 03/05/2020. Comparison is made with the CT of 03/03/2020. Reason for exam: Transaminitis. Abnormal CT. FINDINGS: Liver parenchymal echogenicity appears normal. The biliary tree does not appear dilated. Along the undersurface of the right lobe of the liver, there is an oblong area of mixed echogenicity displacing the kidney inferiorly. This region has a small amount of internal blood flow. It measures about 12 cm in length and 5 cm across. The gallbladder is free of stones or wall thickening. The kidneys are relatively small and has some cortical thinning. No solid mass or obstruction is seen. There is a small left renal cyst. Her graft the pancreas appears normal. The abdominal aorta and inferior vena cava appear normal in their visualized segments. Spleen was not well seen, but does not appear enlarged. IMPRESSION: There is abnormality along the undersurface of the right lobe of the liver. This corresponds to the area of mixed density on CT, and likely indicates a region of hemorrhage in the liver. Electronically signed by: Luke Snider Jr., MD (03/05/2020 2:12 PM) [id number]
[2020-03-05] MEDS: fentaNYL PF VIAL 100 MCG/2 ML VIAL IVP PRN ×3 (15:18→21:34)
[2020-03-05 19:24] VITALS: BP 134/58
--- NOTE | 2020-03-05 19:56 | PDOC ---
Progress Note Subjective Subjective Events noted. Worsening resp. status. NPO. On steroids and Levaquin. Unable to take Hydrea. No role for IV (e.g. Cytoxan) cytoreductive therapy at this point. ROS ROS No nausea No vomiting No pain No rash Vital Sign Vital Signs Vital Signs Date Time Temp Pulse Resp B/P (MAP) Pulse Ox O2 Delivery O2 Flow Rate FiO2 03/05/20 19:30 97 BiPAP/CPAP 03/05/20 19:24 98.3 82 22 134/58 (83) 98.3 03/05/20 07:41 15.0 Physical Exam PHYSICAL EXAM GENERAL: NAD, Alert HEENT: PERRL, OC/OP NECK: Supple, no JVD, no LN LUNGS: Clear HEART: S1S2, no gallop, no murmur ABD: Soft, NT, no organomegaly, no rebound EXT: No edema, no cyanosis SAFETY LEAD: Alert, oriented x 3, no focal neurologic deficit SKIN: No rash IV: ok Labs Lab Abdominal ultrasound 03/05/2020. Comparison is made with the CT of 03/03/2020. Reason for exam: Transaminitis. Abnormal CT. FINDINGS: Liver parenchymal echogenicity appears normal. The biliary tree does not appear dilated. Along the undersurface of the right lobe of the liver, there is an oblong area of mixed echogenicity displacing the kidney inferiorly. This region has a small amount of internal blood flow. It measures about 12 cm in length and 5 cm across. The gallbladder is free of stones or wall thickening. The kidneys are relatively small and has some cortical thinning. No solid mass or obstruction is seen. There is a small left renal cyst. Her graft the pancreas appears normal. The abdominal aorta and inferior vena cava appear normal in their visualized segments. Spleen was not well seen, but does not appear enlarged. IMPRESSION: There is abnormality along the undersurface of the right lobe of the liver. This corresponds to the area of mixed density on CT, and likely indicates a region of hemorrhage in the liver. Objective Assessment 89 yo female with thrombocytosis, platelets 5.4 million on 03/03/2020, 4.8 mln on 03/04, s/p cardiac arrest. DDx: ET vs CML vs P. Vera, vs reactive process (less likely). Evidence of recent bleeding based on 03/03/2020 CT abdomen/pelvis and 03/05 abdominal U/S. Patients with marked thrombocytosis usually have propensity for bleeding due to acquired VWF deficiency. Would follow Hb and hold Lovenox if further decline. Neutrophilic leukocytosis could be related to recent cardiac arrest.Alternatively, it could be manifestation of P. vera. Worsening resp. status. Markedly elevated LFTs. NPO. On steroids and Levaquin. Unable to take Hydrea. No role for IV (e.g. Cytoxan) cytoreductive therapy at this point. PLAN: 1. APTT, VWF. Follow CBC 1-2 x per day due to evidence of intra-abdominal bleeding. BMP, uric acid, CK. 2. Peripheral smear, JAK2 w reflex to CALR and MPL, FISH for BCR-ABL. 3. Hydrea 500 mg bid when able to take po. 4. Would follow Hb and hold Lovenox if further decline. Thank you for the opportunity to see your patient. Please call with any questions. Jean Carlos Hutson MD. [phone]. Plan Plan of Care Unable to take Hydrea. No role for IV (e.g. Cytoxan) cytoreductive therapy at this point. Justicifation of Admission Dx: Justifications for Admission: Justification of Admission Dx: Yes YING HUTSON MD Mar 05, 2020 19:56
[2020-03-05] MEDS: PATCH REMOVAL. MC SCH (21:00)
[2020-03-05] MEDS ORDERED: LACTOBACILLUS RHAMNOSUS GG 1 CAPSULE. PO SCH (21:00)
[2020-03-05] MEDS: ATORVASTATIN CALCIUM 10 MG TABLET. PO SCH (21:00)
[2020-03-05] MEDS: methylPREDNISolone SOD SUCC PF 40 MG/ML VIAL. IV SCH (21:29)
--- NOTE | 2020-03-05 22:29 | PDOC ---
CARDIOLOGY PROGRESS NOTE SUBJECTIVE: No new issues. OBJECTIVE: Vital Signs/I&O: Vital Signs Date Time Temp Pulse Resp B/P (MAP) Pulse Ox O2 Delivery O2 Flow Rate FiO2 03/05/20 21:20 94 BiPAP/CPAP 03/05/20 20:00 15.0 03/05/20 19:24 98.3 82 22 134/58 (83) 98.3 I & O 03/04/20 03/04/20 03/05/20 15:00 23:00 07:00 Intake Total 0 ml 0 ml 0 ml Output Total 1600 ml 275 ml Balance 0 ml -1600 ml -275 ml Objective: Chest: Symmetric LUNGS: Other (coarse on NRB) Heart: RRR (SR), other (Chest wall tenderness) Abdomen: Other (distended) Extremities: Other (2+ bilateral LE pitting edema) Neurology: alert, follow commands Other Exams Discussed with RN, no pain but pt still SOA. CURRENT MEDICATIONS: Current Medications Medications (Trade) Dose Ordered Sig/Leobardo Route PRN Reason Start Time Stop Time Status Last Admin Dose Admin Lorazepam (Ativan Inj) 1 mg PRN Q6HRS PRN IVP ANXIETY / AGITATION 03/05/20 02:45 03/05/20 22:22 Methylprednisolone Sodium Succinate (SOLU-Medrol 40MG VIAL) 40 mg BID IV 03/05/20 21:00 03/05/20 21:29 ASSESSMENT: 1. Acute respiratory failure with possible pneumonia: No rhythm ectopies so far. 2. Atypical Chest pain: likely from CPR, tender to touch 3. Severe Thrombocythemia: PLT 5410 down to 4850, this is recently noted as an outpt and she was referred to hematology but appears to have not been seen. ?malignancy/myelodysplasia? w/u per hematology 4. Severe transaminitis with abdominal pain and distended abd: per GI. LFTs decreasing 5. RBBB: S1Q3T3: no prior for comparison. No arrhythmias overnight 6. Morphine allergy? noted per chart review in the past. Received in ED no reaction so far. 7. Leukocytosis 8. Diastolic CHF 9. ROBSON with hyperkalemia: treatment given 10. HTN urgency 11. HLP 12. Coronary calcification per CT 13. Elevated troponin: 0.115, suspect demand mediated with multiple culprits above. PLAN: Continue present meds. Supportive care. Justicifation of Admission Dx: Justifications for Admission: Justification of Admission Dx: Yes HARLEEN GONZALEZ MD Mar 05, 2020 22:29
[2020-03-05 22:30] VITALS: BP 157/60
[2020-03-06] MEDS: fentaNYL PF VIAL 100 MCG/2 ML VIAL IVP PRN ×3 (01:03→11:07)
[2020-03-06 02:43] VITALS: BP 152/64
[2020-03-06 05:45] LABS: BASO # 0.2 x10^3/uL (0.0-0.2); BASO % 1 % (0-3); EOS % 0 % (0-3); HEMATOCRIT 26.8 % (36.0-47.0); HEMOGLOBIN 8.6 g/dL (12.0-15.5); LYMPH # 1.3 x10^3/uL (1.0-4.8); LYMPH % 6 % (24-48); MEAN CORPUSCULAR HEMOGLOBIN 29 pg (25-35); MEAN CORPUSCULAR HGB CONC 32 g/dL (31-37); MEAN CORPUSCULAR VOLUME 90 fL (79-100); MONO # 1.7 x10^3/uL (0.0-1.1); MONO % 7 % (0-9); NEUT # 20.5 x10^3/uL (1.8-7.7); RED BLOOD COUNT 2.99 x10^6/uL (3.50-5.40); WHITE BLOOD COUNT 23.8 x10^3/uL (4.0-11.0)
[2020-03-06 05:56] LABS: ALBUMIN 2.5 g/dL (3.4-5.0); ALBUMIN/GLOBULIN RATIO 0.7 (1.0-1.7); CALCIUM 8.2 mg/dL (8.5-10.1); CREATININE 1.1 mg/dL (0.6-1.0); GFR 46.8; POTASSIUM 4.4 mmol/L (3.5-5.1); TOTAL BILIRUBIN 0.4 mg/dL (0.2-1.0); URIC ACID 9.8 mg/dL (2.6-6.0)
[2020-03-06 06:48] VITALS: BP 174/85
--- NOTE | 2020-03-06 07:34 | PDOC ---
PROGRESS NOTES Chief Complaint Chief Complaint A/P: pulseless Apneic episode - s/p CPR with immediate return of spontaneous respiratory activity and pulse. conversant. No meds given during episode Acute on Chronic hypoxic respiratory failure - on chronic O2, now on 15 liters likely secondary to pulmonary contusions from CPR. Will consult pulmonology for further recs. COVID-19 testing is negative Thrombocytosis - likely 2/2 malignancy, will consult hematology/oncology Transaminitis - with abnormalities in liver this could be shock liver, but more likely has an active hepatitis process less likely viral more likely from underlying malignancy Acute encephalopathy - likely 2/2 resuscitative efforts. Will monitor mental status, has had some right sided numbness recently. CT head when stable Liver mass - likely from malignancy, will consult GI, trend transaminases Pulmonary infiltrates - likely pulmonary contusions Mediastinal lymphadenopathy - concerning for underling malignancy given her abnormal CT abdomen findings Elevated INR - no anticoagulants. Likely related to liver disease, shock liver vs infiltrative disease. 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 According to EMS patient was at the diagnostic center getting a CT scan of her abdomen and pelvis when she became apneic and lost a pulse. They did compressions for 9 minutes, no medications administered. EMS notes on arrival patient had a pulse and was breathing on her own and was able to talk. She is complaining of shortness of breath and abdominal and chest pain. She tells me she is tired and a little out of sorts. Does note she has had some right-sided numbness that been intermittent recently and is not told the other physicians about this is a little concerned. She does note that prior to this episode she did not have any chest pain. She has been struggling with abdominal pain and swelling and that is the reason she was going for CT scan. She has had dysuria and constipation for the past month. Labs significant for WBC 24.9, hemoglobin 11.3, platelets 5410, INR 1.4, AST 917, ALT 1067, NA 134, K3.4, BUN 18, CR 1.2 Admitted for further care. 03/04: Seen by pulm, Hematology/oncology, cardiology 03/05: Still hypoxic to 86% on facemask, back on BIPAP. Still with chest pain, slight cough, large abdomen. Overnight unable to wean off BIPAP overnight. She is in pain, anxious. Asking for referral to hospice, but does seem intermittently confused. WBC still 23K, platelets > 4000. Afebrile. Spoke with her DPOA, [facility] and wishes for hospice back in her SNF, hopefully in next 24 hours. Vitals Vitals Vital Signs Date Time Temp Pulse Resp B/P (MAP) Pulse Ox O2 Delivery O2 Flow Rate FiO2 03/06/20 07:11 90 BiPAP/CPAP 03/06/20 06:48 98.1 91 22 174/85 (114) 98.1 03/05/20 20:00 15.0 Physical Exam Physical Exam GENERAL: NAD, Alert HEENT: PERRL, OC/OP NECK: Supple, no JVD, no LN LUNGS: Clear HEART: S1S2, no gallop, no murmur ABD: Soft, NT, no organomegaly, no rebound EXT: No edema, no cyanosis [employer]: Alert, oriented x 3, no focal neurologic deficit SKIN: No rash IV: ok General: No acute distress Heart: Regular rate Lungs: Clear Abdomen: Normal bowel sounds, Other (Distended, tender to palpation diffusely, no rebound.) Extremities: No clubbing, No edema Skin: No rashes Labs LABS Laboratory Tests Test 03/06/20 05:00 White Blood Count 23.8 x10^3/uL (4.0-11.0) Red Blood Count 2.99 x10^6/uL (3.50-5.40) Hemoglobin 8.6 g/dL (12.0-15.5) Hematocrit 26.8 % (36.0-47.0) Mean Corpuscular Volume 90 fL (79-100) Mean Corpuscular Hemoglobin 29 pg (25-35) Mean Corpuscular Hemoglobin Concent 32 g/dL (31-37) Red Cell Distribution Width 18.0 % (11.5-14.5) Platelet Count 4380 x10^3/uL (140-400) Neutrophils (%) (Auto) 87 % (31-73) Lymphocytes (%) (Auto) 6 % (24-48) Monocytes (%) (Auto) 7 % (0-9) Eosinophils (%) (Auto) 0 % (0-3) Basophils (%) (Auto) 1 % (0-3) Neutrophils # (Auto) 20.5 x10^3/uL (1.8-7.7) Lymphocytes # (Auto) 1.3 x10^3/uL (1.0-4.8) Monocytes # (Auto) 1.7 x10^3/uL (0.0-1.1) Eosinophils # (Auto) 0.0 x10^3/uL (0.0-0.7) Basophils # (Auto) 0.2 x10^3/uL (0.0-0.2) Activated Partial Thromboplast Time 43 SEC (24-38) Sodium Level 143 mmol/L (136-145) Potassium Level 4.4 mmol/L (3.5-5.1) Chloride Level 107 mmol/L (98-107) Carbon Dioxide Level 25 mmol/L (21-32) Anion Gap 11 (6-14) Blood Urea Nitrogen 30 mg/dL (7-20) Creatinine 1.1 mg/dL (0.6-1.0) Estimated GFR (Cockcroft-Gault) 46.8 BUN/Creatinine Ratio 27 (6-20) Glucose Level 162 mg/dL (70-99) Uric Acid 9.8 mg/dL (2.6-6.0) Calcium Level 8.2 mg/dL (8.5-10.1) Total Bilirubin 0.4 mg/dL (0.2-1.0) Aspartate Amino Transf (AST/SGOT) 97 U/L (15-37) Alanine Aminotransferase (ALT/SGPT) 500 U/L (14-59) Alkaline Phosphatase 93 U/L (46-116) Creatine Kinase 75 U/L (26-192) Total Protein 6.0 g/dL (6.4-8.2) Albumin 2.5 g/dL (3.4-5.0) Albumin/Globulin Ratio 0.7 (1.0-1.7) Assessment and Plan Assessmemt and Plan Problems Medical Problems: (1) Cardiac arrest Status: Acute (2) Thrombocythemia Status: Acute Comment Review of Relevant I have reviewed the following items juan (where applicable) has been applied. Labs Laboratory Tests Test 03/04/20 10:45 03/06/20 05:00 Sodium Level 136 mmol/L (136-145) 143 mmol/L (136-145) Potassium Level 4.8 mmol/L (3.5-5.1) 4.4 mmol/L (3.5-5.1) Chloride Level 99 mmol/L (98-107) 107 mmol/L (98-107) Carbon Dioxide Level 30 mmol/L (21-32) 25 mmol/L (21-32) Anion Gap 7 (6-14) 11 (6-14) Blood Urea Nitrogen 19 mg/dL (7-20) 30 mg/dL (7-20) Creatinine 1.2 mg/dL (0.6-1.0) 1.1 mg/dL (0.6-1.0) Estimated GFR (Cockcroft-Gault) 42.3 46.8 Glucose Level 137 mg/dL (70-99) 162 mg/dL (70-99) Calcium Level 8.8 mg/dL (8.5-10.1) 8.2 mg/dL (8.5-10.1) Iron Level 31 ug/dL (50-170) Total Iron Binding Capacity 281 ug/dL (250-450) Iron Saturation 11 % (15-34) Troponin I Quantitative 0.287 ng/mL (0.000-0.055) White Blood Count 23.8 x10^3/uL (4.0-11.0) Red Blood Count 2.99 x10^6/uL (3.50-5.40) Hemoglobin 8.6 g/dL (12.0-15.5) Hematocrit 26.8 % (36.0-47.0) Mean Corpuscular Volume 90 fL (79-100) Mean Corpuscular Hemoglobin 29 pg (25-35) Mean Corpuscular Hemoglobin Concent 32 g/dL (31-37) Red Cell Distribution Width 18.0 % (11.5-14.5) Platelet Count 4380 x10^3/uL (140-400) Neutrophils (%) (Auto) 87 % (31-73) Lymphocytes (%) (Auto) 6 % (24-48) Monocytes (%) (Auto) 7 % (0-9) Eosinophils (%) (Auto) 0 % (0-3) Basophils (%) (Auto) 1 % (0-3) Neutrophils # (Auto) 20.5 x10^3/uL (1.8-7.7) Lymphocytes # (Auto) 1.3 x10^3/uL (1.0-4.8) Monocytes # (Auto) 1.7 x10^3/uL (0.0-1.1) Eosinophils # (Auto) 0.0 x10^3/uL (0.0-0.7) Basophils # (Auto) 0.2 x10^3/uL (0.0-0.2) Activated Partial Thromboplast Time 43 SEC (24-38) BUN/Creatinine Ratio 27 (6-20) Uric Acid 9.8 mg/dL (2.6-6.0) Total Bilirubin 0.4 mg/dL (0.2-1.0) Aspartate Amino Transf (AST/SGOT) 97 U/L (15-37) Alanine Aminotransferase (ALT/SGPT) 500 U/L (14-59) Alkaline Phosphatase 93 U/L (46-116) Creatine Kinase 75 U/L (26-192) Total Protein 6.0 g/dL (6.4-8.2) Albumin 2.5 g/dL (3.4-5.0) Albumin/Globulin Ratio 0.7 (1.0-1.7) Laboratory Tests Test 03/06/20 05:00 White Blood Count 23.8 x10^3/uL (4.0-11.0) Red Blood Count 2.99 x10^6/uL (3.50-5.40) Hemoglobin 8.6 g/dL (12.0-15.5) Hematocrit 26.8 % (36.0-47.0) Mean Corpuscular Volume 90 fL (79-100) Mean Corpuscular Hemoglobin 29 pg (25-35) Mean Corpuscular Hemoglobin Concent 32 g/dL (31-37) Red Cell Distribution Width 18.0 % (11.5-14.5) Platelet Count 4380 x10^3/uL (140-400) Neutrophils (%) (Auto) 87 % (31-73) Lymphocytes (%) (Auto) 6 % (24-48) Monocytes (%) (Auto) 7 % (0-9) Eosinophils (%) (Auto) 0 % (0-3) Basophils (%) (Auto) 1 % (0-3) Neutrophils # (Auto) 20.5 x10^3/uL (1.8-7.7) Lymphocytes # (Auto) 1.3 x10^3/uL (1.0-4.8) Monocytes # (Auto) 1.7 x10^3/uL (0.0-1.1) Eosinophils # (Auto) 0.0 x10^3/uL (0.0-0.7) Basophils # (Auto) 0.2 x10^3/uL (0.0-0.2) Activated Partial Thromboplast Time 43 SEC (24-38) Sodium Level 143 mmol/L (136-145) Potassium Level 4.4 mmol/L (3.5-5.1) Chloride Level 107 mmol/L (98-107) Carbon Dioxide Level 25 mmol/L (21-32) Anion Gap 11 (6-14) Blood Urea Nitrogen 30 mg/dL (7-20) Creatinine 1.1 mg/dL (0.6-1.0) Estimated GFR (Cockcroft-Gault) 46.8 BUN/Creatinine Ratio 27 (6-20) Glucose Level 162 mg/dL (70-99) Uric Acid 9.8 mg/dL (2.6-6.0) Calcium Level 8.2 mg/dL (8.5-10.1) Total Bilirubin 0.4 mg/dL (0.2-1.0) Aspartate Amino Transf (AST/SGOT) 97 U/L (15-37) Alanine Aminotransferase (ALT/SGPT) 500 U/L (14-59) Alkaline Phosphatase 93 U/L (46-116) Creatine Kinase 75 U/L (26-192) Total Protein 6.0 g/dL (6.4-8.2) Albumin 2.5 g/dL (3.4-5.0) Albumin/Globulin Ratio 0.7 (1.0-1.7) Medications Current Medications Morphine Sulfate (Morphine Sulfate) 5 mg 1X ONCE IV Last administered on 03/03/20at 11:25; Start 03/03/20 at 11:00; Stop 03/03/20 at 11:23; Status DC Ondansetron HCl (Zofran) 4 mg 1X ONCE IVP Last administered on 03/03/20at 11:46; Start 03/03/20 at 11:15; Stop 03/03/20 at 11:23; Status DC Morphine Sulfate (Morphine Sulfate) 5 mg 1X ONCE IV Last administered on 03/03/20at 11:46; Start 03/03/20 at 11:45; Stop 03/03/20 at 11:46; Status DC Morphine Sulfate (Morphine Sulfate) 5 mg 1X ONCE IV Last administered on 03/03/20at 13:39; Start 03/03/20 at 13:30; Stop 03/03/20 at 13:31; Status DC Fentanyl Citrate (Fentanyl 2ml Vial) 25 mcg PRN Q2HR PRN IVP PAIN Last administ ered on 03/04/20at 06:09; Start 03/03/20 at 15:45; Stop 03/04/20 at 07:56; Status DC Tramadol HCl (Ultram) 50 mg PRN Q6HRS PRN PO MODERATE - SEVERE PAIN Last administered on 03/04/20at 03:11; Start 03/03/20 at 16:00 Pantoprazole Sodium (PROTONIX VIAL for IV PUSH) 40 mg DAILYAC IVP Last administered on 03/05/20at 08:27; Start 03/03/20 at 16:30 Acetaminophen (Tylenol) 1,000 mg PRN Q6HRS PRN PO MILD PAIN 1-3 Last administered on 03/04/20at 03:11; Start 03/03/20 at 16:45 Ringer's Solution 1,000 ml @ 100 mls/hr Q10H IV Last administered on 03/03/20at 21:55; Start 03/03/20 at 17:15; Stop 03/04/20 at 10:17; Status DC Enoxaparin Sodium (Lovenox 40mg Syringe) 40 mg BID SQ ; Start 03/03/20 at 17:00; Stop 03/03/20 at 17:51; Status DC Levofloxacin/ Dextrose 100 ml @ 100 mls/hr Q24H IV Last administered on 03/03/20 17:55; Start 03/03/20 at 18:00; Stop 03/03/20 at 18:59; Status DC Furosemide (Lasix) 20 mg 1X ONCE IVP Last administered on 03/03/20 17:52; Start 03/03/20 at 18:00; Stop 03/03/20 at 18:01; Status DC Levofloxacin/ Dextrose 50 ml @ 50 mls/hr Q24H IV Last administered on 03/05/20 17:29; Start 03/04/20 at 18:00 Aspirin (Ecotrin) 325 mg BID PO Last administered on 03/04/20 08:10; Start 03/03/20 at 21:00; Stop 03/04/20 at 11:00; Status DC Fentanyl Citrate (Fentanyl 2ml Vial) 50 mcg PRN Q1HR PRN IVP SEVERE PAIN 7-10 Last administered on 03/06/20at 03:35; Start 03/04/20 at 08:00 Fentanyl Citrate (Fentanyl 2ml Vial) 100 mcg STK-MED ONCE .ROUTE ; Start 03/04/20 at 08:01; Stop 03/04/20 at 08:02; Status DC Furosemide (Lasix) 40 mg 1X ONCE IVP Last administered on 03/04/20 10:22; Start 03/04/20 at 10:15; Stop 03/04/20 at 10:20; Status DC Sodium Chloride 1,000 ml @ 75 mls/hr [id number] IV Last administered on 03/05/20at 17:28; Start 03/04/20 at 10:15 Fentanyl (Duragesic 50mcg/ Hr Patch) 1 patch Q3DAYS TD Last administered on 03/04/20 11:42; Start 03/04/20 at 11:00 Lidocaine (Lidoderm) 1 patch DAILY TD Last administered on 03/05/20 08:27; Start 03/04/20 at 11:00 Miscellaneous (Lidoderm Patch Removal) 1 ea QHS MC Last administered on 03/05/20at 21:00; Start 03/04/20 at 21:00 Enoxaparin Sodium (Lovenox 30mg Syringe) 30 mg Q24H SQ Last administered on 7/11/20at 11:47; Start 03/04/20 at 11:00 Hydralazine HCl (Apresoline Inj) 10 mg PRN Q4HRS PRN IVP ELEVATED BP, SEE COMMENTS; Start 03/04/20 at 12:30 Aspirin (Ecotrin) 81 mg DAILYWBKFT PO ; Start 03/04/20 at 13:00 Atorvastatin Calcium (Lipitor) 10 mg QHS PO ; Start 03/04/20 at 21:00 Ketorolac Tromethamine (Toradol 15mg Vial) 15 mg PRN Q8HRS PRN IVP MODERATE PAIN 4-6 Last administered on 03/04/20at 21:50; Start 03/04/20 at 18:15; Stop 03/09/20 at 18:14 Methylprednisolone Sodium Succinate (SOLU-Medrol 125MG VIAL) 125 mg BID IV Last administered on 03/05/20at 08:27; Start 03/04/20 at 21:00; Stop 03/05/20 at 17:07; Status DC Albuterol/ Ipratropium (Duoneb) 3 ml TID NEB Last administered on 03/05/20at 19:30; Start 03/04/20 at 21:00 Albuterol/ Ipratropium (Duoneb) 3 ml PRN Q2HRS NEB ; Start 03/04/20 at 18:15; Stop 03/04/20 at 18:27; Status DC Albuterol Sulfate (Ventolin Neb Soln) 2.5 mg PRN Q2HR PRN NEB SHORTNESS OF BREATH; Start 03/04/20 at 18:30 Lorazepam (Ativan Inj) 1 mg PRN Q6HRS PRN IVP ANXIETY / AGITATION Last administered on 03/06/20at 04:53; Start 03/05/20 at 02:45 Lactobacillus Rhamnosus (Culturelle) 1 cap BID PO ; Start 03/05/20 at 21:00; Status Cancel Methylprednisolone Sodium Succinate (SOLU-Medrol 40MG VIAL) 40 mg BID IV Last administered on 03/05/20at 21:29; Start 03/05/20 at 21:00 Active Scripts Active Reported Furosemide 40 Mg Tablet 40 Mg PO DAILY Aspirin 325 Mg Tablet 1 Tab PO DAILY Acetaminophen 325 Mg/10.15 Ml Solution 650 Mg PO BID Omeprazole 20 Mg Capsule.dr 20 Mg PO DAILY Gaviscon Es Tablet Chew (Magnesium Carbonate/Al Hydrox) 1 Each Tab.chew 1 Each PO PRN Q6HRS PRN Miralax (Polyethylene Glycol 3350) 17 Gm Powd.pack 1 Packet PO BID 2 Days dissolve in water Preparation H Cream (Phenyleph/Pramoxin/Glycr/W.pet) 26 Gm Cream..g. 26 Gm RC PRN PRN Baclofen 10 Mg Tablet 5 Mg PO BID Atrovent Hfa (Ipratropium [place]) 12.9 Gm Hfa.aer.ad 2 Puff IH BID Lidocaine-Hc 3-1% Cream Kit (Hydrocortisone Ac/Lidocaine) 1 Each Kit 1 Each RC TID Tramadol Hcl 50 Mg Tablet 50 Mg PO Q4HRS PRN Systane 0.3-0.4% Eye Drops (Propylene Glycol/Peg 400) 15 Ml Drops 1 Drop EACHEYE QID Colace (Docusate Sodium) 100 Mg Capsule 200 Mg PO DAILY Ativan (Lorazepam) 0.5 Mg Tablet 0.5 Mg PO HS Lidocaine PATCH (Lidocaine) 1 Each Adh..patch 1 Each TP DAILY REMOVE AFTER 12 HOURS Multivitamins With Minerals (Multivitamin With Minerals) 1 Each Tablet 1 Tab PO DAILY 30 Days Zyrtec (Cetirizine Hcl) 10 Mg Tablet 1 Tab PO DAILY Breo Ellipta 100-25 Mcg Inh (Fluticasone/Vilanterol) 1 Each Aer.pow.ba 1 Puff IH DAILY Dulcolax (Bisacodyl) 10 Mg Supp.rect 1 Supp RC DAILY 10 Days Amlodipine Besylate 2.5 Mg Tablet 2.5 Mg PO DAILY Trazodone Hcl 100 Mg Tablet 1 Tab PO QHS Montelukast Sodium Tablet (Montelukast Sodium) 10 Mg Tablet 10 Mg PO HS Mylanta Maximum Strength Liq (Mag Hydrox/Aluminum Hyd/Simeth) 355 Ml Oral.susp 30 Ml PO PRN Q4HRS PRN Vitals/I & O Vital Sign - Last 24 Hours 03/05/20 03/05/20 03/05/20 03/05/20 07:41 08:00 10:11 11:23 Temp 98.6 98.6 Pulse 84 Resp 32 B/P (MAP) 145/48 (80) Pulse Ox 89 99 100 O2 Delivery Venturi Mask Bi-pap BiPAP/CPAP BiPAP/CPAP O2 Flow Rate 15.0 03/05/20 03/05/20 03/05/20 03/05/20 13:07 14:05 15:18 15:33 Temp 98.6 98.6 Pulse 87 Resp 32 B/P (MAP) 149/58 (88) Pulse Ox 100 100 99 O2 Delivery BiPAP/CPAP BiPAP/CPAP BiPAP/CPAP BiPAP/CPAP 03/05/20 03/05/20 03/05/20 03/05/20 17:45 18:08 19:24 19:30 Temp 98.3 98.3 Pulse 82 Resp 22 B/P (MAP) 134/58 (83) Pulse Ox 96 99 97 O2 Delivery BiPAP/CPAP BiPAP/CPAP BiPAP/CPAP BiPAP/CPAP 03/05/20 03/05/20 03/05/20 03/06/20 20:00 21:20 22:30 00:32 Temp 98.0 98.0 Pulse 92 Resp 22 B/P (MAP) 157/60 (92) Pulse Ox 94 91 92 O2 Delivery Bi-pap BiPAP/CPAP BiPAP/CPAP BiPAP/CPAP O2 Flow Rate 15.0 03/06/20 03/06/20 03/06/20 02:43 06:48 07:11 Temp 98.4 98.1 98.4 98.1 Pulse 86 91 Resp 22 22 B/P (MAP) 152/64 (93) 174/85 (114) Pulse Ox 96 90 90 O2 Delivery BiPAP/CPAP BiPAP/CPAP BiPAP/CPAP Intake and Output 03/05/20 03/05/20 03/06/20 14:59 22:59 06:59 Intake Total 0 ml 50 ml 850 ml Output Total 350 ml 400 ml Balance 0 ml -300 ml 450 ml Justicifation of Admission Dx: Justifications for Admission: Justification of Admission Dx: Yes SIMON ZHANG MD Mar 06, 2020 07:34
[2020-03-06] MEDS: IPRATRPIUM/ALBUTEROL 0.5/2.5MG 3 ML NEBU. NEB SCH ×3 (07:35→20:03)
[2020-03-06] MEDS: ASPIRIN ENTERIC COATED 81 MG TABLET.DR. PO SCH (08:00)
[2020-03-06] MEDS: LIDOCAINE (700MG/PATCH) PATCH. TD SCH (08:43)
[2020-03-06] MEDS: KETOROLAC 15 MG/ML VIAL. IVP PRN (08:43)
[2020-03-06] MEDS: PANTOPRAZOLE IV PUSH 40 MG VIAL. IVP SCH (08:43)
[2020-03-06] MEDS: methylPREDNISolone SOD SUCC PF 40 MG/ML VIAL. IV SCH ×2 (08:43→21:32)
[2020-03-06] MEDS: IV NORMAL SALINE 1000ML BAG 1,000 ML IV SCH (08:53)
[2020-03-06 10:09] VITALS: BP 184/84
--- NOTE | 2020-03-06 10:17 | PDOC ---
PULMONARY PROGRESS NOTES Subjective on bipap, weaker, has sob, told night rn, wants to hospice Vitals Vital Signs Date Time Temp Pulse Resp B/P (MAP) Pulse Ox O2 Delivery O2 Flow Rate FiO2 03/06/20 10:09 99.7 90 22 184/84 (117) 91 BiPAP/CPAP 99.7 03/05/20 20:00 15.0 ROS: No Nausea, No Abdominal Pain, No Increase Cough General: Alert Lungs: Crackles Cardiovascular: S1, S2 Abdomen: Soft Neuro Exam: Alert Extremities: No Edema Skin: Warm Labs Laboratory Tests Test 03/04/20 10:45 03/06/20 05:00 Sodium Level 136 mmol/L (136-145) 143 mmol/L (136-145) Potassium Level 4.8 mmol/L (3.5-5.1) 4.4 mmol/L (3.5-5.1) Chloride Level 99 mmol/L (98-107) 107 mmol/L (98-107) Carbon Dioxide Level 30 mmol/L (21-32) 25 mmol/L (21-32) Anion Gap 7 (6-14) 11 (6-14) Blood Urea Nitrogen 19 mg/dL (7-20) 30 mg/dL (7-20) Creatinine 1.2 mg/dL (0.6-1.0) 1.1 mg/dL (0.6-1.0) Estimated GFR (Cockcroft-Gault) 42.3 46.8 Glucose Level 137 mg/dL (70-99) 162 mg/dL (70-99) Calcium Level 8.8 mg/dL (8.5-10.1) 8.2 mg/dL (8.5-10.1) Iron Level 31 ug/dL (50-170) Total Iron Binding Capacity 281 ug/dL (250-450) Iron Saturation 11 % (15-34) Troponin I Quantitative 0.287 ng/mL (0.000-0.055) White Blood Count 23.8 x10^3/uL (4.0-11.0) Red Blood Count 2.99 x10^6/uL (3.50-5.40) Hemoglobin 8.6 g/dL (12.0-15.5) Hematocrit 26.8 % (36.0-47.0) Mean Corpuscular Volume 90 fL (79-100) Mean Corpuscular Hemoglobin 29 pg (25-35) Mean Corpuscular Hemoglobin Concent 32 g/dL (31-37) Red Cell Distribution Width 18.0 % (11.5-14.5) Platelet Count 4380 x10^3/uL (140-400) Neutrophils (%) (Auto) 87 % (31-73) Lymphocytes (%) (Auto) 6 % (24-48) Monocytes (%) (Auto) 7 % (0-9) Eosinophils (%) (Auto) 0 % (0-3) Basophils (%) (Auto) 1 % (0-3) Neutrophils # (Auto) 20.5 x10^3/uL (1.8-7.7) Lymphocytes # (Auto) 1.3 x10^3/uL (1.0-4.8) Monocytes # (Auto) 1.7 x10^3/uL (0.0-1.1) Eosinophils # (Auto) 0.0 x10^3/uL (0.0-0.7) Basophils # (Auto) 0.2 x10^3/uL (0.0-0.2) Activated Partial Thromboplast Time 43 SEC (24-38) BUN/Creatinine Ratio 27 (6-20) Uric Acid 9.8 mg/dL (2.6-6.0) Total Bilirubin 0.4 mg/dL (0.2-1.0) Aspartate Amino Transf (AST/SGOT) 97 U/L (15-37) Alanine Aminotransferase (ALT/SGPT) 500 U/L (14-59) Alkaline Phosphatase 93 U/L (46-116) Creatine Kinase 75 U/L (26-192) Total Protein 6.0 g/dL (6.4-8.2) Albumin 2.5 g/dL (3.4-5.0) Albumin/Globulin Ratio 0.7 (1.0-1.7) Laboratory Tests Test 03/06/20 05:00 White Blood Count 23.8 x10^3/uL (4.0-11.0) Red Blood Count 2.99 x10^6/uL (3.50-5.40) Hemoglobin 8.6 g/dL (12.0-15.5) Hematocrit 26.8 % (36.0-47.0) Mean Corpuscular Volume 90 fL (79-100) Mean Corpuscular Hemoglobin 29 pg (25-35) Mean Corpuscular Hemoglobin Concent 32 g/dL (31-37) Red Cell Distribution Width 18.0 % (11.5-14.5) Platelet Count 4380 x10^3/uL (140-400) Neutrophils (%) (Auto) 87 % (31-73) Lymphocytes (%) (Auto) 6 % (24-48) Monocytes (%) (Auto) 7 % (0-9) Eosinophils (%) (Auto) 0 % (0-3) Basophils (%) (Auto) 1 % (0-3) Neutrophils # (Auto) 20.5 x10^3/uL (1.8-7.7) Lymphocytes # (Auto) 1.3 x10^3/uL (1.0-4.8) Monocytes # (Auto) 1.7 x10^3/uL (0.0-1.1) Eosinophils # (Auto) 0.0 x10^3/uL (0.0-0.7) Basophils # (Auto) 0.2 x10^3/uL (0.0-0.2) Activated Partial Thromboplast Time 43 SEC (24-38) Sodium Level 143 mmol/L (136-145) Potassium Level 4.4 mmol/L (3.5-5.1) Chloride Level 107 mmol/L (98-107) Carbon Dioxide Level 25 mmol/L (21-32) Anion Gap 11 (6-14) Blood Urea Nitrogen 30 mg/dL (7-20) Creatinine 1.1 mg/dL (0.6-1.0) Estimated GFR (Cockcroft-Gault) 46.8 BUN/Creatinine Ratio 27 (6-20) Glucose Level 162 mg/dL (70-99) Uric Acid 9.8 mg/dL (2.6-6.0) Calcium Level 8.2 mg/dL (8.5-10.1) Total Bilirubin 0.4 mg/dL (0.2-1.0) Aspartate Amino Transf (AST/SGOT) 97 U/L (15-37) Alanine Aminotransferase (ALT/SGPT) 500 U/L (14-59) Alkaline Phosphatase 93 U/L (46-116) Creatine Kinase 75 U/L (26-192) Total Protein 6.0 g/dL (6.4-8.2) Albumin 2.5 g/dL (3.4-5.0) Albumin/Globulin Ratio 0.7 (1.0-1.7) Medications Active Scripts Medications Dose Route/Sig Max Daily Dose Days Date Category Dose Instructions Atrovent Hfa (Ipratropium [place]) 12.9 Gm Hfa.aer.ad 2 Puff IH BID 03/03/20 Reported Lidocaine-Hc 3-1% Cream Kit (Hydrocortisone Ac/Lidocaine) 1 Each Kit 1 Each RC TID 03/03/20 Reported Tramadol Hcl 50 Mg Tablet 50 Mg PO Q4HRS PRN 03/03/20 Reported Systane 0.3-0.4% Eye Drops (Propylene Glycol/Peg 400) 15 Ml Drops 1 Drop EACHEYE QID 03/03/20 Reported Colace (Docusate Sodium) 100 Mg Capsule 200 Mg PO DAILY 03/03/20 Reported Ativan (Lorazepam) 0.5 Mg Tablet 0.5 Mg PO HS 03/03/20 Reported Lidocaine PATCH (Lidocaine) 1 Each Adh..patch 1 Each TP DAILY 03/03/20 Reported REMOVE AFTER 12 HOURS Multivitamins With Minerals (Multivitamin With Minerals) 1 Each Tablet 1 Tab PO DAILY 30 03/03/20 Reported Zyrtec (Cetirizine Hcl) 10 Mg Tablet 1 Tab PO DAILY 03/03/20 Reported Breo Ellipta 100-25 Mcg Inh (Fluticasone/Vilanterol) 1 Each Aer.pow.ba 1 Puff IH DAILY 03/03/20 Reported Dulcolax (Bisacodyl) 10 Mg Supp.rect 1 Supp RC DAILY 10 03/03/20 Reported Amlodipine Besylate 2.5 Mg Tablet 2.5 Mg PO DAILY 03/03/20 Reported Trazodone Hcl 100 Mg Tablet 1 Tab PO QHS 03/03/20 Reported Montelukast Sodium Tablet (Montelukast Sodium) 10 Mg Tablet 10 Mg PO HS 03/03/20 Reported Mylanta Maximum Strength Liq (Mag Hydrox/Aluminum Hyd/Simeth) 355 Ml Oral.susp 30 Ml PO PRN Q4HRS PRN 03/03/20 Reported Impression . IMPRESSION: 1. Vnc-[id number]-[id number] arrest, unclear if she had total cardiopulmonary arrest. 2. Abnormal CT chest revealing bilateral interstitial and alveolar type of infiltrates. 3. Acute hypoxemic respiratory failure. 4. Thrombocytosis. 5. Leukocytosis. 6. Elevated liver chemistries. 7. Elevated troponin. 8. History of abdominal distention. Plan . cont bipap, setting reviewed pt requested hospice per primary follow medical oncology input fentanyl patch at 50 mcg for pain, avoid over sedation cont abx SARS-CoV-2 neg BD change solumedrol to 40 bid Follow cardiology input GI following Clinical suspicion for PE is low, unable to perform CT angiogram secondary to renal insufficiency discussed w KARLA Gallego MD Mar 06, 2020 10:17
[2020-03-06] MEDS: ENOXAPARIN 30 MG/0.3 ML SYRINGE. SQ SCH (10:38)
--- NOTE | 2020-03-06 11:54 | PDOC ---
G I PROGRESS NOTE Subjective On BIPAP; did not awaken with exam. Physical Exam Lungs coarse. RRR Abdomen soft, remains protuberant w/o change. Review of Relevant I have reviewed the following items juan (where applicable) has been applied. Labs Laboratory Tests Test 03/06/20 05:00 White Blood Count 23.8 x10^3/uL (4.0-11.0) Red Blood Count 2.99 x10^6/uL (3.50-5.40) Hemoglobin 8.6 g/dL (12.0-15.5) Hematocrit 26.8 % (36.0-47.0) Mean Corpuscular Volume 90 fL (79-100) Mean Corpuscular Hemoglobin 29 pg (25-35) Mean Corpuscular Hemoglobin Concent 32 g/dL (31-37) Red Cell Distribution Width 18.0 % (11.5-14.5) Platelet Count 4380 x10^3/uL (140-400) Neutrophils (%) (Auto) 87 % (31-73) Lymphocytes (%) (Auto) 6 % (24-48) Monocytes (%) (Auto) 7 % (0-9) Eosinophils (%) (Auto) 0 % (0-3) Basophils (%) (Auto) 1 % (0-3) Neutrophils # (Auto) 20.5 x10^3/uL (1.8-7.7) Lymphocytes # (Auto) 1.3 x10^3/uL (1.0-4.8) Monocytes # (Auto) 1.7 x10^3/uL (0.0-1.1) Eosinophils # (Auto) 0.0 x10^3/uL (0.0-0.7) Basophils # (Auto) 0.2 x10^3/uL (0.0-0.2) Activated Partial Thromboplast Time 43 SEC (24-38) Sodium Level 143 mmol/L (136-145) Potassium Level 4.4 mmol/L (3.5-5.1) Chloride Level 107 mmol/L (98-107) Carbon Dioxide Level 25 mmol/L (21-32) Anion Gap 11 (6-14) Blood Urea Nitrogen 30 mg/dL (7-20) Creatinine 1.1 mg/dL (0.6-1.0) Estimated GFR (Cockcroft-Gault) 46.8 BUN/Creatinine Ratio 27 (6-20) Glucose Level 162 mg/dL (70-99) Uric Acid 9.8 mg/dL (2.6-6.0) Calcium Level 8.2 mg/dL (8.5-10.1) Total Bilirubin 0.4 mg/dL (0.2-1.0) Aspartate Amino Transf (AST/SGOT) 97 U/L (15-37) Alanine Aminotransferase (ALT/SGPT) 500 U/L (14-59) Alkaline Phosphatase 93 U/L (46-116) Creatine Kinase 75 U/L (26-192) Total Protein 6.0 g/dL (6.4-8.2) Albumin 2.5 g/dL (3.4-5.0) Albumin/Globulin Ratio 0.7 (1.0-1.7) Laboratory Tests Test 03/06/20 05:00 White Blood Count 23.8 x10^3/uL (4.0-11.0) Red Blood Count 2.99 x10^6/uL (3.50-5.40) Hemoglobin 8.6 g/dL (12.0-15.5) Hematocrit 26.8 % (36.0-47.0) Mean Corpuscular Volume 90 fL (79-100) Mean Corpuscular Hemoglobin 29 pg (25-35) Mean Corpuscular Hemoglobin Concent 32 g/dL (31-37) Red Cell Distribution Width 18.0 % (11.5-14.5) Platelet Count 4380 x10^3/uL (140-400) Neutrophils (%) (Auto) 87 % (31-73) Lymphocytes (%) (Auto) 6 % (24-48) Monocytes (%) (Auto) 7 % (0-9) Eosinophils (%) (Auto) 0 % (0-3) Basophils (%) (Auto) 1 % (0-3) Neutrophils # (Auto) 20.5 x10^3/uL (1.8-7.7) Lymphocytes # (Auto) 1.3 x10^3/uL (1.0-4.8) Monocytes # (Auto) 1.7 x10^3/uL (0.0-1.1) Eosinophils # (Auto) 0.0 x10^3/uL (0.0-0.7) Basophils # (Auto) 0.2 x10^3/uL (0.0-0.2) Activated Partial Thromboplast Time 43 SEC (24-38) Sodium Level 143 mmol/L (136-145) Potassium Level 4.4 mmol/L (3.5-5.1) Chloride Level 107 mmol/L (98-107) Carbon Dioxide Level 25 mmol/L (21-32) Anion Gap 11 (6-14) Blood Urea Nitrogen 30 mg/dL (7-20) Creatinine 1.1 mg/dL (0.6-1.0) Estimated GFR (Cockcroft-Gault) 46.8 BUN/Creatinine Ratio 27 (6-20) Glucose Level 162 mg/dL (70-99) Uric Acid 9.8 mg/dL (2.6-6.0) Calcium Level 8.2 mg/dL (8.5-10.1) Total Bilirubin 0.4 mg/dL (0.2-1.0) Aspartate Amino Transf (AST/SGOT) 97 U/L (15-37) Alanine Aminotransferase (ALT/SGPT) 500 U/L (14-59) Alkaline Phosphatase 93 U/L (46-116) Creatine Kinase 75 U/L (26-192) Total Protein 6.0 g/dL (6.4-8.2) Albumin 2.5 g/dL (3.4-5.0) Albumin/Globulin Ratio 0.7 (1.0-1.7) Vitals/I & O Vital Sign - Last 24 Hours 03/05/20 03/05/20 03/05/20 03/05/20 13:07 14:05 15:18 15:33 Temp 98.6 98.6 Pulse 87 Resp 32 B/P (MAP) 149/58 (88) Pulse Ox 100 100 99 O2 Delivery BiPAP/CPAP BiPAP/CPAP BiPAP/CPAP BiPAP/CPAP 03/05/20 03/05/20 03/05/20 03/05/20 17:45 18:08 19:24 19:30 Temp 98.3 98.3 Pulse 82 Resp 22 B/P (MAP) 134/58 (83) Pulse Ox 96 99 97 O2 Delivery BiPAP/CPAP BiPAP/CPAP BiPAP/CPAP BiPAP/CPAP 03/05/20 03/05/20 03/05/20/12/20 20:00 21:20 22:30 00:32 Temp 98.0 98.0 Pulse 92 Resp 22 B/P (MAP) 157/60 (92) Pulse Ox 94 91 92 O2 Delivery Bi-pap BiPAP/CPAP BiPAP/CPAP BiPAP/CPAP O2 Flow Rate 15.0 03/06/20 03/06/20 03/06/20 03/06/20 02:43 06:48 07:11 07:25 Temp 98.4 98.1 98.4 98.1 Pulse 86 91 Resp 22 22 B/P (MAP) 152/64 (93) 174/85 (114) Pulse Ox 96 90 90 O2 Delivery BiPAP/CPAP BiPAP/CPAP BiPAP/CPAP Bi-pap 03/06/20 03/06/20 03/06/20 03/06/20 10:09 10:36 11:07 11:13 Temp 99.7 99.7 Pulse 90 90 Resp 22 B/P (MAP) 184/84 (117) 184/84 Pulse Ox 91 88 O2 Delivery BiPAP/CPAP BiPAP/CPAP BiPAP/CPAP 03/06/20 11:41 O2 Delivery BiPAP/CPAP Intake and Output 03/05/20 03/05/20 03/06/20 15:00 23:00 07:00 Intake Total 0 ml 50 ml 850 ml Output Total 350 ml 400 ml Balance 0 ml -300 ml 450 ml Problem List Problems Medical Problems: (1) Cardiac arrest Status: Acute (2) Thrombocythemia Status: Acute Assessment Elevated LFT's; continue to improve. Likely "hypotensive hepatopathy" from arrest. Abdomen seems stable. Plan of Care Note Continue support. Justicifation of Admission Dx: Justifications for Admission: Justification of Admission Dx: Yes DIOMEDES RIOS MD Mar 06, 2020 11:54
[2020-03-06] MEDS ORDERED: LORazepam INTENSOL 2 MG/ML ORAL.CONC SL PRN (12:30)
[2020-03-06] MEDS: MORPHINE SULFATE 20 MG/ML CONC SOLUTION. SL PRN (14:55)
[2020-03-06 19:22] VITALS: BP 159/78
[2020-03-06] MEDS: PATCH REMOVAL. MC SCH (21:00)
[2020-03-07] MEDS: MORPHINE SULFATE 20 MG/ML CONC SOLUTION. SL PRN ×2 (05:07→12:24)
[2020-03-07 07:00] VITALS: BP 153/78
[2020-03-07] MEDS: fentaNYL 50MCG/HR PATCH 1 PATCH PATCH.TD72 TD SCH (07:40)
[2020-03-07] MEDS: LIDOCAINE (700MG/PATCH) PATCH. TD SCH (07:40)
[2020-03-07] MEDS: MORPHINE SULFATE 2 MG/ML VIAL. IV PRN ×2 (07:41→10:51)
[2020-03-07] MEDS: PANTOPRAZOLE IV PUSH 40 MG VIAL. IVP SCH (07:41)
[2020-03-07] MEDS: methylPREDNISolone SOD SUCC PF 40 MG/ML VIAL. IV SCH (07:41)
[2020-03-07] MEDS: IPRATRPIUM/ALBUTEROL 0.5/2.5MG 3 ML NEBU. NEB SCH ×2 (08:04→11:35)
--- NOTE | 2020-03-07 08:29 | PDOC ---
PULMONARY PROGRESS NOTES Subjective on bipap, weaker, has sob, told night rn, wants to hospice Vitals Vital Signs Date Time Temp Pulse Resp B/P (MAP) Pulse Ox O2 Delivery O2 Flow Rate FiO2 03/07/20 08:04 96 BiPAP/CPAP 03/07/20 07:41 15.0 03/07/20 05:07 20 03/06/20 19:22 98.2 94 159/78 (105) 98.2 ROS: No Nausea, No Abdominal Pain, No Increase Cough General: Alert Lungs: Crackles Cardiovascular: S1, S2 Abdomen: Soft Neuro Exam: Alert Extremities: No Edema Skin: Warm Labs Laboratory Tests Test 03/06/20 05:00 White Blood Count 23.8 x10^3/uL (4.0-11.0) Red Blood Count 2.99 x10^6/uL (3.50-5.40) Hemoglobin 8.6 g/dL (12.0-15.5) Hematocrit 26.8 % (36.0-47.0) Mean Corpuscular Volume 90 fL (79-100) Mean Corpuscular Hemoglobin 29 pg (25-35) Mean Corpuscular Hemoglobin Concent 32 g/dL (31-37) Red Cell Distribution Width 18.0 % (11.5-14.5) Platelet Count 4380 x10^3/uL (140-400) Neutrophils (%) (Auto) 87 % (31-73) Lymphocytes (%) (Auto) 6 % (24-48) Monocytes (%) (Auto) 7 % (0-9) Eosinophils (%) (Auto) 0 % (0-3) Basophils (%) (Auto) 1 % (0-3) Neutrophils # (Auto) 20.5 x10^3/uL (1.8-7.7) Lymphocytes # (Auto) 1.3 x10^3/uL (1.0-4.8) Monocytes # (Auto) 1.7 x10^3/uL (0.0-1.1) Eosinophils # (Auto) 0.0 x10^3/uL (0.0-0.7) Basophils # (Auto) 0.2 x10^3/uL (0.0-0.2) Activated Partial Thromboplast Time 43 SEC (24-38) Sodium Level 143 mmol/L (136-145) Potassium Level 4.4 mmol/L (3.5-5.1) Chloride Level 107 mmol/L (98-107) Carbon Dioxide Level 25 mmol/L (21-32) Anion Gap 11 (6-14) Blood Urea Nitrogen 30 mg/dL (7-20) Creatinine 1.1 mg/dL (0.6-1.0) Estimated GFR (Cockcroft-Gault) 46.8 BUN/Creatinine Ratio 27 (6-20) Glucose Level 162 mg/dL (70-99) Uric Acid 9.8 mg/dL (2.6-6.0) Calcium Level 8.2 mg/dL (8.5-10.1) Total Bilirubin 0.4 mg/dL (0.2-1.0) Aspartate Amino Transf (AST/SGOT) 97 U/L (15-37) Alanine Aminotransferase (ALT/SGPT) 500 U/L (14-59) Alkaline Phosphatase 93 U/L (46-116) Creatine Kinase 75 U/L (26-192) Total Protein 6.0 g/dL (6.4-8.2) Albumin 2.5 g/dL (3.4-5.0) Albumin/Globulin Ratio 0.7 (1.0-1.7) Medications Active Scripts Medications Dose Route/Sig Max Daily Dose Days Date Category Dose Instructions Atrovent Hfa (Ipratropium [place]ann[place]ora) 12.9 Gm Hfa.aer.ad 2 Puff IH BID 03/03/20 Reported Lidocaine-Hc 3-1% Cream Kit (Hydrocortisone Ac/Lidocaine) 1 Each Kit 1 Each RC TID 03/03/20 Reported Tramadol Hcl 50 Mg Tablet 50 Mg PO Q4HRS PRN 03/03/20 Reported Systane 0.3-0.4% Eye Drops (Propylene Glycol/Peg 400) 15 Ml Drops 1 Drop EACHEYE QID 03/03/20 Reported Colace (Docusate Sodium) 100 Mg Capsule 200 Mg PO DAILY 03/03/20 Reported Ativan (Lorazepam) 0.5 Mg Tablet 0.5 Mg PO HS 03/03/20 Reported Lidocaine PATCH (Lidocaine) 1 Each Adh..patch 1 Each TP DAILY 03/03/20 Reported REMOVE AFTER 12 HOURS Multivitamins With Minerals (Multivitamin With Minerals) 1 Each Tablet 1 Tab PO DAILY 30 03/03/20 Reported Zyrtec (Cetirizine Hcl) 10 Mg Tablet 1 Tab PO DAILY 03/03/20 Reported Breo Ellipta 100-25 Mcg Inh (Fluticasone/Vilanterol) 1 Each Aer.pow.ba 1 Puff IH DAILY 03/03/20 Reported Dulcolax (Bisacodyl) 10 Mg Supp.rect 1 Supp RC DAILY 10 03/03/20 Reported Amlodipine Besylate 2.5 Mg Tablet 2.5 Mg PO DAILY 03/03/20 Reported Trazodone Hcl 100 Mg Tablet 1 Tab PO QHS 03/03/20 Reported Montelukast Sodium Tablet (Montelukast Sodium) 10 Mg Tablet 10 Mg PO HS 03/03/20 Reported Mylanta Maximum Strength Liq (Mag Hydrox/Aluminum Hyd/Simeth) 355 Ml Oral.susp 30 Ml PO PRN Q4HRS PRN 03/03/20 Reported Impression . IMPRESSION: 1. Wff-bc-ieybnxau arrest, unclear if she had total cardiopulmonary arrest. 2. Abnormal CT chest revealing bilateral interstitial and alveolar type of infiltrates. 3. Acute hypoxemic respiratory failure. 4. Thrombocytosis. 5. Leukocytosis. 6. Elevated liver chemistries. 7. Elevated troponin. 8. History of abdominal distention. Plan . cont bipap, setting reviewed pt requested hospice per primary follow medical oncology input fentanyl patch at 50 mcg for pain, avoid over sedation cont abx SARS-CoV-2 neg BD change solumedrol to 40 bid Follow cardiology input GI following Clinical suspicion for PE is low, unable to perform CT angiogram secondary to renal insufficiency discussed w INOCENCIO Keith MD Mar 07, 2020 08:29
--- NOTE | 2020-03-07 10:38 | PDOC ---
Subjective: Subjective: Wants a narrow pillow for her back. Objective: Objective: D/w nurse - to have Hospice discussion. Vital Signs: Vital Signs Date Time Temp Pulse Resp B/P (MAP) Pulse Ox O2 Delivery O2 Flow Rate FiO2 03/07/20 08:08 Bi-pap 03/07/20 08:04 96 03/07/20 07:41 15.0 03/07/20 07:00 97.7 87 22 153/78 (103) 97.7 Imaging: Abd US 03/05 Liver parenchymal echogenicity appears normal. The biliary tree does not appear dilated. Along the undersurface of the right lobe of the liver, there is an oblong area of mixed echogenicity displacing the kidney inferiorly. This region has a small amount of internal blood flow. It measures about 12 cm in length and 5 cm across. The gallbladder is free of stones or wall thickening. The kidneys are relatively small and has some cortical thinning. No solid mass or obstruction is seen. There is a small left renal cyst. Her graft the pancreas appears normal. The abdominal aorta and inferior vena cava appear normal in their visualized segments. Spleen was not well seen, but does not appear enlarged. IMPRESSION: There is abnormality along the undersurface of the right lobe of the liver. This corresponds to the area of mixed density on CT, and likely indicates a region of hemorrhage in the liver. PE: GEN: ill LUNGS: BiPAP HEART: RR ABD: seems softer but still distended and uncomfortable NEURO/PSYCH: awake, moaning A/P: Resp failure Thrombocytosis Transaminitis - better Abdominal distention/pain Abnormal liver imaging COVID-19 negative -- Plans as above, other per Dr. Valencia. Justicifation of Admission Dx: Justifications for Admission: Justification of Admission Dx: Yes MIGUEL ÁNGEL RODRIGUES Mar 07, 2020 10:38
--- NOTE | 2020-03-07 10:45 | PDOC ---
LISSMINOR JADE 03/07/20 1045: CARDIO Progress Notes Date and Time Date of Service 03/07/20 Time of Evaluation 1120 Subjective Subjective: No Chest Pain, Other (on BiPAP) Vitals Vitals Vital Signs Date Time Temp Pulse Resp B/P (MAP) Pulse Ox O2 Delivery O2 Flow Rate FiO2 03/07/20 08:08 Bi-pap 03/07/20 08:04 96 03/07/20 07:41 15.0 03/07/20 07:00 97.7 87 22 153/78 (103) 97.7 Weight Weight [ ] Input and Output Intake and Output Intake and Output 03/07/20 07:00 Intake Total 330 ml Output Total 900 ml Balance -570 ml Intake Oral 330 ml Output Urine Total 900 ml Physical Exam HEENT: Neck Supple W Full Motion Chest: Symmetric LUNGS: Other (BiPAP) Heart: RRR (SR), other (Chest wall tenderness) Abdomen: Other (tender) Extremities: Other (1+ bilateral LE pitting edema) Neurology: alert Assessment Assessment 1. Acute respiratory failure with possible pneumonia. remain on BiPAP 2. Severe thrombocythemia: PLT 5410 down to 4380. Was referred to hematology, but had not been seen 3. Severe transaminitis, abd pain. Abnormal imagining 4. Leukocytosis 5. Diastolic CHF 6. ROBSON with hyperkalemia; improved 7. Mild troponin elevation; most probably type II, demand ischemia 8. Hypertension 9. Hyperlipidemia Recommendations Supportive care Plans to return to [facility] with Hospice services Justicifation of Admission Dx: Justifications for Admission: Justification of Admission Dx: Yes JACQUE HU MD 03/07/20 1635: CARDIO Progress Notes Assessment Assessment Patient seen and examined. Agree with WING MAILER MACHINE OPERATOR's assessment and plan. Needing BiPAP for acute respiratory failure/pneumonia -pulmonary team following Slight troponin elevation demand ischemia 2D echo showed normal LV function without any wall motion abnormalities Planning hospice MINOR LEIJA APRN Mar 07, 2020 10:45 JACQUE HU MD Mar 07, 2020 16:35
--- NOTE | 2020-03-07 11:19 | NUR ---
SS following for discharge planning. SS reviewed pt chart and discussed with pt RN. Pt is sister from [facility], . Pt is currently on BIPAP. SS spoke with RN at [facility] and [facility] would like pt to return today with [facility], ; fax [phone]. SS phoned and faxed referral to [facility]. SS currently awaiting discharge orders for hospice. [facility] requested ambulance transportation when services have been arranged. Pt's RN notified. SS will continue to follow for discharge planning.
[2020-03-07 11:21] LABS: NEUT % 87 % (31-73)
[2020-03-07 11:22] LABS: PLATELET COUNT 4380 x10^3/uL (140-400)
[2020-03-07] MEDS ORDERED: MORP100S3 SL (15:52)
[2020-03-07] MEDS ORDERED: FENT1PAT17 TD (15:52)
[2020-03-07] MEDS ORDERED: LORA2ORA7 SL (15:52)
--- NOTE | 2020-03-07 15:55 | NUR ---
SS following up with discharge planning. Pt will discharge today and return to [facility], ; fax [phone], with [facility], ; fax [phone], at 1600 via [facility] transport. Discharge orders and clinical faxed to [facility] and [facility]. Pt's RN notified.
--- NOTE | 2020-03-07 15:56 | SNU/HH DC ---
DISCHARGE ORDERS DISCHARGE INFORMATION: DISCHARGE DATE: Mar 07, 2020 FINAL DIAGNOSIS Problems Medical Problems: (1) Cardiac arrest Status: Acute (2) Thrombocythemia Status: Acute CONDITION ON DISCHARGE: Guarded CODE STATUS: Code Status: DNR/DNI HOSPICE: HOSPICE: Yes HOSPICE EVAL & TREAT: Yes POST DISCHARGE ORDERS: ACTIVITY ORDERS: No restrictions WEIGHT BEARING STATUS: No restrictions DIET AFTER DISCHARGE: Regular WOUND/INCISION CARE: Ice to area for comfort CHECKS AFTER DISCHARGE: CHECKS AFTER DISCHARGE: Check blood press - daily, Check your Temp as needed TREATMENT/EQUIPMENT ORDERS: ADAPTIVE EQUIPMENT NEEDED: None RESPIRATORY EQUIPMENT NEEDED: Oxygen, Nebulizer, BiPAP (18/8, Rate of 20, FI02 60%. AVAPS Target TV 450, Rate 20 /min EPAP 8, 60% FiO2) DISCHARGE MEDICATIONS: Home Meds Active Scripts Lorazepam (LORAZEPAM INTENSOL ) 2 Mg/1 Ml Oral.conc, 1 MG SL PRN Q6HRS PRN for ANXIETY / AGITATION for 30 Days, #30 ML Prov:SIMON ZHANG MD 03/07/20 Morphine Sulfate (MORPHINE SULFATE) 100 Mg/5 Ml Solution, 4 MG SL PRN Q3HRS PRN for MODERATE TO SEVERE PAIN for 30 Days, #30 ML Prov:SIMON ZHANG MD 03/07/20 Fentanyl (FENTANYL 50mcg/hr) 1 Each Patch.td72, 1 PATCH TD Q3DAYS for Chronic pain for 30 Days, #10 PATCH Prov:SIMON ZHANG MD 03/07/20 Reported Medications Furosemide (FUROSEMIDE) 40 Mg Tablet, 40 MG PO DAILY for CHF, TAB 03/03/20 Acetaminophen (ACETAMINOPHEN) 325 Mg/10.15 Ml Solution, 650 MG PO BID for PAIN, MISC 03/03/20 Omeprazole (OMEPRAZOLE) 20 Mg Capsule.dr, 20 MG PO DAILY for GERD, CAP 03/03/20 Magnesium Carbonate/Al Hydrox (GAVISCON ES TABLET CHEW) 1 Each Tab.chew, 1 EACH PO PRN Q6HRS PRN for GERD, TAB.CHEW 03/03/20 Polyethylene Glycol 3350 (MIRALAX) 17 Gm Powd.pack, 1 PACKET PO BID for constipation for 2 Days, #4 PACKET 0 Refills dissolve in water 03/03/20 Phenyleph/Pramoxin/Glycr/W.pet (PREPARATION H CREAM) 26 Gm Cream..g., 26 GM RC PRN PRN for PAIN, EACH 03/03/20 Ipratropium [place] (ATROVENT HFA) 12.9 Gm Hfa.aer.ad, 2 PUFF IH BID for ALLERGIC RHINITIS, #12.9 GM 5 Refills 03/03/20 Hydrocortisone Ac/Lidocaine (LIDOCAINE-HC 3-1% CREAM KIT) 1 Each Kit, 1 EACH RC TID for BELOW NOSE, EACH 03/03/20 Propylene Glycol/Peg 400 (SYSTANE 0.3-0.4% EYE DROPS) 15 Ml Drops, 1 DROP EACHEYE QID for ALLERGIC RHINITIS , #30 ML 5 Refills 03/03/20 Docusate Sodium (COLACE) 100 Mg Capsule, 200 MG PO DAILY for CONSTIPATION , CAP 03/03/20 Lidocaine (Lidocaine PATCH ) 1 Each Adh..patch, 1 EACH TP DAILY for FOR LOCAL PAIN, PATCH REMOVE AFTER 12 HOURS 03/03/20 Multivitamin With Minerals (MULTIVITAMINS WITH MINERALS) 1 Each Tablet, 1 TAB PO DAILY for NUTRITIONAL DEFICIENCY for 30 Days, #30 TAB 0 Refills 03/03/20 Cetirizine Hcl (ZYRTEC) 10 Mg Tablet, 1 TAB PO DAILY for ALLERGIC RHINITIS, #30 TAB 2 Refills 03/03/20 Fluticasone/Vilanterol (BREO ELLIPTA 100-25 MCG INH) 1 Each Aer.pow.ba, 1 PUFF IH DAILY for COPD, INHALER 03/03/20 Bisacodyl (DULCOLAX) 10 Mg Supp.rect, 1 SUPP RC DAILY for constipation for 10 Days, #10 SUPP 0 Refills 03/03/20 Montelukast Sodium (MONTELUKAST SODIUM TABLET ) 10 Mg Tablet, 10 MG PO HS for FOR ASTHMA, TAB 0 Refills 03/03/20 Mag Hydrox/Aluminum Hyd/Simeth (Mylanta Maximum Strength Liq) 355 Ml Oral.susp, 30 ML PO PRN Q4HRS PRN for GERD, MISC 03/03/20 Discontinued Reported Medications Aspirin (ASPIRIN) 325 Mg Tablet, 1 TAB PO DAILY for PROPHYLACTIC, #30 TAB 5 Refills 03/03/20 Baclofen (BACLOFEN) 10 Mg Tablet, 5 MG PO BID for MUSCLE RELAXER, #30 TAB 0 Refills 03/03/20 Tramadol Hcl (TRAMADOL HCL) 50 Mg Tablet, 50 MG PO Q4HRS PRN for PAIN, TAB 03/03/20 Lorazepam (ATIVAN) 0.5 Mg Tablet, 0.5 MG PO HS for ANXIETY, TAB 03/03/20 Amlodipine Besylate (AMLODIPINE BESYLATE) 2.5 Mg Tablet, 2.5 MG PO DAILY for HTN, TAB 03/03/20 Trazodone Hcl (TRAZODONE HCL) 100 Mg Tablet, 1 TAB PO QHS for INSOMNIA, #30 TAB 1 Refill 03/03/20 SIMON ZHANG MD Mar 07, 2020 15:56
--- NOTE | 2020-03-07 16:02 | PDOC ---
PROGRESS NOTES Chief Complaint Chief Complaint A/P: pulseless Apneic episode - s/p CPR with immediate return of spontaneous respiratory activity and pulse. conversant. No meds given during episode Acute on Chronic hypoxic respiratory failure - on chronic O2, now on 15 liters likely secondary to pulmonary contusions from CPR. Will consult pulmonology for further recs. COVID-19 testing is negative Thrombocytosis - likely 2/2 malignancy, will consult hematology/oncology Transaminitis - with abnormalities in liver this could be shock liver, but more likely has an active hepatitis process less likely viral more likely from underlying malignancy Acute encephalopathy - likely 2/2 resuscitative efforts. Will monitor mental status, has had some right sided numbness recently. CT head when stable Liver mass - likely from malignancy, will consult GI, trend transaminases Pulmonary infiltrates - likely pulmonary contusions Mediastinal lymphadenopathy - concerning for underling malignancy given her abnormal CT abdomen findings Elevated INR - no anticoagulants. Likely related to liver disease, shock liver vs infiltrative disease. 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 According to EMS patient was at the diagnostic center getting a CT scan of her abdomen and pelvis when she became apneic and lost a pulse. They did compressions for 9 minutes, no medications administered. EMS notes on arrival patient had a pulse and was breathing on her own and was able to talk. She is complaining of shortness of breath and abdominal and chest pain. She tells me she is tired and a little out of sorts. Does note she has had some right-sided numbness that been intermittent recently and is not told the other physicians about this is a little concerned. She does note that prior to this episode she did not have any chest pain. She has been struggling with abdominal pain and swelling and that is the reason she was going for CT scan. She has had dysuria and constipation for the past month. Labs significant for WBC 24.9, hemoglobin 11.3, platelets 5410, INR 1.4, AST 917, ALT 1067, NA 134, K3.4, BUN 18, CR 1.2 Admitted for further care. 03/04: Seen by pulm, Hematology/oncology, cardiology 03/05: Still hypoxic to 86% on facemask, back on BIPAP. Still with chest pain, slight cough, large abdomen. 03/06: Overnight unable to wean off BIPAP overnight. She is in pain, anxious. Asking for referral to hospice, but does seem intermittently confused. WBC still 23K, platelets > 4000. Afebrile. Spoke with her DPOA, [facility] and wishes for hospice back in her SNF, hopefully in next 24 hours. Still hypoxic, able to take off BIPAP to facemask. Pain better controlled on fentanyl patch and roxanol as well as respirations with ativan intensol. Vitals Vitals Vital Signs Date Time Temp Pulse Resp B/P (MAP) Pulse Ox O2 Delivery O2 Flow Rate FiO2 03/07/20 15:18 96 BiPAP/CPAP 03/07/20 07:41 15.0 03/07/20 07:00 97.7 87 22 153/78 (103) 97.7 Physical Exam Physical Exam GENERAL: NAD, Alert HEENT: PERRL, OC/OP NECK: Supple, no JVD, no LN LUNGS: Clear HEART: S1S2, no gallop, no murmur ABD: Soft, NT, no organomegaly, no rebound EXT: No edema, no cyanosis TIRE INSPECTOR: Alert, oriented x 3, no focal neurologic deficit SKIN: No rash IV: ok General: No acute distress Heart: Regular rate Lungs: Crackles Abdomen: Normal bowel sounds, Other (Distended, tender to palpation diffusely, no rebound.) Extremities: No clubbing, No edema Skin: No rashes Assessment and Plan Assessmemt and Plan Problems Medical Problems: (1) Cardiac arrest Status: Acute (2) Thrombocythemia Status: Acute Comment Review of Relevant I have reviewed the following items juan (where applicable) has been applied. Labs Laboratory Tests Test 03/06/20 05:00 White Blood Count 23.8 x10^3/uL (4.0-11.0) Red Blood Count 2.99 x10^6/uL (3.50-5.40) Hemoglobin 8.6 g/dL (12.0-15.5) Hematocrit 26.8 % (36.0-47.0) Mean Corpuscular Volume 90 fL (79-100) Mean Corpuscular Hemoglobin 29 pg (25-35) Mean Corpuscular Hemoglobin Concent 32 g/dL (31-37) Red Cell Distribution Width 18.0 % (11.5-14.5) Platelet Count 4380 x10^3/uL (140-400) Neutrophils (%) (Auto) 87 % (31-73) Lymphocytes (%) (Auto) 6 % (24-48) Monocytes (%) (Auto) 7 % (0-9) Eosinophils (%) (Auto) 0 % (0-3) Basophils (%) (Auto) 1 % (0-3) Neutrophils # (Auto) 20.5 x10^3/uL (1.8-7.7) Lymphocytes # (Auto) 1.3 x10^3/uL (1.0-4.8) Monocytes # (Auto) 1.7 x10^3/uL (0.0-1.1) Eosinophils # (Auto) 0.0 x10^3/uL (0.0-0.7) Basophils # (Auto) 0.2 x10^3/uL (0.0-0.2) Activated Partial Thromboplast Time 43 SEC (24-38) Sodium Level 143 mmol/L (136-145) Potassium Level 4.4 mmol/L (3.5-5.1) Chloride Level 107 mmol/L (98-107) Carbon Dioxide Level 25 mmol/L (21-32) Anion Gap 11 (6-14) Blood Urea Nitrogen 30 mg/dL (7-20) Creatinine 1.1 mg/dL (0.6-1.0) Estimated GFR (Cockcroft-Gault) 46.8 BUN/Creatinine Ratio 27 (6-20) Glucose Level 162 mg/dL (70-99) Uric Acid 9.8 mg/dL (2.6-6.0) Calcium Level 8.2 mg/dL (8.5-10.1) Total Bilirubin 0.4 mg/dL (0.2-1.0) Aspartate Amino Transf (AST/SGOT) 97 U/L (15-37) Alanine Aminotransferase (ALT/SGPT) 500 U/L (14-59) Alkaline Phosphatase 93 U/L (46-116) Creatine Kinase 75 U/L (26-192) Total Protein 6.0 g/dL (6.4-8.2) Albumin 2.5 g/dL (3.4-5.0) Albumin/Globulin Ratio 0.7 (1.0-1.7) Medications Current Medications Morphine Sulfate (Morphine Sulfate) 5 mg 1X ONCE IV Last administered on 03/03/20at 11:25; Start 03/03/20 at 11:00; Stop 03/03/20 at 11:23; Status DC Ondansetron HCl (Zofran) 4 mg 1X ONCE IVP Last administered on 03/03/20at 11:46; Start 03/03/20 at 11:15; Stop 03/03/20 at 11:23; Status DC Morphine Sulfate (Morphine Sulfate) 5 mg 1X ONCE IV Last administered on 03/03/20at 11:46; Start 03/03/20 at 11:45; Stop 03/03/20 at 11:46; Status DC Morphine Sulfate (Morphine Sulfate) 5 mg 1X ONCE IV Last administered on 03/03/20at 13:39; Start 03/03/20 at 13:30; Stop 03/03/20 at 13:31; Status DC Fentanyl Citrate (Fentanyl 2ml Vial) 25 mcg PRN Q2HR PRN IVP PAIN Last administered on 03/04/20at 06:09; Start 03/03/20 at 15:45; Stop 03/04/20 at 07:56; Status DC Tramadol HCl (Ultram) 50 mg PRN Q6HRS PRN PO MODERATE - SEVERE PAIN Last admini stered on 03/04/20at 03:11; Start 03/03/20 at 16:00; Stop 03/06/20 at 12:53; Status DC Pantoprazole Sodium (PROTONIX VIAL for IV PUSH) 40 mg DAILYAC IVP Last administered on 03/07/20at 07:41; Start 03/03/20 at 16:30 Acetaminophen (Tylenol) 1,000 mg PRN Q6HRS PRN PO MILD PAIN 1-3 Last administered on 03/04/20at 03:11; Start 03/03/20 at 16:45 Ringer's Solution 1,000 ml @ 100 mls/hr Q10H IV Last administered on 03/03/20at 21:55; Start 03/03/20 at 17:15; Stop 03/04/20 at 10:17; Status DC Enoxaparin Sodium (Lovenox 40mg Syringe) 40 mg BID SQ ; Start 03/03/20 at 17:00; Stop 03/03/20 at 17:51; Status DC Levofloxacin/ Dextrose 100 ml @ 100 mls/hr Q24H IV Last administered on 03/03/20at 17:55; Start 03/03/20 at 18:00; Stop 03/03/20 at 18:59; Status DC Furosemide (Lasix) 20 mg 1X ONCE IVP Last administered on 03/03/20at 17:52; Start 03/03/20 at 18:00; Stop 03/03/20 at 18:01; Status DC Levofloxacin/ Dextrose 50 ml @ 50 mls/hr Q24H IV Last administered on 03/05/20at 17:29; Start 03/04/20 at 18:00; Stop 03/06/20 at 12:53; Status DC Aspirin (Ecotrin) 325 mg BID PO Last administered on 03/04/20at 08:10; Start 03/03/20 at 21:00; Stop 03/04/20 at 11:00; Status DC Fentanyl Citrate (Fentanyl 2ml Vial) 50 mcg PRN Q1HR PRN IVP SEVERE PAIN 7-10 Last administered on 03/06/20at 11:07; Start 03/04/20 at 08:00; Stop 03/06/20 at 12:49; Status DC Fentanyl Citrate (Fentanyl 2ml Vial) 100 mcg STK-MED ONCE .ROUTE ; Start 03/04/20 at 08:01; Stop 03/04/20 at 08:02; Status DC Furosemide (Lasix) 40 mg 1X ONCE IVP Last administered on 03/04/20at 10:22; Start 03/04/20 at 10:15; Stop 03/04/20 at 10:20; Status DC Sodium Chloride 1,000 ml @ 75 mls/hr [id number] IV Last administered on 03/06/20at 08:53; Start 03/04/20 at 10:15; Stop 03/06/20 at 12:49; Status DC Fentanyl (Duragesic 50mcg/ Hr Patch) 1 patch Q3DAYS TD Last administered on 03/07/20at 07:40; Start 03/04/20 at 11:00 Lidocaine (Lidoderm) 1 patch DAILY TD Last administered on 03/07/20at 07:40; Start 03/04/20 at 11:00 Miscellaneous (Lidoderm Patch Removal) 1 ea QHS MC Last administered on 03/05/20 at 21:00; Start 03/04/20 at 21:00 Enoxaparin Sodium (Lovenox 30mg Syringe) 30 mg Q24H SQ Last administered on 03/06/20at 10:38; Start 03/04/20 at 11:00; Stop 03/06/20 at 12:53; Status DC Hydralazine HCl (Apresoline Inj) 10 mg PRN Q4HRS PRN IVP ELEVATED BP, SEE COMMENTS Last administered on 03/06/20at 10:36; Start 03/04/20 at 12:30; Stop 03/06/20 at 12:53; Status DC Aspirin (Ecotrin) 81 mg [id number] PO ; Start 03/04/20 at 13:00; Stop 03/06/20 at 12:53; Status DC Atorvastatin Calcium (Lipitor) 10 mg QHS PO ; Start 03/04/20 at 21:00; Stop 03/06/20 at 12:53; Status DC Ketorolac Tromethamine (Toradol 15mg Vial) 15 mg PRN Q8HRS PRN IVP MODERATE PAIN 4-6 Last administered on 03/06/20at 08:43; Start 03/04/20 at 18:15; Stop 03/06/20 at 12:53; Status DC Methylprednisolone Sodium Succinate (SOLU-Medrol 125MG VIAL) 125 mg BID IV Last administered on 03/05/20at 08:27; Start 03/04/20 at 21:00; Stop 03/05/20 at 17:07; Status DC Albuterol/ Ipratropium (Duoneb) 3 ml TID NEB Last administered on 03/07/20at 11:35; Start 03/04/20 at 21:00 Albuterol/ Ipratropium (Duoneb) 3 ml PRN Q2HRS NEB ; Start 03/04/20 at 18:15; Stop 03/04/20 at 18:27; Status DC Albuterol Sulfate (Ventolin Neb Soln) 2.5 mg PRN Q2HR PRN NEB SHORTNESS OF BREATH; Start 03/04/20 at 18:30 Lorazepam (Ativan Inj) 1 mg PRN Q6HRS PRN IVP ANXIETY / AGITATION Last administered on 03/07/20at 12:24; Start 03/05/20 at 02:45 Lactobacillus Rhamnosus (Culturelle) 1 cap BID PO ; Start 03/05/20 at 21:00; Status Cancel Methylprednisolone Sodium Succinate (SOLU-Medrol 40MG VIAL) 40 mg BID IV Last administered on 03/07/20at 07:41; Start 03/05/20 at 21:00 Morphine Sulfate (Roxanol Conc) 4 mg PRN Q3HRS PRN SL MODERATE TO SEVERE PAIN Last administered on 03/07/20at 12:24; Start 03/06/20 at 12:30 Lorazepam (Ativan Intensol) 1 mg PRN Q6HRS PRN SL ANXIETY / AGITATION; Start 03/06/20 at 12:30 Morphine Sulfate (Morphine Sulfate) 2 mg PRN Q2HR PRN IV MODERATE TO SEVERE PAIN Last administered on 03/07/20at 10:51; Start 03/06/20 at 12:30 Active Scripts Active Lorazepam Intensol (Lorazepam) 2 Mg/1 Ml Oral.conc 1 Mg SL PRN Q6HRS PRN 30 Days Morphine Sulfate 100 Mg/5 Ml Solution 4 Mg SL PRN Q3HRS PRN 30 Days FENTANYL 50mcg/hr (Fentanyl) 1 Each Patch.td72 1 Patch TD Q3DAYS 30 Days Reported Furosemide 40 Mg Tablet 40 Mg PO DAILY Acetaminophen 325 Mg/10.15 Ml Solution 650 Mg PO BID Omeprazole 20 Mg Capsule.dr 20 Mg PO DAILY Gaviscon Es Tablet Chew (Magnesium Carbonate/Al Hydrox) 1 Each Tab.chew 1 Each PO PRN Q6HRS PRN Miralax (Polyethylene Glycol 3350) 17 Gm Powd.pack 1 Packet PO BID 2 Days dissolve in water Preparation H Cream (Phenyleph/Pramoxin/Glycr/W.pet) 26 Gm Cream..g. 26 Gm RC PRN PRN Atrovent Hfa (Ipratropium [place]) 12.9 Gm Hfa.aer.ad 2 Puff IH BID Lidocaine-Hc 3-1% Cream Kit (Hydrocortisone Ac/Lidocaine) 1 Each Kit 1 Each RC TID Systane 0.3-0.4% Eye Drops (Propylene Glycol/Peg 400) 15 Ml Drops 1 Drop EACHEYE QID Colace (Docusate Sodium) 100 Mg Capsule 200 Mg PO DAILY Lidocaine PATCH (Lidocaine) 1 Each Adh..patch 1 Each TP DAILY REMOVE AFTER 12 HOURS Multivitamins With Minerals (Multivitamin With Minerals) 1 Each Tablet 1 Tab PO DAILY 30 Days Zyrtec (Cetirizine Hcl) 10 Mg Tablet 1 Tab PO DAILY Breo Ellipta 100-25 Mcg Inh (Fluticasone/Vilanterol) 1 Each Aer.pow.ba 1 Puff IH DAILY Dulcolax (Bisacodyl) 10 Mg Supp.rect 1 Supp RC DAILY 10 Days Montelukast Sodium Tablet (Montelukast Sodium) 10 Mg Tablet 10 Mg PO HS Mylanta Maximum Strength Liq (Mag Hydrox/Aluminum Hyd/Simeth) 355 Ml Oral.susp 30 Ml PO PRN Q4HRS PRN Vitals/I & O Vital Sign - Last 24 Hours 03/06/20 03/06/20 03/06/20 03/06/20 17:50 19:22 20:00 20:05 Temp 98.2 98.2 Pulse 94 Resp 22 B/P (MAP) 159/78 (105) Pulse Ox 96 96 95 O2 Delivery BiPAP/CPAP BiPAP/CPAP Bi-pap BiPAP/CPAP 03/06/20 03/07/20 03/07/20 03/07/20 23:20 04:00 05:07 07:00 Temp 97.7 97.7 Pulse 87 Resp 20 22 B/P (MAP) 153/78 (103) Pulse Ox 95 94 97 97 O2 Delivery BiPAP/CPAP BiPAP/CPAP BiPAP/CPAP BiPAP/CPAP 03/07/20 03/07/20 03/07/20 03/07/20 07:40 07:41 08:04 08:08 Pulse Ox 96 96 96 O2 Delivery BiPAP/CPAP BiPAP/CPAP BiPAP/CPAP Bi-pap O2 Flow Rate 15.0 15.0 03/07/20 03/07/20 03/07/20 03/07/20 10:51 11:36 12:24 15:18 Pulse Ox 95 92 96 O2 Delivery BiPAP/CPAP BiPAP/CPAP BiPAP/CPAP BiPAP/CPAP Intake and Output 03/06/20 03/06/20 03/07/20 15:00 23:00 07:00 Intake Total 0 ml 300 ml 30 ml Output Total 500 ml 400 ml Balance 0 ml -200 ml -370 ml Justicifation of Admission Dx: Justifications for Admission: Justification of Admission Dx: Yes SIMON ZHANG MD Mar 07, 2020 16:02
--- NOTE | 2020-03-07 16:04 | PDOC3 ---
Discharge Summary Visit Information Date of Admission: Mar 03, 2020 Date of Discharge: Mar 07, 2020 Admitting Diagnosis: Cardiac Arrest Final Diagnosis Problems Medical Problems: (1) Cardiac arrest Status: Acute (2) Thrombocythemia Status: Acute Brief Hospital Course Allergies Allergies Coded Allergies Type Severity Reaction Last Updated Verified Penicillins Allergy Intermediate rash 03/03/20 Yes Vital Signs Vital Signs Date Time Temp Pulse Resp B/P (MAP) Pulse Ox O2 Delivery O2 Flow Rate FiO2 03/07/20 15:18 96 BiPAP/CPAP 03/07/20 07:41 15.0 03/07/20 07:00 97.7 87 22 153/78 (103) 97.7 Lab Results Laboratory Tests Test 03/06/20 05:00 White Blood Count 23.8 x10^3/uL (4.0-11.0) Red Blood Count 2.99 x10^6/uL (3.50-5.40) Hemoglobin 8.6 g/dL (12.0-15.5) Hematocrit 26.8 % (36.0-47.0) Mean Corpuscular Volume 90 fL (79-100) Mean Corpuscular Hemoglobin 29 pg (25-35) Mean Corpuscular Hemoglobin Concent 32 g/dL (31-37) Red Cell Distribution Width 18.0 % (11.5-14.5) Platelet Count 4380 x10^3/uL (140-400) Neutrophils (%) (Auto) 87 % (31-73) Lymphocytes (%) (Auto) 6 % (24-48) Monocytes (%) (Auto) 7 % (0-9) Eosinophils (%) (Auto) 0 % (0-3) Basophils (%) (Auto) 1 % (0-3) Neutrophils # (Auto) 20.5 x10^3/uL (1.8-7.7) Lymphocytes # (Auto) 1.3 x10^3/uL (1.0-4.8) Monocytes # (Auto) 1.7 x10^3/uL (0.0-1.1) Eosinophils # (Auto) 0.0 x10^3/uL (0.0-0.7) Basophils # (Auto) 0.2 x10^3/uL (0.0-0.2) Activated Partial Thromboplast Time 43 SEC (24-38) Sodium Level 143 mmol/L (136-145) Potassium Level 4.4 mmol/L (3.5-5.1) Chloride Level 107 mmol/L (98-107) Carbon Dioxide Level 25 mmol/L (21-32) Anion Gap 11 (6-14) Blood Urea Nitrogen 30 mg/dL (7-20) Creatinine 1.1 mg/dL (0.6-1.0) Estimated GFR (Cockcroft-Gault) 46.8 BUN/Creatinine Ratio 27 (6-20) Glucose Level 162 mg/dL (70-99) Uric Acid 9.8 mg/dL (2.6-6.0) Calcium Level 8.2 mg/dL (8.5-10.1) Total Bilirubin 0.4 mg/dL (0.2-1.0) Aspartate Amino Transf (AST/SGOT) 97 U/L (15-37) Alanine Aminotransferase (ALT/SGPT) 500 U/L (14-59) Alkaline Phosphatase 93 U/L (46-116) Creatine Kinase 75 U/L (26-192) Total Protein 6.0 g/dL (6.4-8.2) Albumin 2.5 g/dL (3.4-5.0) Albumin/Globulin Ratio 0.7 (1.0-1.7) Brief Hospital Course 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 According to EMS patient was at the diagnostic center getting a CT scan of her abdomen and pelvis when she became apneic and lost a pulse. They did compressions for 9 minutes, no medications administered. EMS notes on arrival patient had a pulse and was breathing on her own and was able to talk. She is complaining of shortness of breath and abdominal and chest pain. She tells me she is tired and a little out of sorts. Does note she has had some right-sided numbness that been intermittent recently and is not told the other physicians about this is a little concerned. She does note that prior to this episode she did not have any chest pain. She has been struggling with abdominal pain and swelling and that is the reason she was going for CT scan. She has had dysuria and constipation for the past month. Labs significant for WBC 24.9, hemoglobin 11.3, platelets 5410, INR 1.4, AST 917, ALT 1067, NA 134, K3.4, BUN 18, CR 1.2 Admitted for further care. 03/04: Seen by pulm, Hematology/oncology, cardiology 03/05: Still hypoxic to 86% on facemask, back on BIPAP. Still with chest pain, slight cough, large abdomen. 03/06: Overnight unable to wean off BIPAP overnight. She is in pain, anxious. Asking for referral to hospice, but does seem intermittently confused. WBC still 23K, platelets > 4000. Afebrile. Spoke with her DPOA, [facility] and wishes for hospice back in her SNF, hopefully in next 24 hours. Negative COVID 19. Still hypoxic, able to take off BIPAP to facemask. Pain better controlled on fentanyl patch and roxanol as well as respirations with ativan intensol. Consults: Heme/onc, Pulm, Cardiology Problem List: pulseless Apneic episode - s/p CPR with immediate return of spontaneous respiratory activity and pulse. conversant. No meds given during episode Acute on Chronic hypoxic respiratory failure - on chronic O2, now on 15 liters likely secondary to pulmonary contusions from CPR. Will consult pulmonology for further recs. COVID-19 testing is negative Thrombocytosis - likely 2/2 malignancy, will consult hematology/oncology Transaminitis - with abnormalities in liver this could be shock liver, but more likely has an active hepatitis process less likely viral more likely from underlying malignancy Acute encephalopathy - likely 2/2 resuscitative efforts. Will monitor mental status, has had some right sided numbness recently. CT head when stable Liver mass - likely from malignancy, will consult GI, trend transaminases Pulmonary infiltrates - likely pulmonary contusions Mediastinal lymphadenopathy - concerning for underling malignancy given her abnormal CT abdomen findings Elevated INR - no anticoagulants. Likely related to liver disease, shock liver vs infiltrative disease. Will monitor liver function RBBB - will find prior EKG Constipation - stool softeners Osteoporosis - s/p left hip fracture and replacement Hypertension - cont meds Allergic rhinitis - cont meds Insomnia - trazodone prn B12 deficiency - replace NACHO - on O2 Chronic combined systolic and diastolic congestive heart failure - no echo available, per SNF records - will watch fluid status closely Anemia of chronic disease Greater than 30 minutes spent on d/c to SNF with hospice. patient is critically ill Discharge Information Condition at Discharge: Stable Follow Up: Weeks (1) Disposition/Orders: D/C to Another Facility Scheduled Acetaminophen (Acetaminophen) 325 Mg/10.15 Ml Solution, 650 MG PO BID for PAIN, (Reported) Entered as Reported by: EMILY HERNANDEZ RN on 03/03/201930 Last Taken: Unknown Dose on Unknown Date & Time Last Action: New Order on 03/03/201930 by EMILY HERNANDEZ RN Bisacodyl (Dulcolax) 10 Mg Supp.rect, 1 SUPP RC DAILY for constipation for 10 Days, #10 Ref 0 (Reported) Entered as Reported by: EMILY HERNANDEZ RN on 03/03/201638 Last Taken: Unknown Dose on Unknown Date & Time Last Action: New Order on 03/03/201638 by EMILY HERNANDEZ RN Cetirizine Hcl (Zyrtec) 10 Mg Tablet, 1 TAB PO DAILY for ALLERGIC RHINITIS, #30 Ref 2 (Reported) Entered as Reported by: EMILY HERNANDEZ RN on 03/03/201638 Last Taken: Unknown Dose on Unknown Date & Time Last Action: New Order on 03/03/201638 by EMILY HERNANDEZ RN Docusate Sodium (Colace) 100 Mg Capsule, 200 MG PO DAILY for CONSTIPATION , (Reported) Entered as Reported by: EMILY HERNANDEZ RN on 03/03/201638 Last Taken: Unknown Dose on Unknown Date & Time Last Action: New Order on 03/03/201638 by EMILY HERNANDEZ RN Fentanyl (FENTANYL 50mcg/hr) 1 Each Patch.td72, 1 PATCH TD Q3DAYS for Chronic pain for 30 Days, #10 Prescribed by: SIMON ZHANG MD on 03/07/20 1552 Fluticasone/Vilanterol (Breo Ellipta 100-25 Mcg Inh) 1 Each Aer.pow.ba, 1 PUFF IH DAILY for COPD, (Reported) Entered as Reported by: EMILY HERNANDEZ RN on 03/03/201638 Last Action: New Order on 03/03/201638 by EMILY HERNANDEZ RN Furosemide (Furosemide) 40 Mg Tablet, 40 MG PO DAILY for CHF, (Reported) Entered as Reported by: EMILY HERNANDEZ RN on 03/03/201930 Last Taken: Unknown Dose on Unknown Date & Time Last Action: New Order on 03/03/201930 by EMILY HERNANDEZ RN Hydrocortisone Ac/Lidocaine (Lidocaine-Hc 3-1% Cream Kit) 1 Each Kit, 1 EACH RC TID for BELOW NOSE, (Reported) Entered as Reported by: EMILY HERNANDEZ RN on 03/03/201638 Last Taken: Unknown Dose on Unknown Date & Time Last Action: New Order on 03/03/201638 by EMILY HERNANDEZ RN Ipratropium [place] (Atrovent Hfa) 12.9 Gm Hfa.aer.ad, 2 PUFF IH BID for ALLERGIC RHINITIS, #12.9 Ref 5 (Reported) Entered as Reported by: EMILY HERNANDEZ RN on 03/03/201638 Last Taken: Unknown Dose on Unknown Date & Time Last Action: New Order on 03/03/201638 by EMILY HERNANDEZ RN Lidocaine (Lidocaine PATCH ) 1 Each Adh..patch, 1 EACH TP DAILY for FOR LOCAL PAIN, (Reported) REMOVE AFTER 12 HOURS Entered as Reported by: EMILY HERNANDEZ RN on 03/03/201638 Last Taken: Unknown Dose on Unknown Date & Time Last Action: New Order on 03/03/201638 by EMILY HERNANDEZ RN Montelukast Sodium (Montelukast Sodium Tablet ) 10 Mg Tablet, 10 MG PO HS for FOR ASTHMA, Ref 0 (Reported) Entered as Reported by: EMILY HERNANDEZ RN on 03/03/201638 Last Taken: Unknown Dose on Unknown Date & Time Last Action: New Order on 03/03/201638 by EMILY HERNANDEZ RN Multivitamin With Minerals (Multivitamins With Minerals) 1 Each Tablet, 1 TAB PO DAILY for NUTRITIONAL DEFICIENCY for 30 Days, #30 Ref 0 (Reported) Entered as Reported by: EMILY HERNANDEZ RN on 03/03/201638 Last Taken: Unknown Dose on Unknown Date & Time Last Action: New Order on 03/03/201638 by EMILY HERNANDEZ RN Omeprazole (Omeprazole) 20 Mg Capsule.dr, 20 MG PO DAILY for GERD, (Reported) Entered as Reported by: EMILY HERNANDEZ RN on 03/03/201930 Last Taken: Unknown Dose on Unknown Date & Time Last Action: New Order on 03/03/201930 by EMILY HERNANDEZ RN Polyethylene Glycol 3350 (Miralax) 17 Gm Powd.pack, 1 PACKET PO BID for constipation for 2 Days, #4 Ref 0 (Reported) dissolve in water Entered as Reported by: EMILY HERNANDEZ RN on 03/03/201930 Last Taken: Unknown Dose on Unknown Date & Time Last Action: New Order on 03/03/201930 by EMILY HERNANDEZ RN Propylene Glycol/Peg 400 (Systane 0.3-0.4% Eye Drops) 15 Ml Drops, 1 DROP EACHEYE QID for ALLERGIC RHINITIS , #30 Ref 5 (Reported) Entered as Reported by: EMILY HERNANDEZ RN on 03/03/201638 Last Taken: Unknown Dose on Unknown Date & Time Last Action: New Order on 03/03/201638 by EMILY HERNANDEZ RN Scheduled PRN Lorazepam (Lorazepam Intensol ) 2 Mg/1 Ml Oral.conc, 1 MG SL PRN Q6HRS PRN for ANXIETY / AGITATION for 30 Days, #30 Prescribed by: SIMON ZHANG MD on 03/07/20 1552 Mag Hydrox/Aluminum Hyd/Simeth (Mylanta Maximum Strength Liq) 355 Ml Oral.susp, 30 ML PO PRN Q4HRS PRN for GERD, (Reported) Entered as Reported by: EMILY HERNANDEZ RN on 03/03/201638 Last Taken: Unknown Dose on Unknown Date & Time Last Action: New Order on 03/03/201638 by EMILY HERNANDEZ RN Magnesium Carbonate/Al Hydrox (Gaviscon Es Tablet Chew) 1 Each Tab.chew, 1 EACH PO PRN Q6HRS PRN for GERD, (Reported) Entered as Reported by: EMILY HERNANDEZ RN on 03/03/201930 Last Taken: Unknown Dose on Unknown Date & Time Last Action: New Order on 03/03/201930 by EMILY HERNANDEZ RN Morphine Sulfate (Morphine Sulfate) 100 Mg/5 Ml Solution, 4 MG SL PRN Q3HRS PRN for MODERATE TO SEVERE PAIN for 30 Days, #30 Prescribed by: SIMON ZHANG MD on 03/07/20 1552 Phenyleph/Pramoxin/Glycr/W.pet (Preparation H Cream) 26 Gm Cream..g., 26 GM RC PRN PRN for PAIN, (Reported) Entered as Reported by: EMILY HERNANDEZ RN on 03/03/201930 Last Taken: Unknown Dose on Unknown Date & Time Last Action: New Order on 03/03/201930 by EMILY HERNANDEZ RN Discontinued Medications Amlodipine Besylate (Amlodipine Besylate) 2.5 Mg Tablet, 2.5 MG PO DAILY for HTN, (Reported) Entered as Reported by: EMILY HERNANDEZ RN on 03/03/201638 Last Taken: Unknown Dose on Unknown Date & Time Last Action: New Order on 03/03/201638 by EMILY HERNANDEZ RN Aspirin (Aspirin) 325 Mg Tablet, 1 TAB PO DAILY for PROPHYLACTIC, #30 Ref 5 (Reported) Entered as Reported by: EMILY HERNANDEZ RN on 03/03/201930 Last Taken: Unknown Dose on Unknown Date & Time Last Action: New Order on 03/03/201930 by EMILY HERNANDEZ RN Baclofen (Baclofen) 10 Mg Tablet, 5 MG PO BID for MUSCLE RELAXER, #30 Ref 0 (Reported) Entered as Reported by: EMILY HERNANDEZ RN on 03/03/201930 Last Taken: Unknown Dose on Unknown Date & Time Last Action: New Order on 03/03/201930 by EMILY HERNANDEZ RN Lorazepam (Ativan) 0.5 Mg Tablet, 0.5 MG PO HS for ANXIETY, (Reported) Entered as Reported by: EMILY HERNANDEZ RN on 03/03/201638 Last Taken: Unknown Dose on Unknown Date & Time Last Action: New Order on 03/03/201638 by EMILY HERNANDEZ RN Tramadol Hcl (Tramadol Hcl) 50 Mg Tablet, 50 MG PO Q4HRS PRN for PAIN, (Reported) Entered as Reported by: EMILY HERNANDEZ RN on 03/03/201638 Last Taken: Unknown Dose on Unknown Date & Time Last Action: New Order on 03/03/201638 by EMILY HERNANDEZ RN Trazodone Hcl (Trazodone Hcl) 100 Mg Tablet, 1 TAB PO QHS for INSOMNIA, #30 Ref 1 (Reported) Entered as Reported by: EMILY HERNANDEZ RN on 03/03/201638 Last Taken: Unknown Dose on Unknown Date & Time Last Action: New Order on 03/03/201638 by EMILY HERNANDEZ RN Justicifation of Admission Dx: Justifications for Admission: Justification of Admission Dx: Yes SIMON ZHANG MD Mar 07, 2020 16:04
--- NOTE | 2020-03-07 16:36 | NUR ---
Discharge Note: SR CHANG RYAN Discharge instructions and discharge home medications reviewed with Other facility Vivian ROSA and a copy given. All questions have been answered and understanding verbalized. The following instructions and handouts were given: hospice care Discontinued lines and drains: Peripheral IV intact. Patient discharged to [facility] with Hospice with Ambulance Personnel via [facility]
== END 2020-03-07 16:38 | disposition hospice, inpatient (51) | DRG 441 ==
LOC: ER 10:48 → 2 SOUTH 14:21 → 6 SOUTH 21:06 → 2 NORTH 03-04 15:39
PROVIDERS: ADMIT Internal Medicine; ATTEND Internal Medicine
PROC: 5A12012 Performance of Cardiac Output, Single, Manual (ICD-10-PCS; principal; 2020-03-03)
PROC: 5A09357 Assistance with Respiratory Ventilation, Less than 24 Consecutive Hours, Continuous Positive Airway Pressure (ICD-10-PCS; 2020-03-04)
PROC: 5A09457 Assistance with Respiratory Ventilation, 24-96 Consecutive Hours, Continuous Positive Airway Pressure (ICD-10-PCS; 2020-03-05)
DX: K72.00 Acute and subacute hepatic failure without coma (principal); J96.21 Acute and chronic respiratory failure with hypoxia; J15.6 Pneumonia due to other Gram-negative bacteria; I46.9 Cardiac arrest, cause unspecified; C22.9 Malignant neoplasm of liver, not specified as primary or secondary; G93.40 Encephalopathy, unspecified; I50.42 Chronic combined systolic (congestive) and diastolic (congestive) heart failure; N17.9 Acute kidney failure, unspecified; D47.3 Essential (hemorrhagic) thrombocythemia; E78.5 Hyperlipidemia, unspecified; I25.10 Atherosclerotic heart disease of native coronary artery without angina pectoris; I45.10 Unspecified right bundle-branch block; J44.9 Chronic obstructive pulmonary disease, unspecified; K59.00 Constipation, unspecified; M51.36 Other intervertebral disc degeneration, lumbar region; N28.1 Cyst of kidney, acquired; Z82.49 Family history of ischemic heart disease and other diseases of the circulatory system; Z82.5 Family history of asthma and other chronic lower respiratory diseases; Z96.611 Presence of right artificial shoulder joint; Z96.642 Presence of left artificial hip joint; F41.9 Anxiety disorder, unspecified; K21.9 Gastro-esophageal reflux disease without esophagitis; M19.90 Unspecified osteoarthritis, unspecified site; Z20.828 Contact with and (suspected) exposure to other viral communicable diseases; Z88.8 Allergy status to other drugs, medicaments and biological substances; Z79.899 Other long term (current) drug therapy; Z66 Do not resuscitate; I11.0 Hypertensive heart disease with heart failure; D63.8 Anemia in other chronic diseases classified elsewhere; M81.0 Age-related osteoporosis without current pathological fracture; E87.5 Hyperkalemia; E53.8 Deficiency of other specified B group vitamins; I16.0 Hypertensive urgency
CPT/HCPCS: 36415; 70450; 71045; 71250; 74176; 76700; 80048; 80053; 80061; 80076; 81001; 82550; 83540; 83550; 83605; 83615; 83735; 83880; 84443; 84484; 84550; 85007; 85025; 85379; 85384; 85610; 85730; 93005; 93306; 94640; 94660; 96374; 96375; 96376; 99285; C9113; J0360; J1650; J1885; J1940; J1956; J2060; J2270; J2405; J2920; J2930; J3010; J7030; J7120; G0378; U0003-CS